=== PATIENT | male | born 1950 | race Caucasian/White ===

== ENCOUNTER 2017-04-15 04:48 | Outpatient (CLI) | payer BC | END 2017-04-15 04:49 | disposition home or self-care (01) | LOC: BICRAD 04:48 | PROVIDERS: ATTEND Internal Medicine Medical Oncology | DX: J18.9 Pneumonia, unspecified organism (principal); J98.6 Disorders of diaphragm; R91.8 Other nonspecific abnormal finding of lung field; I70.90 Unspecified atherosclerosis | CPT/HCPCS: 71020 ==

== ENCOUNTER 2017-09-06 11:19 | Outpatient (CLI) | payer BC | END 2017-09-06 11:20 | disposition home or self-care (01) | LOC: BICRAD 11:19 | PROVIDERS: ATTEND Internal Medicine Medical Oncology | DX: C90.00 Multiple myeloma not having achieved remission (principal); J98.11 Atelectasis | CPT/HCPCS: 71046 ==

== ENCOUNTER 2017-11-20 20:26 | Inpatient (IN) | payer BC ==
[~2017-11-20 20:26] MED LIST: ISOVUE-370 76%-LOCM 1 ML ONE
[2017-11-20] MEDS ORDERED: Acetaminophen 500 MG TAB ONE (21:06)
[2017-11-20 21:11] LABS: Bilirubin Negative (Negative); Blood, Urine Moderate (Negative); Clarity CLEAR (Clear); Glucose, Urine (Dipstick) 100 mg/dL (Negative); Leukocyte Negative (Negative); Nitrite Negative (Negative); Protein, Urine (Dipstick) 300 mg/dL (Neg-Trace); Specific Gravity, Urine 1.009 (1.002-1.036); pH, Urine 7.5 (5.0-9.0)
[2017-11-20 21:13] LABS: Bacteria/HPF None Seen HPF (None Seen); Hyaline Casts/LPF 0-3 HYALINE CAST LPF (0-3 Hyaline); Pathc Cast-AUWi Flag 0.29 (0-2.49); Squamous Epithelial 0-3 HPF (0-3); WBC/HPF None Seen HPF (0-3)
--- NOTE | 2017-11-20 21:24 | RAD ---
AP VIEW OF THE CHEST: 11/20/17 INDICATION: History of productive cough, pain in the right shoulder. FINDINGS: There is a left subclavian chest wall port in place. There is elevation of the left hemidiaphragm whi ch is stable. Gastric bubble versus interposed colon bowel gas underlying the left hemidiaphragm is s uspected. There is suspected mild left basilar atelectasis. Heart size is accentuated by the exam blair hnique. There are vascular calcifications involving the aortic arch. No definite consolidation or pne umothorax is evident. IMPRESSION: Mild left basilar atelectasis. POS: [facility]
[2017-11-20 21:29] LABS: ALT (SGPT) 29 U/L (8-55); AST (SGOT) 25 U/L (5-34); Albumin 3.7 g/dL (3.4-4.8); Alkaline Phosphatase 70 U/L (40-150); Anion Gap 12 mmol/L (10-20); BUN (Urea Nitrogen) 26 mg/dL (8.4-25.7); Bilirubin, Total 1.1 mg/dL (0.2-1.2); Calc. Creatinine Clearance 0 mL/min (70-130); Calcium 9.1 mg/dL (7.8-10.44); Carbon Dioxide 25 mmol/L (23-31); Chloride 102 mmol/L (98-107); Estimated GFR-MDRD 72; Globulin 2.5 g/dL (2.4-3.5); Glucose 136 mg/dL (80-115); Potassium 3.8 mmol/L (3.5-5.1); Protein, Total 6.2 g/dL (5.8-8.1); Sodium 135 mmol/L (136-145)
[2017-11-20] MEDS ORDERED: Meropenem 1 GM in Sodium Chloride 0.9% 100 ML IVPB SCH (21:30)
[2017-11-20] MEDS ORDERED: MEROPENEM 1 GM/50 ML 1 GM in Premix Bag 1 BAG IVPB SCH (21:30)
[2017-11-20 21:34] LABS: Actual Bicarbonate (HCO3a) 26.7 mEq/L (22-28); Base Excess (BEa) 3.3 mEq/L (-2.0 to +3.0); CO2 Tension 35.8 mmHg (35.0-45.0); O2 Tension (PaO2) 72.5 mmHg (> 80.0); pH, Arterial 7.49 (7.35-7.45)
[2017-11-20 21:35] LABS: Hematocrit-ABG 35.2 % (42.0-52.0)
[2017-11-20 21:36] LABS: Analyzer IN Cardio ER; Calcium, Ionized 1.2 mmol/L (1.12-1.30)
[2017-11-20 21:37] LABS: Puncture Site RRA
[2017-11-20 21:42] LABS: Band 6 % (5-11); Hemoglobin 12.2 g/dL (14.0-18.0); Lymphocytes 9 % (21-51); MDiff Complete? YES; Macrocytosis SLIGHT = 6-15 cells (100X) (0-5/hpf); Mean Corpuscular HGB CONC 34.2 g/dL (32.0-36.0); Mean Corpuscular Hemoglobin 37.7 pg (27.0-31.0); Mean Platelet Volume 10.1 fL (7.4-10.4); Monocytes 11 % (0-10); Neutrophil 74 % (42-75); PLT Morphology Comment Appears Decreased; Platelet Count 110 thou/uL (130-400); RBC Distribution Width 12.7 % (11.5-14.5); Red Blood Cell (RBC) Count 3.24 mill/uL (4.70-6.10); White Blood Cell (WBC) Count 14.5 thou/uL (4.8-10.8)
[2017-11-21] MEDS ORDERED: Carvedilol 6.25 MG TAB PO SCH (01:45)
[2017-11-21] MEDS ORDERED: hydrALAZINE 20 MG/ML VIAL ONE (02:59)
[2017-11-21] MEDS ORDERED: Ondansetron ODT 4 MG TAB SL PRN (03:22)
[2017-11-21] MEDS ORDERED: Acetaminophen 325 MG TAB PO PRN (03:22)
[2017-11-21] MEDS ORDERED: Ondansetron HCl/PF 4 MG/2 ML Vial IVP PRN (03:22)
[2017-11-21 03:36] VITALS: BMI 27.4
[2017-11-21] MEDS ORDERED: MEROPENEM 1 GM/50 ML 1 GM in Premix Bag 1 BAG IVPB SCH (06:30)
--- NOTE | 2017-11-21 07:08 | CT ---
CT PULMONARY ANGIO WITH CONTRAST: Multiple axial tomograms are obtained through the chest with IV enhancement following an angio protoc ol with multiplanar reconstruction. INDICATION: Dyspnea. The pulmonary arteries show adequate enhancement. There is no evidence of pulmonary embolus. There is patchy infiltrate in both lung bases, more extensive on the right. The findings suggest an inflammatory infiltrate. Mediastinum is unremarkable. Images through the upper abdomen are unremarka ble. IMPRESSION: 1. No evidence of pulmonary embolus. 2. Bibasilar infiltrates more prominent on the right. POS: [facility]
[2017-11-21] MEDS ORDERED: Amlodipine 5 MG TAB PO PRN ×2 (08:27→17:02)
[2017-11-21] MEDS ORDERED: Metoclopramide 10 MG/10 ML UDCUP PO PRN (08:40)
[2017-11-21] MEDS ORDERED: Vancomycin HCl 1.5 GM in Sodium Chloride 0.9% 250 ML 300 ML IVPB SCH (09:00)
--- NOTE | 2017-11-21 09:41 | HP ---
DATE OF SERVICE: 11/21/2017 PRIMARY CARE PROVIDER: Dr. Stephens CHIEF COMPLAINT: Cough. HISTORY OF PRESENT ILLNESS: This is a 67-year-old male with history of multiple myeloma, currently on chemotherapy every 3 weeks, hypertension, dyslipidemia, history of pulmonary embolus on anticoagulation, coronary artery disease with history of myocardial infarction and stent, who presents to the emergency room with the complaint of a cough and generally feeling bad. Patient reports that on his every 3-week cycle of chemotherapy which he completed 3 days ago, it is generally followed by 1 or 2 days of feeling short of breath that usually self resolves. He notes 2 weeks of a productive cough of light green and vickers sputum, in addition to the usual shortness of breath that was worse this time. He complains of coughing and inability to lay flat, sleeping in a chair for a few nights and noticing shortness of breath both at rest and with exertion. He tried some Tessalon Perles and there was no change, notes that may be some improvement with an [id number] cough medication. He denies any precipitating or relieving factors, and denies any history of breathing disorders. Denies any fevers at home/n/v/abd pain. In the emergency room, patient underwent CT angiogram which shows patchy infiltrates, bibasilar, he was treated with Tylenol 1 gram, vancomycin 15 mg/kg , meropenem 1 gram, carvedilol 6.25 mg, hydralazine, and Hospitalist called for admission for sepsis. ALLERGIES: No known allergies to medications. MEDICATIONS: Reviewed with the list brought in by the patient. 1. Carvedilol 6.25 mg b.i.d. 2. Amlodipine 5 mg daily if needed for elevated blood pressure. 3. Atorvastatin 40 mg daily. 4. Esomeprazole 40 mg daily. 5. Valacyclovir 500 mg daily. 6. Eliquis. There is no dosage on the list; however, patient notes that it was recently cut in half for a history of PE last year which I suspect is 2.5 mg b.i.d. 7. Aspirin 81 mg daily. 8. Zofran if needed for nausea. 9. Furosemide 20 mg daily if needed. PAST MEDICAL HISTORY: 1. Multiple myeloma, undergoing chemotherapy every [address] Trinidad. 2. Coronary artery disease with history of myocardial infarction and stent. 3. Hypertension. 4. Dyslipidemia. 5. History of PE in 2017 on anticoagulation. PAST SURGICAL HISTORY: 1. Appendectomy. 2. Splenectomy. 3. Hernia repair x4. 4. Cholecystectomy. 5. A part of his pancreas removed secondary to impacted gallstones. SOCIAL HISTORY: The patient is . His surrogate decision maker is his , Krista, remote history of tobacco use. No regular alcohol use. FAMILY HISTORY: Significant for hypertension and coronary artery disease. REVIEW OF SYSTEMS: Positive for neck pain. The patient states he is from sitting up sleeping, negative for fevers, chills, nausea, vomiting, abdominal pain, chest pain or body aches. All remaining review of systems is reviewed and negative. PHYSICAL EXAMINATION: VITAL SIGNS: Temperature 97.9, of note in the emergency room, it was 100.6, pulse 73, respirations 18, saturations 96% on 2 liters nasal cannula, blood pressure 174/97. GENERAL: Awake, alert and responsive. Appears uncomfortable, but not in acute distress. HEENT: Pupils equal, round and reactive to light. Oral mucosa is pink and moist. NECK: Supple. Tenderness to palpation along the right trapezius muscle. LYMPHATICS: No palpable supraclavicular or cervical lymphadenopathy. LUNGS: Decreased breath sounds at the bases bilateral. No audible wheezing or rhonchi. HEART: Normal S1, S2. Regular rate and rhythm, no audible murmurs. ABDOMEN: Soft with present bowel sounds. Nontender and nondistended. EXTREMITIES: He has trace pitting edema bilateral in the distal lower extremities. SKIN: No visible rashes. NEUROLOGIC: No focal deficits. PSYCHIATRIC: Euthymic, linear, logical, goal directed thought process. LABORATORY DATA: 1. Reviewed. CBC; 14.5, 12.2, 35.8, 110. 2. Chemistry; 135, 3.8, 102, 25, 26, 1.03, 136. 3. LFTs are normal. 4. Urinalysis; present protein, glucose and moderate blood with 4-6 red blood cells. 5. CT angiogram shows patchy infiltrates, right greater than left at the bases. Negative for PE. 6. Chest x-ray mild basilar atelectasis. Elevated left hemidiaphragm. 7. EKG shows sinus rhythm, right axis deviation, rate of 110, prolonged QT interval with a QT corrected of 519, bifascicular block with a right bundle branch block and a left anterior fascicular block. No ST elevation, but some ST depression in V3 through V6. 8. Blood cultures and urine culture obtained. IMPRESSION: 1. Sepsis attributed to pneumonia in a patient at higher risk secondary to chemotherapy. 2. Hypertension, uncontrolled. 3. History of coronary artery disease, currently asymptomatic. 4. Dyslipidemia. 5. History of pulmonary embolus on anticoagulation. 6. Prolonged QT interval. 7. Neck pain -c/w musculoskeletal etiology. PLAN: 1. Admission to the hospital. Continuing the meropenem and vancomycin that was initiated in the emergency room, following blood and urine cultures, with a request to pharmacy to dose the vancomycin. 2. We will order scheduled nebulizer therapy, some Mucinex for cough and monitor the symptoms, wean oxygen as tolerated. 3. Continuing his home medications of carvedilol and amlodipine. We will also continue the furosemide due to the swelling that he has noted. Monitoring his renal function. Use prn hydralazine for significantly elevated blood pressures. 4. Continuing his other home medications of low dose aspirin, valacyclovir, Eliquis and Nexium. 5. Hold on Zofran due to the prolonged QT interval, if needed we will use some Reglan. 6. Anticipated length of stay is at least 2 midnights as patient is at high risk due to the chemotherapy. 7. Deep venous thrombosis prophylaxis, on Eliquis. 8. Gastrointestinal prophylaxis not indicated. 9. Code status is FULL and surrogate decision maker is his , Krista. 10. The patient is at high risk given age, comorbidities, and current presentation. I reviewed the plan of care with the patient who demonstrates understanding and agrees. No questions or further needs at end of evaluation. MTDD
[2017-11-21] MEDS: valACYclovir 500 MG TAB PO SCH (09:43)
[2017-11-21] MEDS: guaiFENesin/DM ER PO SCH ×2 (09:43→20:29)
[2017-11-21] MEDS: Apixaban 2.5 MG TAB PO SCH ×2 (09:43→20:29)
[2017-11-21] MEDS: Furosemide 20 MG TAB PO SCH (09:44)
[2017-11-21] MEDS: Vancomycin HCl 1.5 GM in Sodium Chloride 0.9% 250 ML 300 ML IVPB SCH ×2 (09:45→22:02)
[2017-11-21] MEDS: MEROPENEM 1 GM/50 ML 1 GM in Premix Bag 1 BAG IVPB SCH ×2 (14:22→21:55)
[2017-11-21] MEDS: Carvedilol 6.25 MG TAB PO SCH (16:11)
[2017-11-21] MEDS: hydrALAZINE 20 MG/ML VIAL SLOW IVP PRN ×2 (16:14→20:29)
--- NOTE | 2017-11-21 17:04 | PDOC.EVN ---
Event Note - Event Note Event Note: called by RN for bp 190's/110's, pt has received hydralazine. He also received his evening dose of carvedilol. Earlier c/o neck pain - tylenol added for prn use. Plan - increase amlodipine to bid prn hypertension (pt takes once daily as needed at home) and add lidoderm patch for neck pain to manage this. RN to call back at any time with any concerns. 18:32/blood pressure improved, now in the 150's. Stopped in to see patient and discussed persistent pain along the trapezius, not responding to heat/ice/ tylenol or laying back. Will try the lidoderm patch and if no improvement a lower dose muscle relaxant - pt advised that this can cause him to be drowsy or feel loopy as it relaxes all muscles. Elevated bp's may be due to pain. Will also schedule the amlodipine with hold parameters for blood pressure less than 140/80. Reviewed the plan of care wiht patient//RN, no questions or further needs at end of eval.
[2017-11-21] MEDS: Lidocaine 5% Patch TD SCH (18:19)
[2017-11-21] MEDS: Amlodipine 5 MG TAB PO SCH (20:29)
[2017-11-21] MEDS: Atorvastatin Calcium 40 MG TAB PO SCH (20:29)
[2017-11-21] MEDS: Cyclobenzaprine 10 MG TAB PO PRN (20:30)
[2017-11-21] MEDS: Acetaminophen 500 MG TAB PO PRN (22:39)
[2017-11-22 05:59] LABS: ALT (SGPT) 20 U/L (8-55); AST (SGOT) 18 U/L (5-34); Albumin 3.1 g/dL (3.4-4.8); Alkaline Phosphatase 62 U/L (40-150); Anion Gap 9 mmol/L (10-20); BUN (Urea Nitrogen) 17 mg/dL (8.4-25.7); Bilirubin, Total 1.4 mg/dL (0.2-1.2); Calc. Creatinine Clearance 126 mL/min (70-130); Calcium 8.5 mg/dL (7.8-10.44); Carbon Dioxide 29 mmol/L (23-31); Chloride 100 mmol/L (98-107); Estimated GFR-MDRD Greater than 90; Globulin 2.2 g/dL (2.4-3.5); Glucose 97 mg/dL (80-115); Potassium 3.5 mmol/L (3.5-5.1); Protein, Total 5.3 g/dL (5.8-8.1); Sodium 134 mmol/L (136-145)
[2017-11-22] MEDS: MEROPENEM 1 GM/50 ML 1 GM in Premix Bag 1 BAG IVPB SCH ×2 (06:12→14:14)
[2017-11-22 06:17] LABS: Acanthocytes SLIGHT = 1-5 cells (100X) (None Seen); Band 6 % (5-11); Eosinophils 2 % (0-10); Hemoglobin 11.1 g/dL (14.0-18.0); Lymphocytes 7 % (21-51); MDiff Complete? YES; Mean Corpuscular HGB CONC 33.7 g/dL (32.0-36.0); Mean Corpuscular Hemoglobin 37.9 pg (27.0-31.0); Mean Platelet Volume 11.1 fL (7.4-10.4); Monocytes 11 % (0-10); Neutrophil 74 % (42-75); Nucleated RBC 2 % (0); Platelet Count 90 thou/uL (130-400); RBC Distribution Width 12.7 % (11.5-14.5); Red Blood Cell (RBC) Count 2.94 mill/uL (4.70-6.10)
[2017-11-22] MEDS: Lidocaine Patch Removal TOP SCH (06:25)
[2017-11-22] MEDS: Acetaminophen 500 MG TAB PO PRN ×2 (08:28→20:09)
[2017-11-22] MEDS: Apixaban 2.5 MG TAB PO SCH ×2 (08:29→20:07)
[2017-11-22] MEDS: guaiFENesin/DM ER PO SCH ×2 (08:29→20:07)
[2017-11-22] MEDS: Cyclobenzaprine 10 MG TAB PO PRN ×2 (08:29→20:09)
[2017-11-22] MEDS: Carvedilol 6.25 MG TAB PO SCH ×2 (08:30→17:26)
[2017-11-22] MEDS: Amlodipine 5 MG TAB PO SCH ×2 (08:30→20:07)
[2017-11-22] MEDS: Furosemide 20 MG TAB PO SCH (08:30)
[2017-11-22] MEDS: valACYclovir 500 MG TAB PO SCH (09:11)
[2017-11-22 09:12] LABS: Vancomycin, Trough 12.6 ug/mL
[2017-11-22] MEDS ORDERED: Vancomycin HCl 1.75 GM in Sodium Chloride 0.9% 500 ML IVPB SCH (10:00)
--- NOTE | 2017-11-22 15:43 | PDOC.PN ---
- Subjective Encounter Start Date: 11/22/17 Encounter Start Time: 15:20 -: old records requested/rev Pt seen and examined, chart reviewed in its entirety, this is my first visit with this patient Pt admitted for increased SOB, jia bibasilar infiltrates. started on Merrem Pt getting Cytoxan plus another agemt, history of splenectomy in 1998, myeloma under treatment No f/c, no n/V/D/c, some cough, small amount of sputum, greenish colored. No acute events only complaint is a warm room all systems reviewed and neg x as per HPI - Objective Resuscitation Status: Resuscitation Status FULL:Full Resuscitation MAR Reviewed: Yes Vital Signs & Weight: Vital Signs (12 hours) Temp Pulse Resp BP BP BP Pulse Ox 11/22/17 12:00 97.9 F 76 20 157/89 H 94 L 11/22/17 09:08 84 20 164/101 H 11/22/17 08:30 84 180/100 H 11/22/17 08:18 98.3 F 84 20 94 L 11/22/17 08:00 98.3 F 84 18 180/100 H 94 L 11/22/17 06:40 85 16 95 11/22/17 05:00 98.8 F 82 16 168/94 H 95 Weight Weight 207 lb 14.4 oz I&O: 11/21/17 11/22/17 11/23/17 06:59 06:59 06:59 Intake Total 270 810 Output Total 300 Balance 270 510 Result Diagrams: 11/22/17 04:41 11/22/17 04:41 Radiology Reviewed by me: Yes EKG Reviewed by me: Yes Phys Exam - Physical Examination Constitutional: NAD HEENT: PERRLA, moist MMs, sclera anicteric, oral pharynx no lesions Neck: no nodes, no JVD, supple, full ROM Respiratory: no wheezing, no rales, no rhonchi, clear to auscultation bilateral Cardiovascular: RRR, no significant murmur, no rub Gastrointestinal: soft, non-tender, no distention, positive bowel sounds Musculoskeletal: no edema, pulses present Neurological: non-focal, normal sensation, moves all 4 limbs Lymphatic: no nodes Psychiatric: normal affect, A&O x 3 Skin: no rash, normal turgor, cap refill <2 seconds Dx/Plan (1) CAP (community acquired pneumonia) Code(s): J18.9 - PNEUMONIA, UNSPECIFIED ORGANISM Status: Acute Qualifiers: Laterality: right Lung location: lower lobe of lung Qualified Code(s): J18.1 - Lobar pneumonia, unspecified organism Comment: bibasilar. patchy, likely atypical. Change to levoflox (2) Immunocompromised Code(s): D84.9 - IMMUNODEFICIENCY, UNSPECIFIED Status: Acute Comment: Myeloma, plus splenctomized plus Chemo. Humoral deficiency. (3) CAD (coronary artery disease) Code(s): I25.10 - ATHSCL HEART DISEASE OF [place] CORONARY ARTERY W/O ANG PCTRS Status: Chronic Qualifiers: Coronary Disease-Associated Artery/Lesion type: [place] artery [place] vs. transplanted heart: [place] heart Associated angina: without angina Qualified Code(s): I25.10 - Atherosclerotic heart disease of [place] coronary artery without angina pectoris (4) Hypertension Code(s): I10 - ESSENTIAL (PRIMARY) HYPERTENSION Status: Acute Qualifiers: Hypertension type: essential hypertension Qualified Code(s): I10 - Essential (primary) hypertension (5) Multiple myeloma Code(s): C90.00 - MULTIPLE MYELOMA NOT HAVING ACHIEVED REMISSION Status: Acute Qualifiers: Multiple myeloma remission status: not in remission Qualified Code(s): C90.00 - Multiple myeloma not having achieved remission - Plan cont current plan of care, plan discussed w/ family, continue antibiotics, respiratory therapy, out of bed/ambulate * .
[2017-11-22] MEDS: Lidocaine 5% Patch TD SCH (17:36)
[2017-11-22] MEDS: Atorvastatin Calcium 40 MG TAB PO SCH (20:07)
[2017-11-23] MEDS: hydrALAZINE 20 MG/ML VIAL SLOW IVP PRN (04:07)
[2017-11-23 05:07] LABS: Anion Gap 9 mmol/L (10-20); BUN (Urea Nitrogen) 15 mg/dL (8.4-25.7); Calc. Creatinine Clearance 116 mL/min (70-130); Calcium 8.8 mg/dL (7.8-10.44); Carbon Dioxide 31 mmol/L (23-31); Chloride 104 mmol/L (98-107); Estimated GFR-MDRD Greater than 90; Glucose 99 mg/dL (80-115); Potassium 3.9 mmol/L (3.5-5.1); Sodium 140 mmol/L (136-145)
[2017-11-23 06:35] LABS: Acanthocytes SLIGHT = 1-5 cells (100X) (None Seen); Band 5 % (5-11); Eosinophils 2 % (0-10); Hemoglobin 11.2 g/dL (14.0-18.0); Lymphocytes 7 % (21-51); MDiff Complete? YES; Macrocytosis SLIGHT = 6-15 cells (100X) (0-5/hpf); Mean Corpuscular HGB CONC 34.1 g/dL (32.0-36.0); Mean Corpuscular Hemoglobin 38.2 pg (27.0-31.0); Mean Platelet Volume 9.7 fL (7.4-10.4); Monocytes 18 % (0-10); Neutrophil 68 % (42-75); PLT Morphology Comment Appears Decreased; Platelet Count 128 thou/uL (130-400); RBC Distribution Width 12.7 % (11.5-14.5); Red Blood Cell (RBC) Count 2.94 mill/uL (4.70-6.10); White Blood Cell (WBC) Count 7.7 thou/uL (4.8-10.8)
[2017-11-23] MEDS: valACYclovir 500 MG TAB PO SCH (08:38)
[2017-11-23] MEDS: Apixaban 2.5 MG TAB PO SCH (08:38)
[2017-11-23] MEDS: Cyclobenzaprine 10 MG TAB PO PRN (08:38)
[2017-11-23] MEDS: Acetaminophen 500 MG TAB PO PRN (08:39)
[2017-11-23] MEDS: Carvedilol 6.25 MG TAB PO SCH (08:39)
[2017-11-23] MEDS: guaiFENesin/DM ER PO SCH (08:39)
[2017-11-23] MEDS: Lidocaine Patch Removal TOP SCH (08:40)
[2017-11-23] MEDS: Furosemide 20 MG TAB PO SCH (08:40)
[2017-11-23] MEDS: Amlodipine 5 MG TAB PO SCH (08:40)
[2017-11-23 15:21] VITALS: BP 151/92; TEMP 98.4
== END 2017-11-23 15:40 | disposition home or self-care (01) | DRG 871 ==
LOC: ERS 20:26 → T4-A 11-21 01:15
PROVIDERS: ADMIT Hospitalist; ATTEND Hospitalist
DX: A41.9 Sepsis, unspecified organism (principal); J18.1 Lobar pneumonia, unspecified organism; C90.00 Multiple myeloma not having achieved remission; I45.2 Bifascicular block; Y95 Nosocomial condition; I10 Essential (primary) hypertension; E78.5 Hyperlipidemia, unspecified; I25.10 Atherosclerotic heart disease of native coronary artery without angina pectoris; M54.2 Cervicalgia; I45.81 Long QT syndrome; Z95.5 Presence of coronary angioplasty implant and graft; Z87.891 Personal history of nicotine dependence; Z79.899 Other long term (current) drug therapy; Z79.01 Long term (current) use of anticoagulants; Z79.82 Long term (current) use of aspirin; Z82.49 Family history of ischemic heart disease and other diseases of the circulatory system; Z92.21 Personal history of antineoplastic chemotherapy; Z86.711 Personal history of pulmonary embolism; Z87.19 Personal history of other diseases of the digestive system; I25.2 Old myocardial infarction; Z90.49 Acquired absence of other specified parts of digestive tract; Z90.81 Acquired absence of spleen; Z90.411 Acquired partial absence of pancreas
CPT/HCPCS: 36415; 71045; 71275; 80048; 80053; 80202; 81003; 81015; 82805; 83605; 83735; 85025; 87040; 87086; 93005; 94640; 94760; 96365; 96367; 96375; J0360; J1956; J2185; J3370; J7050; J7620

== ENCOUNTER 2018-04-11 10:44 | Emergency (ER) | payer MEDICARE, BC ==
[2018-04-11] MEDS ORDERED: Acetaminophen 500 MG TAB ONE (11:29)
[2018-04-11] MEDS ORDERED: Morphine 4 MG/ML VIAL ONE (11:30)
--- NOTE | 2018-04-11 12:19 | RAD ---
CHEST 2 VIEWS: HISTORY: Chest pain. Fall. Right low back pain. COMPARISON: Chest radiograph 11/20/2017. FINDINGS: Port catheter tip sits at the superior SVC. Small right effusion. Interposition of bowel between the left hemidiaphragm and the spleen with what appears to be some air fluid levels. No pneumothorax. No displaced right-sided rib fracture. IMPRESSION: 1. Interposition of bowel between the right hemidiaphragm and the spleen with some air fluid levels. Differential includes ileus versus early small bowel obstruction. 2. Mild medial cortical deformity of the right lateral 8th rib may reflect a nondisplaced fracture. POS: [facility]
--- NOTE | 2018-04-11 12:22 | RAD ---
RIGHT RIBS 3 VIEWS: HISTORY: Fall. Injury. COMPARISON: None. FINDINGS: There is a subtle medial cortical deformity of the lateral right 8th rib as well as of the lateral ri ght 9th rib. No pneumothorax. Small right effusion. Port catheter tip is in similar position. Air fluid levels left upper quadrant of the abdomen, likely small bowel. IMPRESSION: 1. Likely nondisplaced right lateral 8th and 9th rib fractures. No underlying pneumothorax. 2. Possible early small bowel obstruction versus ileus. POS: [facility]
== END 2018-04-11 12:30 | disposition home or self-care (01) ==
LOC: ERS 10:44
DX: S22.41XA Multiple fractures of ribs, right side, initial encounter for closed fracture (principal); K56.7 Ileus, unspecified; Z79.899 Other long term (current) drug therapy; Z79.82 Long term (current) use of aspirin; Z79.891 Long term (current) use of opiate analgesic; W19.XXXA Unspecified fall, initial encounter
CPT/HCPCS: 71046; 96372; J2270

== ENCOUNTER 2018-05-14 13:36 | Emergency (ER) | payer MEDICARE, BC ==
[2018-05-14] MEDS ORDERED: Bacitracin Zinc 1 Packet ONE (14:43)
--- NOTE | 2018-05-14 15:35 | CT ---
CT HEAD WITHOUT CONTRAST: DATE: 05/14/2018. COMPARISON: 06/27/2002. HISTORY: Injury, trauma, pain. TECHNIQUE: Axial CT imaging at 5 mm intervals from the vertex through the skull base without contrast. FINDINGS: There is mild mucosal thickening involving the sphenoid sinus and ethmoid air cells on the left. The re is a focal area of scalp swelling in the anterior frontal region superior to the right orbit. No displaced calvarial fracture. No intracranial hemorrhage, midline shift, mass effect, or ventricu lar enlargement. IMPRESSION: Frontal scalp swelling with no displaced fracture or intracranial hemorrhage. POS: [facility]
--- NOTE | 2018-05-14 15:39 | CT ---
FACIAL BONE CT: DATE: 05/14/2018. COMPARISON: None. History Injury, trauma, pain. TECHNIQUE: Axial CT imaging at 2.5 mm intervals through the facial bones without contrast. Coronal and sagittal reformatted imaging obtained. FINDINGS: A small area of frontal scalp swelling in the right supraorbital region noted. Frontal sinuses unrem arkable. There is mucosal thickening involving the ethmoid air cells bilaterally, right greater than left, the left sphenoid sinus, and the left maxillary sinus. N displaced nasal bone fracture. Zygomatic arches and pterygoid plates intact. Bilateral temporoman dibular joints appear within normal limits. No mandibular fracture is seen. Coronal imaging demonstrates no evidence for a fracture of the orbital floor or medial orbital wall o n either side. IMPRESSION: No maxillofacial fracture identified. Paranasal sinus disease as detailed above. POS: [facility]
--- NOTE | 2018-05-14 15:40 | RAD ---
LEFT ELBOW 4 VIEWS: DATE: 05/14/2018. COMPARISON: None. HISTORY: Fall, trauma, pain. FINDINGS: No definite elbow joint effusion. Mild enthesophyte formation at insertion of triceps tendon. No di splaced fracture or dislocation. IMPRESSION: No displaced fracture or evidence of dislocation. POS: [facility]
--- NOTE | 2018-05-14 15:43 | CT ---
CERVICAL SPINE CT WITHOUT CONTRAST 05/14/18 HISTORY: Injury, trauma, pain. TECHNIQUE: Axial CT imaging at 2.5 mm intervals through the cervical spine with coronal and sagittal reformatte d imaging. FINDINGS: The occipital condyles, the dens, and the C1-2 articulation demonstrate no acute findings. There is moderate degenerative change at the atlantoaxial interspace. There is minimal anterolisthesis of C4 on C5 measuring 3 mm. Imaged lung apices grossly unremarkable. Benign hemangioma noted within the right aspect of the C4 vertebral body. No evidence for dens fracture. C1 ring intact. Prominent facet hypertrophy bilaterally at C3-4, right greater than left. Disc space narrowing and mi ld posterior osteophyte present. Prominent bilateral facet hypertrophy at C4-5. At C5-6. There is dis c space narrowing and posterior osteophyte formation as well as mild bilateral facet hypertrophy. At C6-7, there is disc space narrowing, degenerative end plate change, anterior osteophyte formation and posterior osteophyte causing probable significant central canal stenosis. There is no displaced frac ture or evidence of dislocation seen. IMPRESSION: Multilevel degenerative change within the cervical spine, including posterior osteophyte at C6-7 with associated significant central canal stenosis. No acute fracture or dislocation is evident. POS: [facility]
== END 2018-05-14 15:44 | disposition home or self-care (01) ==
LOC: ERS 13:36
DX: S00.33XA Contusion of nose, initial encounter (principal); S00.83XA Contusion of other part of head, initial encounter; S00.03XA Contusion of scalp, initial encounter; I10 Essential (primary) hypertension; Z79.899 Other long term (current) drug therapy; W19.XXXA Unspecified fall, initial encounter
CPT/HCPCS: 70450; 70486; 72125

== ENCOUNTER 2018-06-06 11:36 | Inpatient (IN) | payer MEDICARE, BC ==
--- NOTE | 2018-06-06 12:19 | RAD ---
CHEST 2 VIEWS: Date: 06/06/18 HISTORY: Cough with shortness of breath. COMPARISON: 04/11/18. FINDINGS: Left central line and injection port. Monitor leads overlie the chest. Minimal left hemidiaphragm ca vation with some parenchymal changes adjacent to the hemidiaphragm in the left lower lobe and some mi ld linear stranding in the right infrahilar region and blunting of the right costophrenic angle, all of which appear stable from prior study. No new confluent pneumonia or overt edema. IMPRESSION: Stable chronic bibasilar changes. No evidence for pneumonia. Atherosclerosis of aorta. No new process . POS: [facility]
[2018-06-06 13:24] LABS: Bilirubin Small (Negative); Blood, Urine Large (Negative); Clarity CLEAR (Clear); Glucose, Urine (Dipstick) Negative (Negative); Leukocyte Negative (Negative); Nitrite Negative (Negative); Protein, Urine (Dipstick) > or equal to 300 mg/dL (Neg-Trace); Specific Gravity, Urine 1.026 (1.002-1.036)
[2018-06-06 13:26] LABS: Hemoglobin 12.8 g/dL (14.0-18.0); Mean Corpuscular HGB CONC 32.9 g/dL (32.0-36.0); Mean Corpuscular Hemoglobin 36.7 pg (27.0-31.0); Red Blood Cell (RBC) Count 3.48 mill/uL (4.70-6.10); White Blood Cell (WBC) Count 10.4 thou/uL (4.8-10.8)
[2018-06-06 13:26] LABS: Bacteria/HPF None Seen HPF (None Seen); Hyaline Casts/LPF 7-10 HYALINE CAST LPF (0-3 Hyaline); Pathc Cast-AUWi Flag 1.88 (0-2.49)
[2018-06-06 13:40] LABS: Renal Epithelial None Seen HPF (0-3); Transitional Epithelial NONE SEEN HPF (0-3)
[2018-06-06 13:41] LABS: Acanthocytes SLIGHT = 1-5 cells (100X) (None Seen); Band 8 % (5-11); Lymphocytes 13 % (21-51); MDiff Complete? YES; Macrocytosis SLIGHT = 6-15 cells (100X) (0-5/hpf); Mean Platelet Volume 11.8 fL (7.4-10.4); Monocytes 9 % (0-10); Neutrophil 70 % (42-75); Nucleated RBC 1 % (0); Platelet Count 60 thou/uL (130-400); Platelet Morphology Comment Appears Decreased; Polychromasia SLIGHT = 2-3 cells (100X) (0-2/hpf); RBC Distribution Width 13.5 % (11.5-14.5); Schistocytes SLIGHT = 2-5 cells (100X) (0-1/hpf)
[2018-06-06 13:45] LABS: ALT (SGPT) 31 U/L (8-55); AST (SGOT) 37 U/L (5-34); Albumin 3.3 g/dL (3.4-4.8); Alkaline Phosphatase 60 U/L (40-150); Anion Gap 13 mmol/L (10-20); BUN (Urea Nitrogen) 27 mg/dL (8.4-25.7); Bilirubin, Total 1.6 mg/dL (0.2-1.2); Calc. Creatinine Clearance 0 mL/min (70-130); Calcium 8.5 mg/dL (7.8-10.44); Carbon Dioxide 28 mmol/L (23-31); Chloride 98 mmol/L (98-107); Estimated GFR-MDRD 69; Globulin 2.2 g/dL (2.4-3.5); Glucose 100 mg/dL (80-115); Potassium 3.5 mmol/L (3.5-5.1); Protein, Total 5.5 g/dL (5.8-8.1); Sodium 135 mmol/L (136-145)
[2018-06-06] MEDS ORDERED: Oseltamivir 75 MG CAP PO SCH (14:15)
[2018-06-06] MEDS ORDERED: Acetaminophen 325 MG TAB ONE (14:56)
[2018-06-06] MEDS ORDERED: Ondansetron PF 4 MG/2 ML Vial IVP PRN (15:58)
[2018-06-06] MEDS ORDERED: Calcium Carbonate 500 MG ChewTAB PO PRN (15:58)
[2018-06-06] MEDS ORDERED: Acetaminophen 325 MG TAB PO PRN (15:58)
[2018-06-06] MEDS ORDERED: Senokot S 8.6-50 MG TAB PO PRN (15:58)
[2018-06-06] MEDS ORDERED: Dextrose 5 %-0.45 % NaCl 1,000 ML IV SCH (16:00)
[2018-06-06] MEDS ORDERED: hydrALAZINE 20 MG/ML VIAL SLOW IVP PRN (16:01)
[2018-06-06] MEDS ORDERED: Amlodipine 5 MG TAB PO PRN (16:02)
--- NOTE | 2018-06-06 16:23 | HP ---
PRIMARY CARE PHYSICIAN: Richardson Stephens MD CHIEF COMPLAINT: Fever, chills with cough of one week duration. HISTORY OF PRESENT ILLNESS: The patient is a 67-year-old male with multiple myeloma with recent chemotherapy, presented to the emergency room with above symptoms. Over the last 1 week, the patient developed gradual worsening cough along with shortness of breath, wheezing, fever, and chills. The cough was productive of whitish to green sputum. He had several family members with similar symptoms; however, no one has been diagnosed with flu. He did not take his flu shot due to immunosuppression. He was unable to sleep last night due to persistent coughing and shortness of breath. No orthopnea, paroxysmal nocturnal dyspnea, or leg swelling reported. He denies any skin rash, dysuria, hematuria, urgency, nausea, vomiting, or diarrhea. No altered mentation was reported. In the emergency room, initial vital signs showed temperature 100.3, respirations 22, pulse rate of 73, blood pressure of 186/115 with O2 saturation 96% on room air. Influenza A was positive in the emergency room. Chest x-ray was negative for definite infiltrate. He received Tamiflu, Tylenol with breathing treatment in the emergency room with some improvement in his symptoms. PAST MEDICAL HISTORY: 1. Multiple myeloma. 2. Coronary artery disease with VT and stent placement. 3. History of pulmonary embolism in 2017, on anticoagulation. 4. Hypertension. 5. Dyslipidemia. 6. Paroxysmal atrial fibrillation. PAST SURGICAL HISTORY: 1. Appendectomy. 2. Venectomy. 3. Hernia repair. 4. Cholecystectomy. 5. Partial pancreatectomy due to impacted gallstone. 6. MediPort placement. ALLERGIES: NO KNOWN DRUG ALLERGIES. HOME MEDICATIONS: Verified; 1. Eliquis 2.5 b.i.d. 2. Amlodipine as needed. 3. Carvedilol 25 b.i.d. 4. Citalopram 10 mg daily. 5. Nexium 40 mg daily. 6. Zofran as needed. 7. Valtrex 500 mg daily. 8. Lipitor 40 mg daily. 9. Aspirin 81 mg daily. SOCIAL HISTORY: The patient is , lives at home with his . He denies current use of smoking. He is a former smoker. He makes his own decision with the help of his , Krista. FAMILY HISTORY: Positive for hypertension and coronary artery disease. REVIEW OF SYSTEMS: All other review of systems was reviewed and was negative. PHYSICAL EXAMINATION: VITAL SIGNS: As discussed above. GENERAL: A 67-year-old male with generalized weakness and fatigue. Ill appearing. HEENT: Head, atraumatic and normocephalic. Sclerae anicteric. Moist mucous membranes. Minimal erythema over the pharynx noted. No other oral lesions. NECK: Supple. No JVD. No neck stiffness. LUNGS: Showed rales at bilateral bases with scattered wheezing. No significant accessory muscle use. LUNGS: Symmetrical. Please note that the patient recently received breathing treatments. HEART: S1 and S2 present, regular. No heaves or pulsation. 2/6 systolic murmur over the mitral area. ABDOMEN: Soft and nontender. Bowel sounds present. EXTREMITIES: No edema or calf tenderness. NEUROLOGIC: Grossly nonfocal. Moves all 4 extremities. PSYCHIATRY: Alert, awake, and oriented x3. LYMPH NODE: No palpable lymph nodes in the neck. PERIPHERAL VASCULAR: Radial pulses palpable bilaterally. MUSCULOSKELETAL: No joint swelling tenderness. LABORATORY FINDINGS: Influenza testing as discussed above. WBC count was 10.4 with hemoglobin 12.8, hematocrit 38.8, and platelet of 60. He had 8% bandemia with 13% lymphocytes. Please note that the patient chronically has low WBCs. Last year, his WBC was 4.8. Procalcitonin level was 0.08. Sodium 135, potassium 3.5, chloride 98, bicarb 28, BUN 27, creatinine 1.06, total bilirubin 1.6. AST 37, ALT 31, alkaline phosphatase 60, albumin 3.3 with total protein 5.5. Total bilirubin last week was 0.6. Chest x-ray by my review showed increased bronchopulmonary markings at bases. No definite infiltrate was appreciated. IMPRESSION: 1. Systemic inflammatory response syndrome secondary to influenza A with suspected pneumonia. 2. Abnormal LFTs, probably secondary to #1. 3. Mild hyponatremia. 4. Dehydration. 5. Abnormal LFTs, probably secondary to #1. 6. Moderate protein-calorie malnutrition. 7. Macrocytic anemia. His vitamin B12 was in the low-normal range in 2017 at 300. 8. History of pulmonary embolism and paroxysmal atrial fibrillation, on anticoagulation. 9. Coronary artery disease, status post myocardial infarction and stent placement. 10. Hypertension, uncontrolled at this time. 11. Dyslipidemia. PLAN: The patient will be monitored on the medical floor. We will continue Tamiflu. We will also start empiric antibiotics for suspected pneumonia. Isolation. Gentle hydration. We will resume all of his home medication except for statins due to abnormal LFTs. We will add nebulizer treatment along with Mucinex. We will also start vitamin B12 and folic acid supplementation given his macrocytosis. Blood cultures have been sent. We will recheck labs in a.m. Plan of care was discussed with the patient and the family at the bedside. They stated understanding. Job ID: [id number]
[2018-06-06 17:13] VITALS: BMI 27.1
[2018-06-06] MEDS ORDERED: Prevnar 13-Val Conj/PF 0.5 ML SYRINGE IM ONE (17:15)
[2018-06-06] MEDS ORDERED: Lactated Ringer's 1,000 ML IV SCH (17:15)
[2018-06-06] MEDS: Carvedilol 25 MG TAB PO SCH (17:46)
[2018-06-06] MEDS: Budesonide 0.5 MG/2 ML NEB INH SCH (18:43)
[2018-06-06] MEDS: guaiFENesin ER 600 MG TAB PO SCH (21:50)
[2018-06-06] MEDS: Apixaban 5 MG TAB PO SCH (21:50)
[2018-06-06] MEDS: Oseltamivir 75 MG CAP PO SCH (21:55)
[2018-06-06] MEDS: Dextrose 5 %-0.45 % NaCl 1,000 ML IV SCH (22:32)
[2018-06-07] MEDS: cloNIDine 0.1 MG TAB PO PRN (01:17)
[2018-06-07 07:47] LABS: Hemoglobin 11.4 g/dL (14.0-18.0); Mean Corpuscular Hemoglobin 36.8 pg (27.0-31.0); Mean Platelet Volume 6.6 fL (7.4-10.4); Platelet Count 53 thou/uL (130-400); RBC Distribution Width 13.4 % (11.5-14.5)
[2018-06-07] MEDS: Budesonide 0.5 MG/2 ML NEB INH SCH ×2 (07:56→17:57)
[2018-06-07 08:01] LABS: ALT (SGPT) 23 U/L (8-55); AST (SGOT) 28 U/L (5-34); Albumin 2.8 g/dL (3.4-4.8); Alkaline Phosphatase 49 U/L (40-150); Anion Gap 13 mmol/L (10-20); BUN (Urea Nitrogen) 22 mg/dL (8.4-25.7); Bilirubin, Total 1.5 mg/dL (0.2-1.2); Calc. Creatinine Clearance 113 mL/min (70-130); Calcium 7.8 mg/dL (7.8-10.44); Carbon Dioxide 24 mmol/L (23-31); Chloride 101 mmol/L (98-107); Estimated GFR-MDRD Greater than 90; Globulin 1.8 g/dL (2.4-3.5); Glucose 93 mg/dL (80-115); Magnesium 1.5 mg/dL (1.6-2.6); Phosphorus 2.4 mg/dL (2.3-4.7); Protein, Total 4.6 g/dL (5.8-8.1); Sodium 135 mmol/L (136-145)
[2018-06-07] MEDS: Carvedilol 25 MG TAB PO SCH ×2 (08:28→16:17)
[2018-06-07] MEDS: Apixaban 5 MG TAB PO SCH ×2 (08:29→19:55)
[2018-06-07] MEDS: Cyanocobalamin (Vitamin B-12) 1,000 MCG TAB PO SCH (08:29)
[2018-06-07] MEDS: Folic Acid 1 MG TAB PO SCH (08:30)
[2018-06-07] MEDS: Multivit, Therapeutic 1 TAB PO SCH (08:30)
[2018-06-07] MEDS: Citalopram 10 MG TAB PO SCH (08:30)
[2018-06-07] MEDS: Aspirin 81 mg Enteric Coated Tablet PO SCH (08:30)
[2018-06-07] MEDS: guaiFENesin ER 600 MG TAB PO SCH ×2 (08:30→19:56)
[2018-06-07 08:33] LABS: Band 4 % (5-11); Lymphocytes 4 % (21-51); MDiff Complete? YES; Macrocytosis MODERATE=16-30 cells (100X) (0-5/hpf); Monocytes 7 % (0-10); Neutrophil 85 % (42-75); Nucleated RBC 2 % (0); Ovalocytes SLIGHT = 2-5 cells (100X) (0-1/hpf); Platelet Morphology Comment Appears Decreased
[2018-06-07] MEDS: Oseltamivir 75 MG CAP PO SCH ×2 (08:43→19:55)
[2018-06-07] MEDS: valACYclovir 500 MG TAB PO SCH (08:43)
[2018-06-07] MEDS ORDERED: Non-Formulary Item 1 EACH (Esomeprazole Magnesium [Nexium] 40 MG) PO SCH (09:00)
[2018-06-07] MEDS ORDERED: Aspirin Chewable 81 MG TAB PO SCH (09:00)
[2018-06-07] MEDS ORDERED: Potassium Chloride 20 MEQ TAB PO SCH (09:15)
[2018-06-07] MEDS ORDERED: Magnesium Sulfate 2 GM in Sodium Chloride 0.9% 100 ML IVPB SCH (09:15)
[2018-06-07] MEDS ORDERED: Magnesium 2 GM/50 ML 2 GM in Premix Bag 1 BAG IVPB SCH (10:00)
[2018-06-07] MEDS: Potassium Chloride 20 MEQ TAB PO SCH ×2 (13:47→16:17)
[2018-06-07] MEDS: Dextrose 5 %-0.45 % NaCl 1,000 ML IV SCH (13:49)
--- NOTE | 2018-06-07 17:21 | PDOC.PN ---
- Subjective Encounter Start Date: 06/07/18 Encounter Start Time: 10:30 Patient seen and examined for SIRS/Flu. Dry cough. Feels gen weak. No other complaints. No overnight events - Objective Resuscitation Status - Order Detail: 06/06/18 15:52 Resuscitation Status Routine Resuscitation Status: FULL: Full Resuscitation MAR Reviewed: Yes Vital Signs & Weight: Vital Signs (12 hours) Temp Pulse Resp BP Pulse Ox 06/07/18 16:15 98.6 F 62 20 155/91 H 96 06/07/18 14:18 65 16 06/07/18 12:00 98.1 F 62 20 130/77 97 06/07/18 10:23 60 16 06/07/18 07:57 96 06/07/18 07:56 75 16 96 06/07/18 07:21 99.0 F 65 18 179/100 H 96 Weight Weight 200 lb I&O: 06/06/18 06/07/18 06/08/18 06:59 06:59 06:59 Intake Total 929 100 Output Total 700 Balance 229 100 Result Diagrams: 06/07/18 06:55 06/07/18 06:55 Phys Exam - Physical Examination Constitutional: NAD Respiratory: no wheezing Rales at bases with scat rhonchi Cardiovascular: RRR, no rub Gastrointestinal: soft, non-tender, positive bowel sounds Musculoskeletal: no edema Neurological: moves all 4 limbs Dx/Plan - Plan IMPRESSION: 1. SIRS secondary to influenza A with suspected pneumonia. ?Strep 2. 1/2 Strep bacteremia 3. Abnormal LFTs, probably secondary to #1. 4. Hyponatremia/Hypokalemia/Hypomagnesemia 5. Dehydration. 6. Moderate protein-calorie malnutrition. 7. Macrocytic anemia - due to relative vitamin B12 deficiency 8. History of pulmonary embolism and paroxysmal atrial fibrillation, on anticoagulation. 9. Coronary artery disease, status post myocardial infarction and stent placement. 10. Hypertension, uncontrolled at this time. 11. Dyslipidemia. PLAN: Cont Levaquin Cont Tamiflu Consult ID due to Strep bacteremia 1/2 Cont IVF - reduce rate Replace electrolytes AM labs Cont other meds as below Ambulate Microbiology 06/06/18 Unknown Nasal swab Influenza Types A,B Direct EIA - Final 06/06/18 13:09 Venous blood - Left Arm Blood Culture - Preliminary Streptococcus species 06/06/18 13:04 Venous blood - Right Arm Blood Culture - Preliminary Specimen has been received and culture in progress. No Growth to date. 06/06/18 12:56 Urine voided Urine Culture - Preliminary NO GROWTH AT 12 HOURS Laboratory Tests 06/07/18 06:55 Magnesium 1.5 L Total Bilirubin 1.5 H Review of Systems - Review of Systems Constitutional: weakness (gen) Respiratory: Cough, Dry. negative: Shortness of Breath, Hemoptysis, SOB with Excertion, Pleuritic Pain, Sputum, Wheezing Cardiovascular: negative: chest pain, palpitations, orthopnea, paroxysmal nocturnal dyspnea, edema, light headedness, other Gastrointestinal: negative: Nausea, Vomiting, Abdominal Pain, Diarrhea, Constipation, Melena, Hematochezia, Other - Medications/Allergies Allergies/Adverse Reactions: Allergies Allergy/AdvReac Type Severity Reaction Status Date / Time No Known Allergies Allergy Verified 06/06/18 16:52 Medications: Current Medications Acetaminophen (Tylenol) 650 mg PO Q6H PRN PRN Reason: Headache/Fever/Mild Pain (1-3) Albuterol/Ipratropium (Duoneb) 3 ml NEB [id number] [facility] Last Admin: 06/07/18 14:18 Dose: 3 ml Albuterol/Ipratropium (Duoneb) 3 ml NEB Q2H PRN PRN Reason: SOB &/or Wheezing Amlodipine Besylate (Norvasc) 5 mg PO DAILY PRN PRN Reason: SBP >160 Apixaban (Eliquis) 2.5 mg PO BID [facility] Last Admin: 06/07/18 08:29 Dose: 2.5 mg Aspirin (Ecotrin) 81 mg PO DAILY [facility] Last Admin: 06/07/18 08:30 Dose: 81 mg Budesonide (Pulmicort Neb Solution) 0.5 mg INH BID-RT [facility] Last Admin: 06/07/18 07:56 Dose: 0.5 mg Calcium Carbonate (Tums) 1,000 mg PO Q4H PRN PRN Reason: Heartburn or Indigestion Carvedilol (Coreg) 25 mg PO BID-WM [facility] Last Admin: 06/07/18 16:17 Dose: 25 mg Citalopram Hydrobromide (Celexa) 10 mg PO DAILY [facility] Last Admin: 06/07/18 08:30 Dose: 10 mg Clonidine (Catapres) 0.1 mg PO Q4H PRN PRN Reason: Systolic BP > 180 Last Admin: 06/07/18 01:17 Dose: 0.1 mg Cyanocobalamin (Vitamin B-12) 1,000 mcg PO DAILY [facility] Last Admin: 06/07/18 08:29 Dose: 1,000 mcg Folic Acid (Folvite) 1 mg PO DAILY [facility] Last Admin: 06/07/18 08:30 Dose: 1 mg Guaifenesin (Mucinex) 600 mg PO Q12HR [facility] Last Admin: 06/07/18 08:30 Dose: 600 mg Hydralazine HCl (Apresoline) 10 mg SLOW IVP Q4H PRN PRN Reason: SBP Greater Than 180 Last Admin: 06/07/18 04:18 Dose: 10 mg Levofloxacin 750 mg/ Device 150 mls @ 100 mls/hr IVPB Q24HR [facility] Last Admin: 06/07/18 16:17 Dose: 150 mls Dextrose/Sodium Chloride (D5 1/2 Ns) 1,000 mls @ 50 mls/hr IV .Q20H [facility] Last Admin: 06/07/18 13:49 Dose: 1,000 mls Multivitamins (Theragran) 1 tab PO DAILY [facility] Last Admin: 06/07/18 08:30 Dose: 1 tab Ondansetron HCl (Zofran) 4 mg IVP Q6H PRN PRN Reason: Nausea/Vomiting Oseltamivir Phosphate (Tamiflu) 75 mg PO BID [facility] Stop: 06/10/18 21:01 Last Admin: 06/07/18 08:43 Dose: 75 mg Pantoprazole Sodium (Protonix) 40 mg PO DAILY [facility] Last Admin: 06/07/18 08:30 Dose: 40 mg Potassium Chloride (K-Dur) 20 meq PO TID-[facility] Stop: 06/07/18 23:59 Last Admin: 06/07/18 16:17 Dose: 20 meq Senna/Docusate Sodium (Senokot S) 2 tab PO BID PRN PRN Reason: Constipation Sodium Chloride (Flush - Normal Saline) 10 ml IVF PRN PRN PRN Reason: Saline Flush Last Admin: 06/07/18 08:31 Dose: 10 ml Valacyclovir HCl (Valtrex) 500 mg PO QAM [facility] Last Admin: 06/07/18 08:43 Dose: 500 mg
--- NOTE | 2018-06-07 23:16 | CON ---
DATE OF CONSULTATION: 06/07/2018 REASON FOR CONSULTATION: Influenza and bacteremia. HISTORY OF PRESENT ILLNESS: A 67-year-old, history of multiple myeloma, currently on Cytoxan and proteasome inhibitor, who developed cough, progressively worsening for the past week, fever and chills, some sputum production. Initial findings showed temperature 100.3, respiratory rate 22, pulse 73, BP 180/115. Chest x-ray did not show any infiltrates. He was given Tamiflu and admitted. White cell count 10.4, hemoglobin 12.8. Chemistry showed a creatinine of 1.06. Urinalysis with 7-10 wbc's and microbiology with Streptococcus species in one set of blood cultures out of two. Final ID of the organism is pending. The urine culture with no growth at 12 hours and influenza test was positive for influenza A antigen. He is currently receiving Eliquis, Norvasc, and levofloxacin as well as valacyclovir as well as Tamiflu. Feels a little better. No headaches, no visual symptoms. Little bit of cough, but no sputum production. No chest pain. No abdominal pain. No diarrhea. No genitourinary symptoms. No joint symptoms. MEDICAL HISTORY: Multiple myeloma, on Cytoxan and a proteasome inhibitor. Coronary artery disease, pulmonary embolism, hypertension, dyslipidemia, paroxysmal atrial fibrillation. PAST SURGICAL HISTORY: Appendectomy, venectomy, hernia repair, cholecystectomy, pancreatectomy for impacted gallstone, MediPort placement. ALLERGIES: NONE. SOCIAL HISTORY: . Lives in the area. Former smoker. FAMILY HISTORY: Hypertension, coronary artery disease. CURRENT MEDS: I have listed them above. PHYSICAL EXAMINATION: VITAL SIGNS: Temperature has been normal. T-max 99, blood pressure 150/90, pulse 62, respirations 20, O2 saturation 96%. GENERAL: Appears in no distress. Port access appears okay. HEENT: No lymphadenopathy. Ocular movements are conjugate. Mild conjunctival hyperemia. Nasal and ear exam normal. Oral cavity is normal. NECK: Supple. LUNGS: With scattered bilateral rhonchi and wheezing. A few crackles here and there. HEART: S1 and S2. Regular rate. No S3 or S4. ABDOMEN: Soft, not distended or tender. No ascites. No bladder distention. EXTREMITIES: No joint inflammatory activity. Moves extremities equally. NEUROLOGIC: Cognitive function appears to be intact. LABORATORY DATA: Followup labs; white cell count 9.0, hemoglobin 11.4, platelets 53,000, 85% neutrophils, 4% bands. Magnesium 1.5, bilirubin 1.5. Transaminases normal, alkaline phosphatase 49. ASSESSMENT: Influenza A in the setting of multiple myeloma, in absence of influenza vaccination. Multiple myeloma is not a contraindication for inactivated influenza vaccine. He needs to receive it before he gets discharged. The patient is with immunosuppression associated influenza, may have longer period of viral excretion. He may have to extend the Tamiflu treatment for a few more days beyond the usual five days' time course of treatment for immunocompetent patients. Streptococcus bacteremia might be significant and we will have to wait for the final identification of the organism, but most likely, he will be able to be converted to oral beta-lactam such as amoxicillin for discharge planning. The bacteremia is transient, I do not see any areas of deep-seated involvement at this point in time. Job ID: [id number]
[2018-06-08] MEDS: cloNIDine 0.1 MG TAB PO PRN (05:22)
[2018-06-08] MEDS: Budesonide 0.5 MG/2 ML NEB INH SCH (06:20)
[2018-06-08] MEDS: Carvedilol 25 MG TAB PO SCH (08:03)
[2018-06-08] MEDS: valACYclovir 500 MG TAB PO SCH (08:03)
[2018-06-08] MEDS: Aspirin 81 mg Enteric Coated Tablet PO SCH (08:03)
[2018-06-08] MEDS: Apixaban 5 MG TAB PO SCH (08:03)
[2018-06-08] MEDS: guaiFENesin ER 600 MG TAB PO SCH (08:04)
[2018-06-08] MEDS: Multivit, Therapeutic 1 TAB PO SCH (08:04)
[2018-06-08] MEDS: Cyanocobalamin (Vitamin B-12) 1,000 MCG TAB PO SCH (08:04)
[2018-06-08] MEDS: Citalopram 10 MG TAB PO SCH (08:04)
[2018-06-08] MEDS: Oseltamivir 75 MG CAP PO SCH (08:04)
[2018-06-08] MEDS: Folic Acid 1 MG TAB PO SCH (08:04)
[2018-06-08 09:33] LABS: Hemoglobin 11.1 g/dL (14.0-18.0); Mean Corpuscular HGB CONC 32.8 g/dL (32.0-36.0); Mean Corpuscular Hemoglobin 37.3 pg (27.0-31.0); Mean Platelet Volume 11.8 fL (7.4-10.4); Platelet Count 62 thou/uL (130-400); RBC Distribution Width 13.5 % (11.5-14.5); Red Blood Cell (RBC) Count 2.98 mill/uL (4.70-6.10); White Blood Cell (WBC) Count 6.8 thou/uL (4.8-10.8)
[2018-06-08 09:58] LABS: Band 2 % (5-11); Burr Cells SLIGHT = 2-5 cells (100X) (0-1/hpf); Lymphocytes 24 % (21-51); MDiff Complete? YES; Macrocytosis MODERATE=16-30 cells (100X) (0-5/hpf); Monocytes 15 % (0-10); Neutrophil 58 % (42-75); Platelet Morphology Comment Appears Decreased; Polychromasia SLIGHT = 2-3 cells (100X) (0-2/hpf); Reactive Lymphocytes 1 % (0-10); Schistocytes SLIGHT = 2-5 cells (100X) (0-1/hpf)
[2018-06-08 12:34] LABS: Magnesium 1.9 mg/dL (1.6-2.6); Potassium 3.5 mmol/L (3.5-5.1)
[2018-06-08 14:42] VITALS: BP 145/88; TEMP 98.2
[2018-06-08] MEDS ORDERED: Potassium Chloride 20 MEQ TAB PO SCH (17:00)
--- NOTE | 2018-06-08 17:55 | DIS ---
DATE OF ADMISSION: 06/08/2018 DATE OF DISCHARGE: 06/08/2018 DISCHARGE DISPOSITION: Home. FOLLOWUP: Follow up with primary care physician, Dr. Stephens in 1 week. ALLERGIES: NO KNOWN DRUG ALLERGIES. DISCHARGE MEDICATIONS: 1. Tamiflu 75 mg b.i.d. for 5 more doses. 2. Levaquin 500 mg daily, #7. 3. Multivitamin, folic acid, and vitamin B12 daily. All other home medications were left unchanged. The patient was advised to hold Lipitor until 1 week. He would benefit from repeat LFTs after 1 week. BRIEF HOSPITAL COURSE: The patient is a 67-year-old male with multiple myeloma, presented to the emergency room with fever, and cough of 1 week duration. Please refer to the history and physical for further details. The patient was admitted to the hospital with a diagnosis of influenza A positive along with suspected pneumonia. He was started on broad-spectrum antibiotics that has been changed to oral. One of two blood cultures were positive for alpha strep. Dr. Downey recommended continuing Levaquin. He was started on Tamiflu on admission. Symptomatically, the patient feels much better and appears stable for discharge. He also had electrolyte abnormalities, which were replaced. Bilirubin on the day of discharge 1.5. Magnesium 1.5, this morning was 1.9. Potassium 3.0, this morning was 3.5. FINAL DIAGNOSES: 1. Systemic inflammatory response syndrome secondary to influenza A with suspected pneumonia, suspected streptococcal. 2. Streptococcal bacteremia, one of two. 3. Abnormal LFTs, probably secondary to influenza. The patient was advised to hold statins for 1 week. Repeat LFTs after 1 week is recommended. 4. Hyponatremia. 5. Hypokalemia. 6. Hypomagnesemia. 7. Dehydration. 8. Moderate protein-calorie malnutrition. 9. Macrocytic anemia secondary to relative vitamin B12 deficiency. His vitamin B12 last year was 300. 10. History of pulmonary embolism and paroxysmal atrial fibrillation, on anticoagulation. 11. Coronary artery disease, status post myocardial infarction with stent placement. 12. Hypertension. 13. Dyslipidemia. Plan of care was discussed with the patient. He stated understanding. Job ID: [id number]
== END 2018-06-08 15:02 | disposition home or self-care (01) | DRG 194 ==
LOC: ERS 11:36 → T4-B 14:57 → OBSVTOIN 06-08 07:26
PROVIDERS: ADMIT Internal Medicine; ATTEND Internal Medicine
DX: J10.08 Influenza due to other identified influenza virus with other specified pneumonia (principal); E87.1 Hypo-osmolality and hyponatremia; E44.0 Moderate protein-calorie malnutrition; C90.00 Multiple myeloma not having achieved remission; J15.4 Pneumonia due to other streptococci; E86.0 Dehydration; Z68.27 Body mass index [BMI] 27.0-27.9, adult; D53.9 Nutritional anemia, unspecified; I48.0 Paroxysmal atrial fibrillation; E78.5 Hyperlipidemia, unspecified; E87.6 Hypokalemia; E83.42 Hypomagnesemia; I10 Essential (primary) hypertension; I25.10 Atherosclerotic heart disease of native coronary artery without angina pectoris; E53.8 Deficiency of other specified B group vitamins; Z86.711 Personal history of pulmonary embolism; Z79.01 Long term (current) use of anticoagulants; Z95.5 Presence of coronary angioplasty implant and graft; I25.2 Old myocardial infarction; Z92.21 Personal history of antineoplastic chemotherapy; Z87.891 Personal history of nicotine dependence; Z79.82 Long term (current) use of aspirin; Z79.899 Other long term (current) drug therapy; Z82.49 Family history of ischemic heart disease and other diseases of the circulatory system
CPT/HCPCS: 36415; 71046; 80053; 81003; 81015; 83605; 83735; 84100; 84132; 84145; 85007; 85025; 85027; 87040; 87086; 87149; 87804; 90471; 90670; 94640; 96360; G0009; J0360; J1956; J3475; J7620; J7626

== ENCOUNTER 2018-07-24 08:49 | Emergency (ER) | payer MEDICARE, BC ==
[2018-07-24 09:56] LABS: ALT (SGPT) 38 U/L (8-55); AST (SGOT) 31 U/L (5-34); Albumin 3.6 g/dL (3.4-4.8); Alkaline Phosphatase 47 U/L (40-150); Anion Gap 17 mmol/L (10-20); BUN (Urea Nitrogen) 39 mg/dL (8.4-25.7); Bilirubin, Total 0.6 mg/dL (0.2-1.2); Calc. Creatinine Clearance 0 mL/min (70-130); Calcium 8.8 mg/dL (7.8-10.44); Carbon Dioxide 19 mmol/L (23-31); Chloride 102 mmol/L (98-107); Estimated GFR-MDRD 41; Globulin 2.3 g/dL (2.4-3.5); Glucose 84 mg/dL (80-115); Lipase 30 U/L (8-78); Potassium 3.2 mmol/L (3.5-5.1); Protein, Total 5.9 g/dL (5.8-8.1); Sodium 135 mmol/L (136-145)
[2018-07-24 10:00] LABS: Band 1 % (5-11); Burr Cells SLIGHT = 2-5 cells (100X) (0-1/hpf); Eosinophils 1 % (0-10); Lymphocytes 28 % (21-51); MDiff Complete? YES; Macrocytosis SLIGHT = 6-15 cells (100X) (0-5/hpf); Monocytes 15 % (0-10); Neutrophil 52 % (42-75); Platelet Morphology Comment Appears Decreased; Polychromasia SLIGHT = 2-3 cells (100X) (0-2/hpf); Reactive Lymphocytes 2 % (0-10)
[2018-07-24 10:03] LABS: Hemoglobin 13.5 g/dL (14.0-18.0); Mean Corpuscular Hemoglobin 36.6 pg (27.0-31.0); Ovalocytes SLIGHT = 2-5 cells (100X) (0-1/hpf); Platelet Count 113 thou/uL (130-400); RBC Distribution Width 12.9 % (11.5-14.5); Red Blood Cell (RBC) Count 3.68 mill/uL (4.70-6.10)
== END 2018-07-24 11:22 | disposition home or self-care (01) ==
LOC: SCSER 08:49
DX: E86.0 Dehydration (principal); R19.7 Diarrhea, unspecified; I10 Essential (primary) hypertension
CPT/HCPCS: 80053; 83690; 85025; 96360; 96372; J0500

== ENCOUNTER 2019-06-07 18:02 | Inpatient (IN) | payer MEDICARE, BC ==
[~2019-06-07 18:02] MED LIST changes: -ISOVUE-370 76%-LOCM 1 ML ONE; +Iopamidol-370 76% 500 ML 1 ML ONE
[2019-06-07 18:29] LABS: #Eosinphils 0.7 thou/uL (0.0-0.7); #Monocytes 0.7 thou/uL (0.11-0.59); #Neutrophils 3.1 thou/uL (1.40-6.50); %Basophils 0.2 % (0.0-1.0); %Eosinophils 9.7 % (0.0-10.0); %Lymphocytes 39.7 % (21.0-51.0); %Monocytes 9.4 % (0.0-10.0); %Neutrophils 41.1 % (42.0-75.0); Hemoglobin 11.8 g/dL (14.0-18.0); Mean Corpuscular HGB CONC 33.2 g/dL (32.0-36.0); Mean Platelet Volume 9.6 fL (7.4-10.4); Platelet Count 182 thou/uL (130-400); RBC Distribution Width 14.8 % (11.5-14.5); Red Blood Cell (RBC) Count 3.37 mill/uL (4.70-6.10); White Blood Cell (WBC) Count 7.6 thou/uL (4.8-10.8)
[2019-06-07] MEDS ORDERED: Acetaminophen 500 MG TAB ONE (18:29)
--- NOTE | 2019-06-07 18:46 | RAD ---
XR Chest 1 View Portable History: Chest pain Comparison: Radiograph December 24, 2018 Findings: Port catheter tip projects over the inferior SVC. Lungs are hypoinflated. Elevation left he midiaphragm. Mild blunting right lateral costophrenic sulcus. Pulmonary arteries are dilated. No pneumothorax. No acute osseous abnormality. Impression: 1. Mild blunting right lateral costophrenic sulcus felt to be due to leftward patient rotation less l ikely a small effusion. 2. Lung hypoinflation with bibasilar atelectatic changes. 3. Dilated pulmonary arteries suggesting pulmonary hypertension.
[2019-06-07] MEDS ORDERED: Cefepime 2 GM VIAL ONE (18:47)
[2019-06-07] MEDS ORDERED: Sodium Chloride 0.9% 100 ML ONE (18:47)
[2019-06-07 18:54] LABS: ALT (SGPT) 25 U/L (8-55); AST (SGOT) 16 U/L (5-34); Albumin 3.3 g/dL (3.4-4.8); Alkaline Phosphatase 77 U/L (40-110); Anion Gap 9 mmol/L (10-20); BUN (Urea Nitrogen) 16 mg/dL (8.4-25.7); Bilirubin, Total 1.1 mg/dL (0.2-1.2); Calc. Creatinine Clearance 0 mL/min (70-130); Calcium 8.2 mg/dL (7.8-10.44); Carbon Dioxide 29 mmol/L (23-31); Chloride 100 mmol/L (98-107); Estimated GFR-MDRD 57; Glucose 92 mg/dL (80-115); Potassium 3.3 mmol/L (3.5-5.1); Protein, Total 5.3 g/dL (5.8-8.1); Sodium 135 mmol/L (136-145)
[2019-06-07 18:57] LABS: Helmet Cells SLIGHT = 2-5 cells (100X) (0-1/hpf); MDiff Complete? YES; Macrocytosis SLIGHT = 6-15 cells (100X) (0-5/hpf); Platelet Morphology Comment Appears Adequate; Polychromasia SLIGHT = 2-3 cells (100X) (0-2/hpf); Schistocytes SLIGHT = 2-5 cells (100X) (0-1/hpf); Target Cells SLIGHT = 2-5 cells (100X) (0-1/hpf)
[2019-06-07 19:13] LABS: Magnesium 1.5 mg/dL (1.6-2.6)
[2019-06-07 19:13] LABS: CKMB 1.3 ng/mL (0-6.6)
[2019-06-07] MEDS ORDERED: Potassium Chloride 40 MEQ in Sodium Chloride 0.9% 250 ML 250 ML IVPB SCH (20:45)
--- NOTE | 2019-06-07 20:54 | CT ---
CTA Angio Chest W WO Con History: Chest pain Comparison: Radiograph same day Findings: CT angiogram chest performed after the intravenous ministration of contrast. 3-D rendering was provided. Mild dilatation of the pulmonary arteries. No proximal segmental pulmonary arterial filling defect. No specific pericardial effusion. Incidental note is made of thickening and stranding along the splen ic flexure of the colon suggesting colitis, incompletely evaluated. There is also edema and thickening of the gastric folds. No normal spleen is appreciated. Numerous hypodensities of the liver are incompletely evaluated. Mild atelectatic changes lung bases. Possible faint consolidation medial basal left lower lobe with b ronchial wall thickening. Multiple lytic foci within the axial skeleton. No thoracic spine compression fracture. No acute displ aced rib fracture. Healing right anterior third, fourth, fifth rib fractures as well as lateral right sixth and seventh rib fractures as well as eighth and ninth and 10th rib fractures. Impression: 1. No pulmonary embolism. 2. Incompletely evaluated high-grade thickening and edema along the splenic flexure of the colon coul d be infectious or inflammatory and even posttreatment change given the patient is currently on chemotherapy. 3. Mild right lower lobe bronchitis and faint bronchopneumonia. 4. Healing right-sided rib fractures. 5. Findings of multiple myeloma.
[2019-06-07] MEDS ORDERED: Oseltamivir 75 MG CAP PO SCH (22:15)
[2019-06-07] MEDS ORDERED: Magnesium 2 GM/50 ML BAG (IN WATER) ONE (22:42)
--- NOTE | 2019-06-07 23:29 | PDOC.EVN ---
Event Note - Event Note Event Note: [id number] HP
[2019-06-07 23:45] LABS: Bacteria/HPF None Seen HPF (None Seen); Bilirubin Negative (Negative); Blood, Urine Negative (Negative); Clarity Clear (Clear); Glucose, Urine (Dipstick) Normal (Negative); Leukocyte Negative Leu/uL (Negative); Nitrite Negative (Negative); Protein, Urine (Dipstick) 50 mg/dL (Neg-Trace); RBC/HPF 0-3 HPF (0-3); Squamous Epithelial None Seen HPF (0-3); WBC/HPF 0-3 HPF (0-3)
[2019-06-08] MEDS: Sodium Chloride 0.9% 1,000 ML IV SCH ×3 (00:50→12:13)
[2019-06-08] MEDS: Acetaminophen 325 MG TAB PO PRN ×3 (00:52→19:52)
[2019-06-08 01:08] VITALS: BMI 25.0
--- NOTE | 2019-06-08 02:15 | HP ---
CHIEF COMPLAINT: Weakness. HISTORY OF PRESENT ILLNESS: Mr. Vora is a 68-year-old male with past medical history of multiple myeloma, on chemotherapy, congestive heart failure, coronary artery disease, cardiac stents, hypertension, among others, presented to the emergency room with weakness, lightheadedness and dizziness. The symptoms got worse this morning. No aggravating or relieving factors. Denies chest pain, dysuria, or shortness of breath. Workup in the emergency room, the patient appears dehydrated. Magnesium is 1.5, potassium is 3.3, WBC count is 7.6, hemoglobin 11.8, platelets 182. CTA of the chest was negative for pulmonary embolism. It did show right lower lobe bronchitis and faint bronchopneumonia. Septic workup done in the ED. The patient was started on IV antibiotics. The patient also had a slight increase in his troponin of 0.05. The patient is denying chest pain. Also, the patient was tested positive for influenza A. The patient is being admitted to the hospital for further management. PAST MEDICAL HISTORY: 1. Multiple myeloma. 2. Hypertension. 3. Coronary artery disease. 4. Congestive heart failure. 5. Pancreatitis. PAST SURGICAL HISTORY: 1. Appendectomy. 2. Cholecystectomy. 3. Splenectomy. 4. Part of the pancreas removed. 5. Hernia repair. SOCIAL HISTORY: Denies alcohol use. Former smoker. FAMILY HISTORY: Reviewed and noncontributory. HOME MEDICATIONS: Please see home medication reconciliation form for updated medications. ALLERGIES: NO KNOWN ALLERGIES. REVIEW OF SYSTEMS: Review of 14 systems negative except what is mentioned in the history of present illness. PHYSICAL EXAMINATION: GENERAL: The patient is lethargic, but able to answer questions. VITAL SIGNS: Blood pressure 104/66, pulse is 63, respiratory rate is 18, temperature 98.6, pulse oximetry 99% on room air. HEAD: Normocephalic, atraumatic. NECK: Supple. CHEST: Fair bilateral air entry. HEART: S1, S2, regular. ABDOMEN: Soft, nontender. Bowel sounds present. NEUROLOGIC: Awake, alert, moves extremities. PSYCHIATRIC: Unable to assess. EXTREMITIES: No clubbing or cyanosis. LABORATORY DATA: Labs as mentioned above in the history of present illness. CTA of the chest as mentioned above in the history of present illness. ASSESSMENT: 1. Pneumonia in an immunocompromised patient. 2. Influenza A. 3. Hypokalemia. 4. Hypomagnesemia. 5. Dehydration. 6. Multiple myeloma, on chemotherapy, immunocompromised. 7. Congestive heart failure. 8. Coronary artery disease. PLAN: 1. Admit. 2. Septic workup including blood cultures. 3. IV antibiotics. Continue with IV vancomycin and cefepime. 4. The patient was given Tamiflu in the ED. 5. IV fluid hydration, reassess in a.m. 6. Reconcile home medications. 7. DVT prophylaxis as appropriate. 8. Droplet isolation. 9. Expected length of stay 2 midnights or more. Job ID: [id number]
[2019-06-08 04:43] LABS: Hemoglobin 10.2 g/dL (14.0-18.0); Mean Corpuscular HGB CONC 32.9 g/dL (32.0-36.0); Mean Corpuscular Hemoglobin 34.8 pg (27.0-31.0); Mean Platelet Volume 9.7 fL (7.4-10.4); Platelet Count 171 thou/uL (130-400); RBC Distribution Width 14.9 % (11.5-14.5); Red Blood Cell (RBC) Count 2.93 mill/uL (4.70-6.10); White Blood Cell (WBC) Count 6.9 thou/uL (4.8-10.8)
[2019-06-08 05:12] LABS: ALT (SGPT) 20 U/L (8-55); AST (SGOT) 13 U/L (5-34); Albumin 2.8 g/dL (3.4-4.8); Alkaline Phosphatase 63 U/L (40-110); Anion Gap 9 mmol/L (10-20); BUN (Urea Nitrogen) 16 mg/dL (8.4-25.7); Bilirubin, Total 1.2 mg/dL (0.2-1.2); Calc. Creatinine Clearance 71 mL/min (70-130); Calcium 7.8 mg/dL (7.8-10.44); Carbon Dioxide 27 mmol/L (23-31); Chloride 103 mmol/L (98-107); Estimated GFR-MDRD 62; Globulin 2.3 g/dL (2.4-3.5); Glucose 96 mg/dL (80-115); Potassium 3.5 mmol/L (3.5-5.1); Protein, Total 5.1 g/dL (5.8-8.1); Sodium 135 mmol/L (136-145)
[2019-06-08 05:14] LABS: Band 9 % (5-11); Eosinophils 10 % (0-10); Lymphocytes 27 % (21-51); MDiff Complete? YES; Monocytes 5 % (0-10); Neutrophil 48 % (42-75); Reactive Lymphocytes 1 % (0-10)
[2019-06-08] MEDS: Saccharomyces boulardii 250 MG CAP PO SCH (08:56)
[2019-06-08] MEDS: Oseltamivir 75 MG CAP PO SCH ×2 (08:56→19:52)
[2019-06-08] MEDS: Enoxaparin Sodium 40 MG/0.4 ML SYRINGE SC SCH (08:56)
[2019-06-08] MEDS: hydrALAZINE 20 MG/ML VIAL SLOW IVP PRN ×2 (09:00→19:54)
[2019-06-08] MEDS: Vancomycin HCl 1 GM in Premix Bag 1 BAG IVPB SCH ×2 (09:10→19:52)
[2019-06-08] MEDS: Cefepime 2 GM in Sodium Chloride 0.9% 100 ML IVPB SCH ×2 (09:11→19:51)
--- NOTE | 2019-06-08 17:06 | PDOC.HOSPP ---
- Subjective Encounter Date: 06/08/19 Encounter Time: 09:00 Subjective: pt up in bed still feels weak all over. - Objective Vital Signs & Weight: Vital Signs (12 hours) Temp Pulse Resp BP BP Pulse Ox 06/08/19 16:20 98.3 F 72 20 168/79 H 95 06/08/19 12:14 100 F H 79 20 138/86 95 06/08/19 09:00 65 187/60 H 06/08/19 08:30 100.1 F H 65 20 192/90 H 95 Weight Weight 189 lb 6.4 oz Result Diagrams: 06/08/19 04:27 06/08/19 04:27 Hospitalist ROS - Review of Systems Respiratory: denies: cough, dry, shortness of breath, hemoptysis, SOB with excertion, pleuritic pain, sputum, wheezing, other Cardiovascular: denies: chest pain, palpitations, orthopnea, paroxysmal noc. dyspnea, edema, light headedness, other Gastrointestinal: denies: nausea, vomiting, abdominal pain, diarrhea, constipation, melena, hematochezia, other Genitourinary: denies: dysuria, frequency, incontinence, hematuria, retention, other - Medication Medications: Active Medications Generic Name Dose Route Start Last Admin Trade Name Freq PRN Reason Stop Dose Admin Acetaminophen 650 mg 06/07/19 22:38 06/08/19 08:56 Tylenol PO 650 mg Q4H PRN Administration Headache/Fever/Mild Pain (1-3) Enoxaparin Sodium 40 mg 06/08/19 09:00 06/08/19 08:56 Lovenox SC 40 mg 0900 VIJAY Administration Hydralazine HCl 5 mg 06/08/19 08:24 06/08/19 09:00 Apresoline SLOW IVP 5 mg Q4H PRN Administration Hypertension Cefepime HCl 2 gm/ Sodium 100 mls @ 200 mls/hr 06/08/19 08:00 06/08/19 09:11 Chloride IVPB 100 mls 0800,2000 VIJAY Administration Vancomycin HCl 1 gm/ Device 200 mls @ 200 mls/hr 06/08/19 09:00 06/08/19 09: 10 IVPB 200 mls Q12HR VIJAY Administration Sodium Chloride 1,000 mls @ 75 mls/hr 06/07/19 22:45 06/08/19 12:13 Normal Saline 0.9% IV Not Given .[id number] VIJAY Oseltamivir Phosphate 75 mg 06/08/19 09:00 06/08/19 08:56 Tamiflu PO 06/12/19 21:01 75 mg BID VIJAY Administration Saccharomyces Boulardii 250 mg 06/08/19 09:00 06/08/19 08:56 Florastor PO 250 mg DAILY VIJAY Administration Sodium Chloride 10 ml 06/08/19 09:00 06/08/19 09:00 Flush - Normal Saline IVF 10 ml Q12HR VIJAY Administration - Exam Neck: negative: supple, symmetric, no JVD, no thyromegaly, no lymphadenopathy, no carotid bruit, JVD Heart: negative: RRR, no murmur, no gallops, no rubs, normal peripheral pulses, irregular, diminshed peripheral pulses, murmur present, II/IV, III/IV Respiratory: negative: CTAB, no wheezes, no rales, no ronchi, normal chest expansion, no tachypnea, normal percussion, rales, rhonchi, tachypneic, wheezes Gastrointestinal: negative: soft, non-tender, non-distended, normal bowel sounds , no palpable masses, no hepatomegaly, no splenomegaly, no bruit, no guarding, no rigidity, tender to palpation, distended, diminished bowl sounds, voluntary guarding Hosp A/P (1) Influenza A Code(s): J10.1 - FLU DUE TO OTH IDENT INFLUENZA VIRUS W OTH RESP MANIFEST Status: Acute (2) Hypertension Code(s): I10 - ESSENTIAL (PRIMARY) HYPERTENSION Status: Acute Qualifiers: (3) Multiple myeloma Code(s): C90.00 - MULTIPLE MYELOMA NOT HAVING ACHIEVED REMISSION Status: Acute Qualifiers: (4) CAD (coronary artery disease) Code(s): I25.10 - ATHSCL HEART DISEASE OF [place] CORONARY ARTERY W/O ANG PCTRS Status: Chronic Qualifiers: - Plan will continue iv abx for now. pt is on revlimid but he is off this med for now. He is on tamiflu. will get PT to see pt since states that he has been unsteady.
[2019-06-08] MEDS ORDERED: Non-Formulary Item 1 EACH (Esomeprazole Magnesium [Nexium] 40 MG) PO PRN (17:11)
[2019-06-08] MEDS: Carvedilol 25 MG TAB PO SCH (19:52)
[2019-06-08] MEDS: Atorvastatin Calcium 20 MG TAB PO SCH (19:52)
[2019-06-09] MEDS: Sodium Chloride 0.9% 1,000 ML IV SCH ×2 (05:33→15:51)
[2019-06-09] MEDS: Cefepime 2 GM in Sodium Chloride 0.9% 100 ML IVPB SCH ×2 (08:51→20:06)
[2019-06-09] MEDS: Citalopram 10 MG TAB PO SCH (08:52)
[2019-06-09] MEDS: Oseltamivir 75 MG CAP PO SCH ×2 (08:52→20:06)
[2019-06-09] MEDS: Enoxaparin Sodium 40 MG/0.4 ML SYRINGE SC SCH (08:52)
[2019-06-09] MEDS: Carvedilol 25 MG TAB PO SCH ×2 (08:52→20:06)
[2019-06-09] MEDS: Aspirin Chewable 81 MG TAB PO SCH (08:52)
[2019-06-09] MEDS: Saccharomyces boulardii 250 MG CAP PO SCH (08:52)
[2019-06-09 08:54] LABS: Vancomycin, Trough 13.3 ug/mL
[2019-06-09] MEDS: Vancomycin HCl 1 GM in Premix Bag 1 BAG IVPB SCH (09:49)
--- NOTE | 2019-06-09 13:46 | PDOC.HOSPP ---
- Subjective Encounter Date: 06/09/19 Encounter Time: 10:15 Subjective: pt up in bed feels well. - Objective Vital Signs & Weight: Vital Signs (12 hours) Temp Pulse Resp BP Pulse Ox 06/09/19 11:30 98.5 F 57 L 18 135/79 98 06/09/19 09:55 100/64 06/09/19 08:12 98.4 F 60 18 184/89 H 100 06/09/19 03:50 98.4 F 71 18 178/89 H 95 Weight Weight 189 lb 6.4 oz I&O: 06/08/19 06/09/19 06/10/19 06:59 06:59 06:59 Intake Total 2100 Output Total 1850 Balance 250 Result Diagrams: 06/08/19 04:27 06/08/19 04:27 Hospitalist ROS - Review of Systems Cardiovascular: denies: chest pain, palpitations, orthopnea, paroxysmal noc. dyspnea, edema, light headedness, other Gastrointestinal: denies: nausea, vomiting, abdominal pain, diarrhea, constipation, melena, hematochezia, other Genitourinary: denies: dysuria, frequency, incontinence, hematuria, retention, other Musculoskeletal: denies: neck pain, shoulder pain, arm pain, back pain, hand pain, leg pain, foot pain, other - Medication Medications: Active Medications Generic Name Dose Route Start Last Admin Trade Name Freq PRN Reason Stop Dose Admin Acetaminophen 650 mg 06/07/19 22:38 06/08/19 19:52 Tylenol PO 650 mg Q4H PRN Administration Headache/Fever/Mild Pain (1-3) Aspirin 81 mg 06/09/19 09:00 06/09/19 08:52 Aspirin Chewable PO 81 mg DAILY VIJAY Administration Atorvastatin Calcium 40 mg 06/08/19 21:00 06/08/19 19:52 Lipitor PO 40 mg QPM VIJAY Administration Carvedilol 25 mg 06/08/19 21:00 06/09/19 08:52 Coreg PO 25 mg BID VIJAY Administration Citalopram Hydrobromide 10 mg 06/09/19 09:00 06/09/19 08:52 Celexa PO 10 mg DAILY VIJAY Administration Enoxaparin Sodium 40 mg 06/08/19 09:00 06/09/19 08:52 Lovenox SC 40 mg 0900 VIJAY Administration Hydralazine HCl 5 mg 06/08/19 08:24 06/08/19 19:54 Apresoline SLOW IVP 5 mg Q4H PRN Administration Hypertension Cefepime HCl 2 gm/ Sodium 100 mls @ 200 mls/hr 06/08/19 08:00 06/09/19 08:51 Chloride IVPB 100 mls 0800,2000 VIJAY Administration Sodium Chloride 1,000 mls @ 75 mls/hr 06/07/19 22:45 06/09/19 05:33 Normal Saline 0.9% IV 1,000 mls .[id number] VIJAY Administration Oseltamivir Phosphate 75 mg 06/08/19 09:00 06/09/19 08:52 Tamiflu PO 06/12/19 21:01 75 mg BID VIJAY Administration Saccharomyces Boulardii 250 mg 06/08/19 09:00 06/09/19 08:52 Florastor PO 250 mg DAILY VIJAY Administration Sodium Chloride 10 ml 06/08/19 09:00 06/09/19 08:52 Flush - Normal Saline IVF 10 ml Q12HR VIJAY Administration - Exam Neck: negative: supple, symmetric, no JVD, no thyromegaly, no lymphadenopathy, no carotid bruit, JVD Heart: negative: RRR, no murmur, no gallops, no rubs, normal peripheral pulses, irregular, diminshed peripheral pulses, murmur present, II/IV, III/IV Respiratory: negative: CTAB, no wheezes, no rales, no ronchi, normal chest expansion, no tachypnea, normal percussion, rales, rhonchi, tachypneic, wheezes Gastrointestinal: negative: soft, non-tender, non-distended, normal bowel sounds , no palpable masses, no hepatomegaly, no splenomegaly, no bruit, no guarding, no rigidity, tender to palpation, distended, diminished bowl sounds, voluntary guarding Hosp A/P (1) Influenza A Code(s): J10.1 - FLU DUE TO OTH IDENT INFLUENZA VIRUS W OTH RESP MANIFEST Status: Acute (2) Hypertension Code(s): I10 - ESSENTIAL (PRIMARY) HYPERTENSION Status: Acute Qualifiers: (3) Multiple myeloma Code(s): C90.00 - MULTIPLE MYELOMA NOT HAVING ACHIEVED REMISSION Status: Acute Qualifiers: (4) CAD (coronary artery disease) Code(s): I25.10 - ATHSCL HEART DISEASE OF [place] CORONARY ARTERY W/O ANG PCTRS Status: Chronic Qualifiers: (5) Pneumonia Code(s): J18.9 - PNEUMONIA, UNSPECIFIED ORGANISM Status: Acute - Plan will continue iv abx for now. pt is on revlimid but he is off this med for now. He is on tamiflu. will get PT to see pt since states that he has been unsteady. / pt appear well, will stop vanco and continue cefepime. if he continues to improve in am will discharge him home.
[2019-06-09] MEDS: Acetaminophen 325 MG TAB PO PRN (15:54)
[2019-06-09] MEDS: Atorvastatin Calcium 20 MG TAB PO SCH (20:06)
[2019-06-10 08:08] VITALS: TEMP 98.4
[2019-06-10] MEDS: Cefepime 2 GM in Sodium Chloride 0.9% 100 ML IVPB SCH (08:30)
[2019-06-10] MEDS: Citalopram 10 MG TAB PO SCH (08:31)
[2019-06-10] MEDS: Saccharomyces boulardii 250 MG CAP PO SCH (08:31)
[2019-06-10] MEDS: Oseltamivir 75 MG CAP PO SCH (08:31)
[2019-06-10] MEDS: Aspirin Chewable 81 MG TAB PO SCH (08:31)
[2019-06-10] MEDS: Carvedilol 25 MG TAB PO SCH (08:31)
[2019-06-10] MEDS: Enoxaparin Sodium 40 MG/0.4 ML SYRINGE SC SCH (08:31)
[2019-06-10] MEDS ORDERED: Potassium Chloride 20 MEQ TAB PO SCH (09:00)
--- NOTE | 2019-06-10 09:46 | DIS ---
DATE OF ADMISSION: 06/07/2019 DATE OF DISCHARGE: 06/10/2019 PRIMARY CARE PROVIDER: Richardson Stephens MD DISCHARGE DIAGNOSES: 1. Influenza A infection. 2. Right lower lobe pneumonia, suspected to be secondary to gram-negative organisms. 3. Hypokalemia. 4. Hyponatremia. 5. Hypomagnesemia. 6. Hypertensive urgency. CONDITION OF PATIENT ON THE DAY OF DISCHARGE: Stable. I assessed Mr. Vora on the day of discharge. He denies any chest pain or shortness of breath. Vital signs are stable. S1 and S2 are heard, regular. Lungs are clear to auscultation bilaterally. POST ACUTE CARE FOLLOWUP: Primary care provider in 3 days. DISCHARGE MEDICATIONS: New medications: 1. Omnicef 300 mg 2 times a day for 1 week. 2. Tamiflu 75 mg 2 times a day for 5 more doses. Otherwise, the rest of his home medications were continued and include 1. Vitamin D3 50,000 units every week. 2. Aspirin 81 mg daily. 3. Lipitor 40 mg in the evening. 4. Coreg 25 mg 2 times a day. 5. Celexa 10 mg daily. 6. Dexamethasone as directed. 7. Valacyclovir 500 mg daily. 8. Esomeprazole 40 mg daily. 9. Zofran 8 mg 3 times a day as needed. HOSPITAL COURSE: Mr. Vora is a pleasant 68-year-old gentleman with a history of immunocompromised secondary to chemotherapy, who was admitted to the hospital on June 07, 2019, for influenza A infection and right lower lobe bronchopneumonia. He improved with Tamiflu and intravenous antibiotics. He is being stepped down to oral antibiotics prior to discharge home. He was evaluated by Physical Therapy Service and has been advised a rolling walker. Many thanks for allowing me to participate in your patient's care. Please feel free to contact me with any questions or concerns. ACTIVITY: As tolerated. DIET: Heart-healthy diet. DISCHARGE DESTINATION: Home. TIME SPENT: Total amount of time spent coordinating this discharge: 32 minutes. Job ID: [id number] MTDD
[2019-06-10 11:34] VITALS: BP 160/83
[2019-06-10] MEDS ORDERED: Cefdinir 300 MG CAP PO SCH (21:00)
--- NOTE | 2019-06-11 12:01 | PDOC.EVN ---
Event Note - Event Note Event Note: Late entry note: Pt seen by PT, pt has unsteady gait and needs needs rolling walker for use at home. Prescription fiven to the patient for rolling walker.
--- NOTE | 2019-06-12 22:00 | PQF ---
SAP Tester Wafer Substrate Crystal Reports Winform Viewer MARGA TEJADA FABIANA GUIDRY [id number] [id number] CLINICAL DOCUMENTATION CLARIFICATION FORM: POST DISCHARGE Addendum to original discharge summary date: ____ Late entry note date: __ DATE: 06/12/19 ATTN: Fabiana Rios Please exercise your independent, professional judgment in responding to the clarification form. Clinical indicators are provided on the bottom of this form for your review Can you please further clarify the diagnosis of the patient based on the clinical indicators below? Please check appropriate box(es): [ ] Sepsis due to: (Pna, UTI, gangrenous gall bladder, etc.) [ X ] Localized infection without sepsis [ ] Other diagnosis [ ] Unable to determine In addition, please specify: Present on Admission (POA): [ X ] Yes [ ] No [ ] Unable to determine For continuity of documentation, please document condition throughout progress notes and discharge summary. Thank You. CLINICAL INDICATORS - SIGNS / SYMPTOMS / LABS H and P pg.1- weakness H and P pg.1- right lower lobe bronchitis and faint bronchopneumonia H and P pg.1- Septic work up done in ED H and P pg.2- VS BP 104/66, pulse is 63, RR is 18, temp 98.6 Ds pg.1- right lower lobe pneumonia suspected to be secondary to gram negative organism RISK FACTORS 68 years old- H and P pg.1 Multiple myeloma- H and P pg.1 Hypertension- H and P pg.1 CAD_ H and P pg.1 CHF- H and P pg.1 Pneumonia- H and P pg.2 Influenza A- H and P pg.2 TREATMENTS: Septic work up- H and P pg.2 IV antibiotics- MAR Chest X ray 06/07 Chest/thorax CTA- 06/07 IV fluids- MAR Tamiflu- MAR (This form is maintained as a part of the permanent medical record) 2014 [employer] All Rights Reserved Nathanael [email or web address]
== END 2019-06-10 11:38 | disposition home or self-care (01) | DRG 178 ==
LOC: ERS 18:02 → 2NO 23:28
PROVIDERS: ADMIT Internal Medicine; ATTEND Internal Medicine
DX: J10.08 Influenza due to other identified influenza virus with other specified pneumonia (principal); C90.00 Multiple myeloma not having achieved remission; J15.6 Pneumonia due to other Gram-negative bacteria; E87.1 Hypo-osmolality and hyponatremia; I11.0 Hypertensive heart disease with heart failure; I16.0 Hypertensive urgency; I50.9 Heart failure, unspecified; I25.10 Atherosclerotic heart disease of native coronary artery without angina pectoris; E87.6 Hypokalemia; E83.42 Hypomagnesemia; E86.0 Dehydration; Z90.49 Acquired absence of other specified parts of digestive tract; Z87.891 Personal history of nicotine dependence; I25.2 Old myocardial infarction; Z79.01 Long term (current) use of anticoagulants; Z79.82 Long term (current) use of aspirin; Z79.899 Other long term (current) drug therapy; Z95.5 Presence of coronary angioplasty implant and graft; R26.81 Unsteadiness on feet
CPT/HCPCS: 36415; 71045; 71275; 80053; 80202; 81003; 81015; 82550; 82553; 83605; 83735; 84484; 85007; 85025; 85027; 87040; 87804; 93005; 96365; 96366; 96367; 96368; J0360; J0692; J1650; J3370; J3475; J3480; J3490; J7050; Q9967

== ENCOUNTER 2019-12-22 08:32 | Emergency (ER) | payer MEDICARE, BC ==
[2019-12-22] MEDS ORDERED: Adacel (T-DAP) 0.5 ML SYRINGE ONE (08:56)
--- NOTE | 2019-12-22 09:25 | CT ---
CT BRAIN NONCONTRAST: DATE: 12/22/2019 HISTORY: 69-year-old male status post acute head trauma from fall FINDINGS: There is no evidence of acute intra-axial or extra-axial hemorrhage. There is no midline shift or any other mass effect. There is no extra-axial fluid collection. There is no evidence of obstructive hydrocephalus. Calvarium is intact. IMPRESSION: 1. No acute intracranial findings. 2. Right supraorbital and periorbital acute, traumatic superficial soft tissue hematoma.
--- NOTE | 2019-12-22 09:27 | CT ---
CT CERVICAL SPINE NONCONTRAST: DATE: 12/22/2019 HISTORY: cervical trauma FINDINGS: There are no jumped or perched facets. There is no evidence of acute fracture. The vertebral body hei ghts are maintained. There is no prevertebral soft tissue swelling. There are degenerative disc changes and facet osteoarthrosis. IMPRESSION: 1) Cervical spondylosis. 2) no evidence of acute fracture or acute traumatic subluxation.
== END 2019-12-22 09:45 | disposition home or self-care (01) ==
LOC: ERS 08:32
DX: S40.011A Contusion of right shoulder, initial encounter (principal); S00.31XA Abrasion of nose, initial encounter; S00.211A Abrasion of right eyelid and periocular area, initial encounter; S60.512A Abrasion of left hand, initial encounter; S60.511A Abrasion of right hand, initial encounter; I11.0 Hypertensive heart disease with heart failure; I50.9 Heart failure, unspecified; I25.2 Old myocardial infarction; Z87.891 Personal history of nicotine dependence; Z79.01 Long term (current) use of anticoagulants; Z79.82 Long term (current) use of aspirin; Z79.899 Other long term (current) drug therapy; W18.09XA Striking against other object with subsequent fall, initial encounter
CPT/HCPCS: 70450; 72125; 90471; 90715

== ENCOUNTER 2020-01-02 18:52 | Inpatient (IN) | payer MEDICARE, BC ==
--- NOTE | 2020-01-02 19:34 | RAD ---
Exam: Chest one view HISTORY:Fall. Pain. Injury. Comparison: 06/07/2019 FINDINGS: Cardiac silhouette:Stable cardiac silhouette Lines and tubes: Stable left-sided Mediport. Aorta: Atherosclerosis Pulmonary vessels: Normal Costophrenic angles: Clear LUNGS: Chronic lung parenchymal changes. Possible left lower lobe infiltrate. Pneumothorax: None Osseous abnormalities: Old right rib fractures. IMPRESSION: 1. Atherosclerosis 2. Possible left lower lobe infiltrate.
[2020-01-02 19:43] LABS: #Eosinphils 0.4 thou/uL (0.0-0.7); #Lymphocytes 3.4 thou/uL (1.20-3.40); #Monocytes 1.9 thou/uL (0.11-0.59); #Neutrophils 7.8 thou/uL (1.40-6.50); %Basophils 0.2 % (0.0-1.0); %Eosinophils 3.3 % (0.0-10.0); %Lymphocytes 24.9 % (21.0-51.0); %Monocytes 13.9 % (0.0-10.0); %Neutrophils 57.7 % (42.0-75.0); Hemoglobin 11.3 g/dL (14.0-18.0); Mean Corpuscular HGB CONC 33.8 g/dL (32.0-36.0); Mean Corpuscular Hemoglobin 36.5 pg (27.0-31.0); Mean Platelet Volume 10.5 fL (7.4-10.4); Platelet Count 199 thou/uL (130-400); RBC Distribution Width 16.4 % (11.5-14.5); Red Blood Cell (RBC) Count 3.09 mill/uL (4.70-6.10); White Blood Cell (WBC) Count 13.6 thou/uL (4.8-10.8)
--- NOTE | 2020-01-02 19:57 | CT ---
Exam: Head CT without contrast HISTORY: Fall. Pain. Injury. COMPARISON: 12/22/2019 FINDINGS: Hemorrhage: No intraparenchymal hemorrhage or extra-axial hematoma. Brain parenchyma: Cortical vickers-white matter differentiation is preserved. No mass effect or midline shift. Basilar cisterns are patent. Ventricular system: Ventricles and sulci are patent and symmetric. Calvarium: Intact. Scalp: Redemonstration of a right frontal scalp hematoma. Sinuses and mastoid air cells: Adequate aeration. IMPRESSION: 1. No intracranial posttraumatic sequelae 2. No significant interval change.
[2020-01-02 20:00] LABS: ALT (SGPT) 52 U/L (8-55); AST (SGOT) 26 U/L (5-34); Albumin 3.6 g/dL (3.4-4.8); Alkaline Phosphatase 87 U/L (40-110); Anion Gap 16 mmol/L (10-20); BUN (Urea Nitrogen) 25 mg/dL (8.4-25.7); Bilirubin, Total 1.1 mg/dL (0.2-1.2); Calc. Creatinine Clearance 0 mL/min (70-130); Calcium 8.6 mg/dL (7.8-10.44); Carbon Dioxide 22 mmol/L (23-31); Chloride 100 mmol/L (98-107); Estimated GFR-MDRD 57; Globulin 2.5 g/dL (2.4-3.5); Glucose 143 mg/dL (83-110); Protein, Total 6.1 g/dL (5.8-8.1); Sodium 135 mmol/L (136-145)
--- NOTE | 2020-01-02 20:00 | CT ---
Exam: CT cervical spine without contrast HISTORY: Trauma. Pain. COMPARISON: 12/22/2019 FINDINGS: No craniocervical dissociation. Appropriate alignment of the lateral masses of C1 and C2. Intact odon toid process Appropriate alignment of the facets. Stable anterolisthesis of C4 upon C5. Soft tissue neck structures: No mass, lymphadenopathy or hematoma. No prevertebral soft tissue swelli ng. Upper mediastinum and lung apices: Unremarkable Central spinal canal: There are varying degrees of central canal stenosis and neural foraminal narrow ing on the basis of degenerative change. Redemonstration of moderate central canal stenosis at C6-C7 due to a discussed by complex with central herniation. Vertebral bodies: Cervical spine vertebral body height is maintained. No fracture. Multiple lytic les ions are noted in the mid to lower cervical spine and upper thoracic spine. IMPRESSION: 1. No fracture 2. Stable degenerative changes of the cervical spine. 3. Stable lytic lesions in the visualized mid to lower cervical spine and upper thoracic spine.
[2020-01-02 20:01] LABS: Bite Cells SLIGHT = 2-5 cells (100X) (0-1/hpf); MDiff Complete? YES; Macrocytosis SLIGHT = 6-15 cells (100X) (0-5/hpf); Platelet Morphology Comment Appears Adequate; Polychromasia MODERATE = 3-4 cells (100X) (0-2/hpf); Schistocytes SLIGHT = 2-5 cells (100X) (0-1/hpf); Target Cells SLIGHT = 2-5 cells (100X) (0-1/hpf); Tear Drops SLIGHT = 2-5 cells (100X) (0-1/hpf)
[2020-01-02] MEDS ORDERED: Potassium Chloride 20 MEQ TAB ONE (20:22)
[2020-01-02] MEDS ORDERED: Diltiazem 125 MG/25 ML ONE (20:43)
[2020-01-02 21:12] LABS: INR-International Normal Ratio 1.1; PTT 27.4 sec (22.9-36.1); Prothrombin Time 14.1 sec (12.0-14.7)
[2020-01-02] MEDS ORDERED: Acetaminophen 500 MG TAB ONE (21:24)
[2020-01-02] MEDS ORDERED: Cefepime 2 GM VIAL ONE (21:24)
[2020-01-02 21:45] LABS: Bacteria/HPF None Seen HPF (None Seen); Bilirubin Negative (Negative); Blood, Urine Trace (Negative); Clarity Clear (Clear); Glucose, Urine (Dipstick) 200 mg/dL (Negative); Ketone, Urine Negative (Negative); Leukocyte Negative Leu/uL (Negative); Nitrite Negative (Negative); Protein, Urine (Dipstick) 20 mg/dL (Neg-Trace); RBC/HPF 0-3 HPF (0-3); Specific Gravity, Urine 1.009 (1.002-1.036); Squamous Epithelial None Seen HPF (0-3); Urobilinogen Normal mg/dL (Less than 2); WBC/HPF 0-3 HPF (0-3)
[2020-01-02 21:46] LABS: CKMB 1.5 ng/mL (0-6.6)
[2020-01-02] MEDS ORDERED: Digoxin 0.5 MG/2 ML AMP ONE (21:48)
[2020-01-02] MEDS ORDERED: Magnesium 2 GM/50 ML BAG (IN WATER) ONE (21:48)
--- NOTE | 2020-01-02 21:58 | CT ---
Exam: CT angiogram of the chest HISTORY: Trauma. Chest pain. COMPARISON: 06/07/2019 TECHNIQUE: CT angiogram of the chest is performed in the axial plane. Three-dimensional reformatted i mages are submitted for interpretation FINDINGS: Mediastinum: No mass, lymphadenopathy or hematoma. HEART: Normal size. No significant pericardial fluid. Aorta: Atherosclerosis. No aneurysm or dissection Upper solid abdominal viscera: Redemonstration of a well-circumscribed hypodensity involving the junc tion of the head and body the pancreas measuring 1.8 x 1.9 cm. Mild dilatation of the pancreatic duct distal to this lesion is noted. There is a hyperdensity along Heard's pouch which is incomplet yary evaluated. Dedicated abdomen and pelvis CT are recommended. Stable hypodensities in the hepatic parenchyma. Trachea and central bronchi: Patent Pleural spaces: No effusion Lung parenchyma: Dependent atelectatic changes. Chronic changes of the left and right lower lobe. Pneumothorax: None Osseous structures: Old right rib fractures. Multilevel degenerative changes of the thoracic line. St able lytic lesions in the visualized thoracic vertebra. Pulmonary arteries: Adequate contrast opacification pulmonary arterial system to the level of segment al arteries. No filling defect to suggest pulmonary embolism IMPRESSION: 1. No evidence of pulmonary artery embolism to the level of segmental arteries 2. Stable lytic lesions in the osseous structures. 3. Indeterminate hyperdensity adjacent to Heard's pouch. Possibility of a perihepatic hematoma walt ot be excluded. Abdomen and pelvic CT are recommended.
--- NOTE | 2020-01-02 23:20 | CT ---
Exam: Abdomen CT without contrast Pelvic CT without contrast HISTORY: Trauma. Abnormal finding on CT angiogram of the chest. COMPARISON: 07/02/2016. FINDINGS: Abdomen CT: Chronic changes in the lung bases. Normal heart size. No gastrohepatic, retrocrural or periportal lymphadenopathy. Gallbladder: Surgically absent. Limited evaluation of the alimentary canal by the lack of oral contrast. No evidence of a bowel obstr uction. Normal ileocecal junction. Appendix is not appreciated. No secondary signs of appendicitis. There is anastomosis of small bowel in the left upper quadrant. Scattered fecal material in a nondist ended, nondilated colon. Atherosclerosis of a nonaneurysmal aorta. Limited evaluation of the solid organs by the lack of IV contrast. Multiple hypodensities in the live r are redemonstrated. There is a hypodensity in the junction of the head and body of the pancreas. Spleen is not appreciated and is presumed to be surgically absent. Bilaterally no evidence of obstructive uropathy. Hyperdensity in the intrarenal collecting system and ureters due to recent administration of contrast. There is a mixed attenuation focus in Morison's pouch, adjacent to the right hepatic lobe. A perihepa tic hematoma, measuring 6.3 x 3.6 cm is favored. No mesenteric mass, lymphadenopathy, free air or significant free fluid. Pelvis CT: Contrast is in the urinary bladder. No pelvic mass, lymphadenopathy, free air or free fluid. Osseous structures: Old right rib fractures. No acute fractures of the visualized ribs or bony pelvis . Visualized vertebral bodies and sacrum are intact. There are scattered lytic foci which may represent a malignancy. Past CT reports comment upon the possibility of multiple myeloma. IMPRESSION: Perihepatic hypodensity at the level of the Morison pouch, worrisome for a perihepatic hematoma. No e vidence of hepatic parenchymal injury. Results study discussed with Dr. Lopez 01/02/2020 at 11:19 PM Code CR Transcribed Date/Time: 01/03/2020 7:26 AM
[2020-01-02 23:53] LABS: SARS-CoV-2 NAA Rapid Test Not Detected (NotDetected)
--- NOTE | 2020-01-03 00:04 | PDOC.EVN ---
Event Note - Event Note Event Note: [id number] HP
[2020-01-03 00:20] LABS: Hemoglobin 11.3 g/dL (14.0-18.0); Mean Corpuscular HGB CONC 32.5 g/dL (32.0-36.0); Mean Corpuscular Hemoglobin 35.6 pg (27.0-31.0); Platelet Count 193 thou/uL (130-400); RBC Distribution Width 16.3 % (11.5-14.5); Red Blood Cell (RBC) Count 3.17 mill/uL (4.70-6.10); White Blood Cell (WBC) Count 13.2 thou/uL (4.8-10.8)
[2020-01-03 00:35] LABS: #Eosinphils 0.2 thou/uL (0.0-0.7); #Lymphocytes 2.4 thou/uL (1.20-3.40); #Monocytes 1.9 thou/uL (0.11-0.59); #Neutrophils 8.7 thou/uL (1.40-6.50); %Basophils 0.3 % (0.0-1.0); %Eosinophils 1.2 % (0.0-10.0); %Lymphocytes 18.1 % (21.0-51.0); %Monocytes 14.5 % (0.0-10.0); %Neutrophils 65.9 % (42.0-75.0); MDiff Complete? YES; Macrocytosis SLIGHT = 6-15 cells (100X) (0-5/hpf)
[2020-01-03 00:43] LABS: ALT (SGPT) 49 U/L (8-55); AST (SGOT) 23 U/L (5-34); Albumin 3.5 g/dL (3.4-4.8); Alkaline Phosphatase 85 U/L (40-110); Anion Gap 17 mmol/L (10-20); BUN (Urea Nitrogen) 20 mg/dL (8.4-25.7); Bilirubin, Total 1.2 mg/dL (0.2-1.2); Calc. Creatinine Clearance 0 mL/min (70-130); Calcium 8.1 mg/dL (7.8-10.44); Carbon Dioxide 19 mmol/L (23-31); Chloride 103 mmol/L (98-107); Estimated GFR-MDRD 62; Globulin 2.5 g/dL (2.4-3.5); Glucose 185 mg/dL (83-110); Potassium 3.1 mmol/L (3.5-5.1); Sodium 136 mmol/L (136-145)
[2020-01-03 00:47] LABS: Troponin I 0.135 ng/mL (< 0.028)
--- NOTE | 2020-01-03 02:38 | HP ---
CHIEF COMPLAINT: Right neck and right chest pain. HISTORY OF PRESENT ILLNESS: Mr. Vora is a 69-year-old male with past medical history of multiple myeloma, myocardial infarction, pulmonary embolism on Eliquis, cardiac stents, pancreatitis, hypertension, among others, presented to the emergency room with right neck pain and right chest pain. The patient was here in the emergency room on December 22, 2019, for injuries secondary to mechanical fall. At that time, head and C-spine were performed and were negative. The patient reports gradually worsening right chest wall and right neck pain since the injury. The patient denies any subsequent fall or injury. Initial workup in the emergency room including imaging studies. CTA of the chest, no evidence of pulmonary embolism. There was an indeterminate hyperdensity adjacent to the Layla's pouch, possibility of perihepatic hematoma cannot be excluded. When the patient stood up in the emergency room, the patient went into atrial fibrillation with RVR and felt lightheaded. Also, the patient developed temperature of 101.5. Septic workup done in the ED. The patient was given IV antibiotics. The patient also was given IV diltiazem. It remained elevated. The patient was started on IV diltiazem drip, also was given one dose of IV digoxin. The patient is being admitted to hospital for further management. PAST MEDICAL HISTORY: 1. Multiple myeloma. 2. Myocardial infarction. 3. Congestive heart failure. 4. Pancreatitis. 5. Hypertension. PAST SURGICAL HISTORY: 1. Cholecystectomy. 2. Appendectomy. 3. Splenectomy. 4. Part of the pancreas removed. 5. Hernia repair. 6. MediPort placement. SOCIAL HISTORY: Denies drug use. Lives with the family at home. Denies alcohol use. Former tobacco smoker. REVIEW OF SYSTEMS: Review of 14 systems negative except for what is mentioned in the history of present illness. FAMILY HISTORY: Reviewed and noncontributory. HOME MEDICATIONS: Please see home medication reconciliation form for updated medications. ALLERGIES: NO KNOWN ALLERGIES. PHYSICAL EXAMINATION: GENERAL: The patient is awake, alert, in moderate distress. VITAL SIGNS: Blood pressure is 154/96, pulse is 105, respiratory rate is 22, oxygen saturations is 100% on room air, temperature 101.5. HEAD AND NECK: Normocephalic. Right side of the neck is tender. CHEST: Bilateral air entry. There is bruising and ecchymosis on the right side of the chest. HEART: Irregularly irregular, tachycardic. ABDOMEN: Soft, nontender. Bowel sounds present. NEUROLOGIC: Awake, alert, oriented x3. No focal deficits. PSYCH: Unable to assess. EXTREMITIES: No clubbing or cyanosis. LABORATORY DATA: Troponin 0.08. Urinalysis unremarkable. WBC count 13.6, hemoglobin 11.3, platelets 199. Sodium 135, potassium 3.0, glucose 143. CT of the cervical spine, no acute finding. CT of the brain, no acute findings. CTA of the chest as mentioned above in the history of present illness. ASSESSMENT: 1. Atrial fibrillation with RVR, new onset. 2. Sepsis, source unclear. 3. ?lois-hepatic hematoma. The patient has recent fall. The patient is anticoagulated on Eliquis. 4. Anticoagulated on Eliquis. 5. History of pulmonary embolism. 6. History of myocardial infarction. 7. Hypertension. 8. Multiple myeloma. PLAN: 1. Admit. 2. Septic workup including blood cultures. 3. IV antibiotics. 4. Continue with IV Cardizem drip. 5. 2D echo. 6. Serial troponins. 7. Surgery to be consulted for evaluation and further recommendations regarding ?lois-hepatic hematoma. The patient is on Eliquis, case discussed with the Emergency Room. 8. Hold anticoagulation. 9. Reconcile home medications. 10. DVT prophylaxis as appropriate. 11. Expected length of stay, 2 midnights or more. Job ID: [id number]
[2020-01-03 03:23] LABS: Lactic Acid 1.3 mmol/L (0.5-2.2)
[2020-01-03] MEDS ORDERED: Ondansetron ODT 4 MG TAB SL PRN (03:29)
[2020-01-03] MEDS ORDERED: Sodium Chloride 0.9% 1,000 ML IV SCH (03:29)
[2020-01-03] MEDS ORDERED: Ondansetron PF 4 MG/2 ML Vial IVP PRN (03:29)
[2020-01-03 03:30] LABS: Troponin I 0.149 ng/mL (< 0.028)
[2020-01-03] MEDS ORDERED: Diltiazem HCl 125 MG, Admixture Fee 1 EACH in Sodium Chloride 0.9% 100 ML IVPB SCH (03:45)
[2020-01-03 03:59] VITALS: BMI 25.5
[2020-01-03] MEDS: Sodium Chloride 0.9% 1,000 ML IV SCH ×2 (04:17→13:21)
[2020-01-03] MEDS ORDERED: traMADol HCl 50 MG TAB PO PRN (04:28)
[2020-01-03] MEDS: Cefepime 1 GM in Sodium Chloride 0.9% 100 ML IVPB SCH ×3 (05:17→21:22)
[2020-01-03] MEDS ORDERED: Ondansetron ODT 8 MG TAB PO PRN (08:21)
[2020-01-03] MEDS ORDERED: Potassium Chloride 20 MEQ TAB PO SCH (08:30)
[2020-01-03] MEDS ORDERED: Electrolyte Replacement Protoc 1 EACH EACH FS SCH (08:30)
[2020-01-03] MEDS ORDERED: Lenalidomide [Revlimid] 10 MG PO SCH (09:00)
[2020-01-03] MEDS ORDERED: Apixaban 5 MG TAB PO SCH (09:00)
[2020-01-03] MEDS ORDERED: Ergocalciferol 1.25 MG(50,000 UNITS) CAP PO SCH (09:00)
[2020-01-03] MEDS ORDERED: Vancomycin HCl 1 GM in Sodium Chloride 0.9% 250 ML 300 ML IVPB SCH (09:00)
[2020-01-03] MEDS: Aspirin Chewable 81 MG TAB PO SCH (09:30)
[2020-01-03] MEDS: Carvedilol 25 MG TAB PO SCH ×2 (09:31→21:22)
[2020-01-03] MEDS: Morphine 4 MG/ML VIAL SLOW IVP PRN ×2 (11:04→18:02)
--- NOTE | 2020-01-03 11:14 | CON ---
DATE OF CONSULTATION: 01/03/2020 INDICATION FOR CONSULTATION: A 69-year-old gentleman with atrial fibrillation with rapid ventricular response. HISTORY OF PRESENT ILLNESS: This is a very unfortunate 69-year-old gentleman, who was seen by me back in 2017, at which time he was diagnosed with multiple myeloma. At that time, he already had a history of coronary artery disease. He has undergone, I believe angioplasty and stent placement in the past by Dr. Cardenas over in [place]. He has history of pulmonary emboli as well as he has history of hypertension. He presented to the emergency room earlier this week after he had a fall, was complaining of some discomfort. He underwent, I believe evaluation at that time, was discharged home. He presented again yesterday to the emergency room complaining of right-sided pain in his neck and his head and face and when he stood up, apparently he went into atrial fibrillation with rapid ventricular response, heart rate was in the 150s. He was started on medications in the form of IV diltiazem and has since converted back to sinus rhythm. He does have a history in the past of intermittent atrial fibrillation also, I believe, but has been doing quite well. He is followed normally by Dr. Cardenas. He saw him a few weeks ago and said that he had an echocardiogram which was according to the patient within normal limits. He has not had a stress test recently that I am aware of at least not in this hospital, but will need to determine whether or not Dr. Cardenas has performed a stress test recently as far as his neck is as he continues to have some neck pain on the right side, but apparently the CT scan of the spine was unremarkable and he says that he has been relatively stable with his multiple myeloma. He has been placed on IV diltiazem and now the heart rate is in the 70s to 80s and shows a sinus rhythm. His blood pressure, however, is elevated in the 180s to 190 systolically with diastolics over 100, otherwise he seems to be comfortable. He was unaware that he had any atrial fibrillation. He denied any chest pain. His cardiac enzymes are slightly elevated, but most likely this is due to the demand ischemia associated with the tachycardia due to the atrial fibrillation. PAST MEDICAL HISTORY: Significant for the multiple myeloma, coronary artery disease, myocardial infarction, angioplasty with stent placement. He has a history in the past of some diastolic failure with congestive heart failure, pancreatitis, hypertension. He has had an appendectomy, cholecystectomy, splenectomy, partial pancreas removal, hernia repair. He has had a MediPort placed which is in the left upper chest area as well as his multiple myeloma and he has had a history of some atrial fibrillation in the past. He has actually been on Eliquis and remains so. SOCIAL HISTORY: He has no history of alcohol or tobacco abuse. He stays at home with his family. He smoked in the past, but stopped many years ago. REVIEW OF SYSTEMS: A 12-point review of systems; he mainly complained of the right neck pain and facial pain due to the previous fall. He has had no GI complaints , no complaints, no musculoskeletal complaints. Otherwise, no pulmonary complaints and no neurological complaints. He mainly said that when he fell before he had stumped his toe on a short rise in the concrete and fell. Otherwise, 12-point review of systems is unremarkable. MEDICATIONS: Prior to admission included; 1. Zofran. 2. Nexium. 3. Coreg 25 mg b.i.d., which he was taking only on a p.r.n. basis with his blood pressure was not very elevated. He would not take this medicine because he said it would significantly lower the blood pressure. He also was taking; 1. Lipitor 40 mg a day. 2. 81 mg of aspirin. 3. Celexa 10 mg a day. 4. Dexamethasone 2 mg p.o. as directed. He was taking; 1. Lasix 40 mg twice a day. 2. Vitamin D3. 3. Eliquis 5 mg b.i.d. He was also taking Revlimid for his multiple myeloma and he also was taking Flexeril as needed. ALLERGIES: THERE ARE NO KNOWN DRUG ALLERGIES. FAMILY HISTORY: Noncontributory. PHYSICAL EXAMINATION: GENERAL: Reveals an elderly gentleman, who is in no acute distress at this time. He is alert. He is oriented. He is comfortable. VITAL SIGNS: His vital signs does show a blood pressure now which is 181 to 190 systolic with diastolics of 106 to 111. He is afebrile. Respiratory rate is 18. His heart rate is in the 70s at this time that shows a sinus rhythm with occasional PVCs. HEENT: Shows the trauma with a hematoma and contusion to the right facial area and radiating down to the right neck. Carotid pulses are present without bruits. CHEST: Clear to auscultation. There were no rales, rhonchi, or wheezing. He has a Port-A-Cath in the left infraclavicular area. CARDIOVASCULAR: Reveals a regular rate and rhythm with occasional ectopy. He had a very soft systolic murmur over the aortic area, but otherwise no significant murmurs, heaves, thrills, bruits, or rubs are noted. ABDOMEN: Soft and nontender. Positive bowel sounds are present. He has had some well-healed surgical incisions. EXTREMITIES: Showed no clubbing, cyanosis, or edema. Pedal pulses are present. NEUROLOGIC: He appears to be intact. LABORATORY DATA: Shows a hemoglobin of 11.3, hematocrit 34.6, WBC of 13.2, platelet count was 193,000. Sodium was 136, potassium 3.1, BUN was 20, creatinine was 1.16, and blood sugar was 185. Cardiac enzymes were 0.084, increased up to 0.135 and now the last one is 0.149. INR is 1.0. IMPRESSION: 1. Elderly gentleman with atrial fibrillation with rapid ventricular response, which is converted back to sinus rhythm. I can certainly consider starting Multaq on this gentleman for his atrial fibrillation. Hopefully, this will not recur. We will await the results of the echocardiogram. I will try to get results also from [facility] as to his most recent stress test as well as most recent echocardiogram. 2. History of hypertension. This will need to be dealt with today since the blood pressure is significantly elevated. We will give him his Coreg this morning and see whether or not the blood pressure improves. Otherwise, he may need to be started on isosorbide or some type of nitrate in order to lower the blood pressure. 3. History of multiple myeloma. This will be dealt with by the Hematology/ Oncology service or by the primary care service if he remains stable. We will be more than happy to continue to follow the patient with you. The most important thing at this time is to lower his blood pressure and continue his other medications. Hopefully, we will start p.o. diltiazem, this may be adequate to control the blood pressure as well as also maintain sinus rhythm. Job ID: [id number] [facility]
[2020-01-03] MEDS ORDERED: Labetalol HCl 100 MG/20 ML VIAL SLOW IVP PRN (12:07)
[2020-01-03] MEDS ORDERED: Lisinopril 20 MG TAB PO SCH (12:15)
[2020-01-03] MEDS: hydrALAZINE 20 MG/ML VIAL SLOW IVP PRN (13:07)
[2020-01-03] MEDS ORDERED: cloNIDine 0.1 MG TAB PO PRN (13:44)
[2020-01-03] MEDS ORDERED: Amlodipine 5 MG TAB PO SCH (14:00)
[2020-01-03] MEDS: Atorvastatin Calcium 40 MG TAB PO SCH (21:21)
[2020-01-04] MEDS: Morphine 4 MG/ML VIAL SLOW IVP PRN ×2 (00:01→09:26)
[2020-01-04] MEDS: Vancomycin HCl 1.75 GM in Sodium Chloride 0.9% 500 ML IVPB SCH (01:26)
[2020-01-04 04:04] LABS: Anion Gap 12 mmol/L (10-20); BUN (Urea Nitrogen) 20 mg/dL (8.4-25.7); Calc. Creatinine Clearance 85 mL/min (70-130); Calcium 7.9 mg/dL (7.8-10.44); Carbon Dioxide 19 mmol/L (23-31); Chloride 106 mmol/L (98-107); Estimated GFR-MDRD 75; Glucose 127 mg/dL (83-110); Magnesium 1.8 mg/dL (1.6-2.6); Potassium 3.6 mmol/L (3.5-5.1); Sodium 133 mmol/L (136-145)
[2020-01-04] MEDS: Cefepime 1 GM in Sodium Chloride 0.9% 100 ML IVPB SCH ×3 (06:02→21:39)
[2020-01-04] MEDS: Sodium Chloride 0.9% 1,000 ML IV SCH (07:02)
[2020-01-04] MEDS ORDERED: Magnesium 2 GM/50 ML 2 GM in Premix Bag 1 BAG IVPB SCH (07:45)
--- NOTE | 2020-01-04 08:18 | PDOC.CPN ---
- Subjective Date: 01/04/20 Time: 08:28 Interval history: The pt seen and examined. No overnight events. No cardiac complaints - Objective Allergies/Adverse Reactions: Allergies Allergy/AdvReac Type Severity Reaction Status Date / Time No Known Allergies Allergy Verified 01/03/20 04:12 Visit Medications: Current Medications Amlodipine Besylate (Norvasc) 5 mg PO DAILY [facility] Aspirin (Aspirin Chewable) 81 mg PO DAILY [facility] Last Admin: 01/03/20 09:30 Dose: 81 mg Atorvastatin Calcium (Lipitor) 40 mg PO QPM [facility] Last Admin: 01/03/20 21:21 Dose: 40 mg Carvedilol (Coreg) 25 mg PO BID [facility] Last Admin: 01/03/20 21:22 Dose: 25 mg Clonidine (Catapres) 0.1 mg PO Q4H PRN PRN Reason: Hypertension Last Admin: 01/03/20 16:41 Dose: 0.1 mg Ergocalciferol (Drisdol) 1.25 mg PO Q7DAYS [facility] Last Admin: 01/03/20 09:31 Dose: Not Given Hydralazine HCl (Apresoline) 10 mg SLOW IVP Q4H PRN PRN Reason: BP > 180/110 Last Admin: 01/03/20 13:07 Dose: 10 mg Sodium Chloride (Normal Saline 0.9%) 1,000 mls @ 75 mls/hr IV .[id number] [facility] Last Admin: 01/04/20 07:02 Dose: Not Given Cefepime HCl 1 gm/ Sodium (Chloride) 100 mls @ 200 mls/hr IVPB Q8HR [facility] Last Admin: 01/04/20 06:02 Dose: 100 mls Vancomycin HCl 1.75 gm/ Sodium (Chloride) 500 mls @ 250 mls/hr IVPB 0100 [facility] Last Admin: 01/04/20 01:26 Dose: 500 mls Magnesium Sulfate 2 gm/ Device 50 mls @ 50 mls/hr IVPB NOW [facility] Stop: 01/04/20 09:45 Labetalol HCl (Normodyne) 10 mg SLOW IVP Q4H PRN PRN Reason: SBP Greater Than 180 Lisinopril (Zestril) 20 mg PO DAILY [facility] Miscellaneous Medication (Pharmacy To Dose) 1 each IVPB PRN PRN PRN Reason: Pharmacy to dose Miscellaneous Medication (Electrolyte Replacement Protocol) 1 each FS ASDIR VIJAY Morphine Sulfate (Morphine) 4 mg SLOW IVP Q4H PRN PRN Reason: Pain Last Admin: 01/04/20 00:01 Dose: 4 mg Ondansetron HCl (Zofran Odt) 8 mg PO TID PRN PRN Reason: Nausea/Vomiting Pantoprazole Sodium (Protonix) 40 mg PO QAM PRN PRN Reason: acid reflux Last Admin: 01/03/20 09:31 Dose: 40 mg Vital Signs & Weight: Vital Signs Temp 01/04/20 07:45 101.8 F H 01/04/20 03:56 97.7 F 01/03/20 23:56 98.4 F Weight 193 lb 9 oz - Physical Exam General: alert & oriented x3 HEENT: mucus membranes moist Neck: supple neck Cardiac: regular rate and rhythm, S1/S2 Lungs: clear to auscultation, decreased breath sounds Neuro: cranial nerve 2-12 intact Skin: other (bruises to Rt face;) - Labs Result Diagrams: 01/03/20 00:05 01/04/20 03:00 Troponin/CKMB CK-MB (CK-2) 1.5 ng/mL (0-6.6) 01/02/20 20:56 Troponin I 0.149 ng/mL (< 0.028) H 01/03/20 02:45 - Telemetry Sinus rhythms and dysrhythmias: sinus rhythm - Assessment/Plan Assessment/Plan: 1. Parox Afib with RVR - remains in SR; On Coreg 25mg BID and Eliquis 5mg BID; may start Diltiazem PO if his VS is more stable 2. CAD with hx of stent in 2012 - 3. HTN - stable with current med 4. HLD - on Statin 5. Anemia - stable 6. Multiple myeloma - MAR reviewed Pt. seen and eval. by me this AM. He denies cardiac c/o's. He has an elevated temp and H/A today. Chest clear. RRR. No edema. Bp is much better. Resume Eliquis. May need to d/c amlodipine and start po diltiazem. FIDELIA
--- NOTE | 2020-01-04 08:40 | PDOC.HOSPP ---
- Subjective Encounter Date: 01/04/20 Encounter Time: 08:35 Subjective: overnight, febrile 101.8. On encounter, lying comfortably in bed, complains of severe left shoulder pain and inability to move that deveopled overnight. No other complaints. - Objective Vital Signs & Weight: Vital Signs (12 hours) Temp 01/04/20 07:45 101.8 F H 01/04/20 03:56 97.7 F 01/03/20 23:56 98.4 F Weight Weight 193 lb 9 oz Most Recent Monitor Data Heart Rate from ECG 70 NIBP 117/73 NIBP BP-Mean 87 Respiration from ECG 14 SpO2 98 I&O: 01/03/20 01/04/20 01/05/20 06:59 06:59 06:59 Intake Total 471 3220 Output Total 200 1775 Balance 271 1445 Result Diagrams: 01/03/20 00:05 01/04/20 03:00 Hospitalist ROS - Review of Systems Constitutional: reports: fever. denies: chills, sweats ENT: denies: throat pain, throat swelling Respiratory: denies: cough, shortness of breath, pleuritic pain Cardiovascular: denies: chest pain, palpitations, orthopnea, paroxysmal noc. dyspnea, edema Gastrointestinal: denies: nausea, vomiting, abdominal pain, diarrhea Genitourinary: reports: frequency. denies: dysuria, hematuria - Medication Medications: Active Medications Generic Name Dose Route Start Last Admin Trade Name Freq PRN Reason Stop Dose Admin Aspirin 81 mg 01/03/20 09:00 01/03/20 09:30 Aspirin Chewable PO 81 mg DAILY VIJAY Administration Atorvastatin Calcium 40 mg 01/03/20 21:00 01/03/20 21:21 Lipitor PO 40 mg QPM VIJAY Administration Carvedilol 25 mg 01/03/20 09:00 01/03/20 21:22 Coreg PO 25 mg BID VIJAY Administration Clonidine 0.1 mg 01/03/20 13:44 01/03/20 16:41 Catapres PO 0.1 mg Q4H PRN Administration Hypertension Ergocalciferol 1.25 mg 01/03/20 09:00 01/03/20 09:31 Drisdol PO Not Given Q7DAYS VIJAY Hydralazine HCl 10 mg 01/03/20 12:09 01/03/20 13:07 Apresoline SLOW IVP 10 mg Q4H PRN Administration BP > 180/110 Sodium Chloride 1,000 mls @ 75 mls/hr 01/02/20 23:59 01/04/20 07:02 Normal Saline 0.9% IV Not Given .[id number] VIJAY Cefepime HCl 1 gm/ Sodium 100 mls @ 200 mls/hr 01/03/20 06:00 01/04/20 06:02 Chloride IVPB 100 mls Q8HR VIJAY Administration Vancomycin HCl 1.75 gm/ Sodium 500 mls @ 250 mls/hr 01/04/20 01:00 01/04/20 01:26 Chloride IVPB 500 mls 0100 VIJAY Administration Morphine Sulfate 4 mg 01/03/20 09:57 01/04/20 00:01 Morphine SLOW IVP 4 mg Q4H PRN Administration Pain Pantoprazole Sodium 40 mg 01/03/20 08:21 01/03/20 09:31 Protonix PO 40 mg QAM PRN Administration acid reflux - Exam General Appearance: NAD, awake alert ENT: moist mucosa Heart: RRR, no murmur, no gallops, no rubs Heart - other findings: sinus on tele Respiratory: CTAB, no wheezes, no rales, no ronchi Gastrointestinal: soft, non-tender, non-distended, normal bowel sounds Extremities: no edema Extremities - other findings: R arm - shoulder passive motion limited by pain; severe tenderness on super Psychiatric: normal affect, normal behavior, A&O x 3 Hosp A/P - Plan #p. afib currently sinus continue coreg; cardizem drip stopped per cardiology; started lovenox low dose for now considering possible hepatic hematoma and pending hepatic U/S; will restart apixaban depending on study results #fever -febrile 101.8 despite vanc cefepime -may be drug-induced, cancer induced. -repeat UA -immobile for about a week so getting doppler; new onset afib w/ RVR + fever may have been a result of PE but echo inconsistent #HTN well controlled; continue current regimen #L shoulder pain shoulder x-ray; may be rotator cuff pathology/tear based on symptoms location so may need MRI Tylenol PRN pain Full code pending discussion w ELOS 2-3 nights
[2020-01-04] MEDS ORDERED: Amlodipine 5 MG TAB PO SCH (09:00)
[2020-01-04] MEDS ORDERED: Enoxaparin Sodium 60 MG/0.6 ML SYRINGE SC SCH (09:00)
[2020-01-04] MEDS: Lisinopril 20 MG TAB PO SCH (09:29)
[2020-01-04] MEDS: Aspirin Chewable 81 MG TAB PO SCH (09:29)
[2020-01-04] MEDS: Acetaminophen 325 MG TAB PO PRN (09:29)
[2020-01-04] MEDS: Carvedilol 25 MG TAB PO SCH ×2 (09:31→21:36)
[2020-01-04] MEDS: Apixaban 5 MG TAB PO SCH ×2 (09:49→21:36)
[2020-01-04] MEDS: Cyanocobalamin (Vitamin B-12) 1,000 MCG TAB PO SCH (09:49)
[2020-01-04] MEDS: Diltiazem HCl SR 60 mg Capsule PO SCH ×2 (09:49→21:36)
--- NOTE | 2020-01-04 10:12 | ULT ---
EXAM: Bilateral lower extremity venous Doppler US HISTORY: bilateral lower extremity edema, immobility and pain FINDINGS: Grayscale, color-flow, Doppler evaluation, spectral analysis of the bilateral lower extremities venou s structures is performed with 2-D imaging. The bilateral common femoral, superficial femoral, popliteal, posterior tibial, proximal greater saphenous and profunda femoral veins are imaged. There is normal luminal compressibility, flow, and augmentation in the visualized deep venous structu res of the bilateral lower extremities. IMPRESSION: No evidence of a deep vein thrombosis in either lower extremity.
--- NOTE | 2020-01-04 11:37 | RAD ---
XR Shoulder Lt 3 View STANDARD HISTORY: Fall, left shoulder pain FINDINGS: No fracture or dislocation is identified. There are degenerative changes in the acromioclavicular and glenohumeral joints.
--- NOTE | 2020-01-04 15:19 | ULT ---
US Hepatic Doppler: 01/04/2020 8:55 AM CLINICAL HISTORY: Chronic hepatitis. STUDY: Right upper quadrant ultrasound of liver. TECHNIQUE: Multiplanar grayscale and color Doppler images were obtained in a ultrasound of the right upper quadrant of the abdomen. Spectral analysis of the Doppler waveforms of the hepatic and splenic vessels were performed. COMPARISON: CT abdomen/pelvis 01/02/2020 FINDINGS: Liver: Size: Normal. Echogenicity: Normal. Contour: Smooth. Mass: None. There is a complex fluid collection in Morison's pouch measuring 6 x 8 x 2 cm in size. This correspon ds to the CT abnormality. Bile ducts: No intrahepatic or extrahepatic biliary dilatation. Common bile duct is not visualized. Gallbladder: Removed Pancreas: There is a 2 cm cyst in the pancreas. Hepatic veins: Normal waveforms. Normal directional flow. Portable veins: Normal waveforms. Normal directional flow. Hepatic arteries: Normal waveforms. Normal directional flow. The spleen has been removed. IMPRESSION: 1. Complex fluid collection in Morison's pouch corresponds to the CT abnormality. 2. Pancreatic cyst
[2020-01-04 17:38] LABS: Bacteria/HPF None Seen HPF (None Seen); Bilirubin Negative (Negative); Blood, Urine 2+ (Negative); Clarity Turbid (Clear); Glucose, Urine (Dipstick) 70 mg/dL (Negative); Ketone, Urine Trace mg/dL (Negative); Leukocyte Negative Leu/uL (Negative); Mucous/LPF 1+ LPF (<2+); Nitrite Negative (Negative); Protein, Urine (Dipstick) 100 mg/dL (Neg-Trace); RBC/HPF 0-3 HPF (0-3); Specific Gravity, Urine 1.027 (1.002-1.036); Squamous Epithelial None Seen HPF (0-3); Urobilinogen Normal mg/dL (Less than 2); pH, Urine 5.5 (5.0-9.0)
[2020-01-04] MEDS ORDERED: cloNIDine 0.1 MG TAB PO PRN (21:33)
[2020-01-04] MEDS: Atorvastatin Calcium 40 MG TAB PO SCH (21:36)
[2020-01-05 00:54] LABS: Vancomycin, Trough 11.7 ug/mL
[2020-01-05] MEDS: hydrALAZINE 20 MG/ML VIAL SLOW IVP PRN (01:14)
[2020-01-05] MEDS: Vancomycin HCl 1.75 GM in Sodium Chloride 0.9% 500 ML IVPB SCH (01:21)
[2020-01-05] MEDS: Acetaminophen 325 MG TAB PO PRN ×2 (05:11→13:01)
[2020-01-05] MEDS: Cefepime 1 GM in Sodium Chloride 0.9% 100 ML IVPB SCH ×3 (05:12→21:02)
[2020-01-05 05:22] LABS: Anion Gap 12 mmol/L (10-20); BUN (Urea Nitrogen) 31 mg/dL (8.4-25.7); Calc. Creatinine Clearance 72 mL/min (70-130); Calcium 8.5 mg/dL (7.8-10.44); Carbon Dioxide 19 mmol/L (23-31); Chloride 105 mmol/L (98-107); Estimated GFR-MDRD 61; Glucose 100 mg/dL (83-110); Potassium 3.4 mmol/L (3.5-5.1); Sodium 133 mmol/L (136-145)
[2020-01-05 05:27] LABS: Band 2 % (5-11); Eosinophils 2 % (0-10); Hemoglobin 10.4 g/dL (14.0-18.0); Hypochromia SLIGHT = 6-15 cells (100X) (0-5/hpf); Lymphocytes 22 % (21-51); MDiff Complete? YES; Macrocytosis SLIGHT = 6-15 cells (100X) (0-5/hpf); Mean Corpuscular HGB CONC 34.6 g/dL (32.0-36.0); Mean Corpuscular Hemoglobin 38.7 pg (27.0-31.0); Mean Platelet Volume 10.5 fL (7.4-10.4); Metamyelocyte 1 % (0-0); Monocytes 2 % (0-10); Neutrophil 71 % (42-75); Platelet Count 138 thou/uL (130-400); Platelet Morphology Comment Appears Adequate; RBC Distribution Width 16.1 % (11.5-14.5); Red Blood Cell (RBC) Count 2.67 mill/uL (4.70-6.10); White Blood Cell (WBC) Count 9.6 thou/uL (4.8-10.8)
[2020-01-05] MEDS ORDERED: Potassium Chloride 20 MEQ TAB PO SCH (06:45)
[2020-01-05] MEDS: Carvedilol 25 MG TAB PO SCH ×2 (09:29→20:12)
[2020-01-05] MEDS: Aspirin Chewable 81 MG TAB PO SCH (09:29)
[2020-01-05] MEDS: Diltiazem HCl SR 60 mg Capsule PO SCH (09:31)
[2020-01-05] MEDS: Lisinopril 20 MG TAB PO SCH (09:31)
[2020-01-05] MEDS: Cyanocobalamin (Vitamin B-12) 1,000 MCG TAB PO SCH (09:31)
[2020-01-05] MEDS: Vancomycin 1 GM in Premix Bag 1 BAG IVPB SCH (12:57)
--- NOTE | 2020-01-05 14:25 | PDOC.CPN ---
- Subjective Date: 01/05/20 Time: 14:32 Interval history: The pt seen and examined. No overnight events. No cardiac complaints. - Objective Allergies/Adverse Reactions: Allergies Allergy/AdvReac Type Severity Reaction Status Date / Time No Known Allergies Allergy Verified 01/03/20 04:12 Visit Medications: Current Medications Acetaminophen (Tylenol) 650 mg PO Q6H PRN PRN Reason: Headache/Fever or Mild Pain Last Admin: 01/05/20 13:01 Dose: 650 mg Apixaban (Eliquis) 5 mg PO BID [facility] Last Admin: 01/04/20 21:36 Dose: 5 mg Aspirin (Aspirin Chewable) 81 mg PO DAILY [facility] Last Admin: 01/05/20 09:29 Dose: 81 mg Atorvastatin Calcium (Lipitor) 40 mg PO QPM [facility] Last Admin: 01/04/20 21:36 Dose: 40 mg Carvedilol (Coreg) 12.5 mg PO BID [facility] Last Admin: 01/05/20 09:29 Dose: 12.5 mg Clonidine (Catapres) 0.1 mg PO Q4H PRN PRN Reason: BP > 180/110 Cyanocobalamin (Vitamin B-12) 1,000 mcg PO DAILY [facility] Last Admin: 01/05/20 09:31 Dose: 1,000 mcg Diltiazem HCl (Cardizem Sr) 60 mg PO BID [facility] Last Admin: 01/05/20 09:31 Dose: 60 mg Ergocalciferol (Drisdol) 1.25 mg PO Q7DAYS [facility] Last Admin: 01/03/20 09:31 Dose: Not Given Hydralazine HCl (Apresoline) 10 mg SLOW IVP Q4H PRN PRN Reason: BP > 180/110 Last Admin: 01/05/20 01:14 Dose: 10 mg Cefepime HCl 1 gm/ Sodium (Chloride) 100 mls @ 200 mls/hr IVPB Q8HR [facility] Last Admin: 01/05/20 14:16 Dose: 100 mls Vancomycin HCl 1 gm/ Device 200 mls @ 200 mls/hr IVPB 0100,1300 [facility] Last Admin: 01/05/20 12:57 Dose: 200 mls Lisinopril (Zestril) 20 mg PO DAILY [facility] Last Admin: 01/05/20 09:31 Dose: 20 mg Miscellaneous Medication (Pharmacy To Dose) 1 each IVPB PRN PRN PRN Reason: Pharmacy to dose Miscellaneous Medication (Electrolyte Replacement Protocol) 1 each FS ASDIR VIJAY Ondansetron HCl (Zofran Odt) 8 mg PO TID PRN PRN Reason: Nausea/Vomiting Pantoprazole Sodium (Protonix) 40 mg PO QAM PRN PRN Reason: acid reflux Last Admin: 01/04/20 09:31 Dose: 40 mg Sodium Chloride (Flush - Normal Saline) 10 ml IVF Q12HR [facility]JAY Last Admin: 01/05/20 09:32 Dose: 10 ml Sodium Chloride (Flush - Normal Saline) 10 ml IVF PRN PRN PRN Reason: Saline Flush Vital Signs & Weight: Vital Signs Temp Pulse Pulse Pulse Resp BP BP 01/05/20 11:44 97.6 F 65 18 01/05/20 09:31 160/77 H 01/05/20 08:34 67 66 169/92 H 01/05/20 08:00 01/05/20 07:35 98.2 F 72 18 01/05/20 05:02 99 F 72 20 BP BP BP Pulse Ox 01/05/20 11:44 146/81 H 98 01/05/20 09:31 01/05/20 08:34 155/84 H 01/05/20 08:00 97 01/05/20 07:35 160/77 H 97 01/05/20 05:02 153/94 H 96 Weight 193 lb 9 oz - Physical Exam General: alert & oriented x3 HEENT: mucus membranes moist Neck: supple neck Cardiac: regular rate and rhythm, S1/S2 Lungs: clear to auscultation Neuro: cranial nerve 2-12 intact Extremities: no edema Skin: other (bruses in his Rt face) - Labs Result Diagrams: 01/05/20 04:40 01/05/20 04:40 Troponin/CKMB CK-MB (CK-2) 1.5 ng/mL (0-6.6) 01/02/20 20:56 Troponin I 0.149 ng/mL (< 0.028) H 01/03/20 02:45 - Telemetry Sinus rhythms and dysrhythmias: sinus rhythm - Assessment/Plan Assessment/Plan: 1. Parox Afib with RVR - remains in SR; On Coreg 25mg BID, ASA 81mg qd, and Diltiazem which will be increased from 60mg to 90mg BID from [facility]; Eliquis 5mg BID is on hold due to Sx consult for Roman's pouch and hx of multiple falls (at least 4 times in last 2 wks per family); 2. CAD with hx of stent in 2012 - 3. HTN - stable with current med 4. HLD - on Statin 5. Anemia - stable 6. Multiple myeloma - 7. Roman's pouch - Surgery consult 8. S/p multiple falls due to abnormal balance - per family, the pt has falls more than 4 times in last 2wks. MAR reviewed Pt. seen and eval. by me. I agree with the /P by the DRAMATIC TEACHER. chest clear. RRR.gjm
[2020-01-05] MEDS ORDERED: Bisacodyl 10 MG SUPP PR PRN (14:55)
--- NOTE | 2020-01-05 15:56 | PDOC.CONS ---
- Consultation Encounter Date: 01/05/20 Encounter Time: 15:47 CHIEF COMPLAINT: Neck pain HISTORY OF PRESENT ILLNESS: 69-year-old male with significant past medical history for multiple myeloma, cardiac disease, pulmonary embolism, anticoagulation, and pancreatitis presented to the emergency room with right-sided neck pain and chest pain. He had a recent admission for a fall from standing. Imaging at that time was negative. He presents now with progressively worsening neck and right-sided chest pain. CTA was performed which was negative; however, it did note a 6 x 4 heterogeneous collection in Morison's pouch consistent with a hematoma. The patient denies any abdominal pain, but does endorse right-sided flank pain. He tolerating a regular diet with no nausea or vomiting. Prior to his admission, he had normal bowel function, although he now complains of constipation. He has new onset atrial fibrillation with rapid ventricular response that began during his emergency room visit. REVIEW OF SYSTEMS: General: Endorses fevers during this admission. Eyes: Denies visual changes, pain, or irritation ENT: Denies changes in hearing, nasal discharge, or sore throat Cardiovascular: Denies chest pain, palpitations, shortness of breath, or edema. Respiratory: Denies cough, shortness of breath, or wheezing Gastrointestinal: Denies abdominal pain, nausea, or vomiting. Genitourinary: Denies frequent urination or dysuria Musculoskeletal: Endorses right neck and thoracic pain. Integumentary: Multiple ecchymosis of the trunk and face from his previous fall. Neurological: Denies numbness, tingling, or weakness. Psychiatric: Caregiver describes altered mental status during this admission with confusion. 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 There is also evidence of a small bowel anastomosis PAST SURGICAL HISTORY: Small bowel resection? Distal pancreatectomy with splenectomy? Laparoscopic cholecystectomy Laparoscopic appendectomy Mediport placement Hernia repair FAMILY HISTORY: Viewed and noncontributory SOCIAL HISTORY Former smoker, denies illicit drug use, endorses occasional alcohol consumption. ALLERGIES: No known drug allergies PHYSICAL EXAM: Vital Signs: HR 72 BP 153/94 T one 1.8 RR 20 SpO2 [ ] General: Alert and oriented, no acute distress. Appears in generally poor health ENT: Sclera anicteric, pupils equal and reactive, mucous membranes moist. Significant hematomas of the right side of the face Neck: No jugular venous distention, trachea midline Cardiovascular: Irregular rhythm; rate controlled Pulmonary: Clear to auscultation; poor tidal volumes Abdominal: Soft, nondistended, nontender Genitourinary: Normal anatomy Rectal: Deferred Integument: No abnormal rashes or lesions. Scattered ecchymosis and scattered actinic keratosis Musculoskeletal: No gross deformities or edema, normal range of motion LABORATORY: Laboratory analysis reviewed and demonstrates a white blood cell count of 9.6 ( improved from 13.6) hemoglobin 10.4; mildly elevated creatinine of 1.2 IMAGING: CT of the abdomen and pelvis reviewed as well as radiology interpretation. Demonstrates a heterogeneous fluid collection in Morison's pouch consistent with hematoma ASSESSMENT: 69-year-old comorbid male status post fall with musculoskeletal pain, atrial fibrillation with rapid ventricular response, and complex fluid collection of uncertain etiology. Given the patient's recent fall history on the right side, it is reasonable to assume that this is a hematoma. PLAN: Expectant management for now. No surgical intervention. If there is concern about the fluid collection being a source of an infectious etiology, may consider biopsy/aspiration. Please consider that if it is a hematoma, it is almost assuredly sterile and that biopsy and/or aspiration may provide for bacterial inoculation and further complications. We will follow peripherally. Please call for any further questions. Atrial fibrillation: Per hospitalist team and cardiology Constipation: Recommend daily bowel regimen
--- NOTE | 2020-01-05 17:30 | PDOC.HOSPP ---
- Subjective Encounter Date: 01/05/20 Encounter Time: 09:00 Subjective: Overnight, patient confused. This morning, mildly confused, shoulder pain much improved (baseline), and requesting to leave. Had multiple conversations with regarding confusion causes, diagnoses and treatments. This morning, less confused but still says that we have him in shackles and requests to leave. Explained to that at this point has no decisional capacity but that may change and then, have no ability to keep as inpatient against will. Patient received extensive education for over an hour overall including and agreed to stay. - Objective Vital Signs & Weight: Vital Signs (12 hours) Temp Pulse Pulse Pulse Resp BP BP 01/05/20 16:00 98.1 F 58 L 22 H 01/05/20 11:44 97.6 F 65 18 01/05/20 09:31 160/77 H 01/05/20 08:34 67 66 169/92 H 01/05/20 08:00 01/05/20 07:35 98.2 F 72 18 BP BP BP Pulse Ox 01/05/20 16:00 118/68 97 01/05/20 11:44 146/81 H 98 01/05/20 09:31 01/05/20 08:34 155/84 H 01/05/20 08:00 97 01/05/20 07:35 160/77 H 97 Weight Weight 193 lb 9 oz Most Recent Monitor Data Heart Rate from ECG 65 NIBP 108/64 NIBP BP-Mean 78 Respiration from ECG 14 SpO2 99 I&O: 01/04/20 01/05/20 01/06/20 06:59 06:59 06:59 Intake Total 3220 1090 120 Output Total 1775 625 Balance 1445 465 120 Result Diagrams: 01/05/20 04:40 01/05/20 04:40 Hospitalist ROS - Review of Systems Constitutional: denies: chills, sweats Respiratory: denies: cough, dry, shortness of breath, pleuritic pain, sputum Cardiovascular: reports: edema. denies: chest pain, palpitations, orthopnea Genitourinary: denies: dysuria, frequency, hematuria Musculoskeletal: reports: neck pain, shoulder pain, back pain - Medication Medications: Active Medications Generic Name Dose Route Start Last Admin Trade Name Freq PRN Reason Stop Dose Admin Apixaban 5 mg 01/04/20 09:00 01/04/20 21:36 Eliquis PO 5 mg BID VIJAY Administration Aspirin 81 mg 01/03/20 09:00 01/05/20 09:29 Aspirin Chewable PO 81 mg DAILY VIJAY Administration Atorvastatin Calcium 40 mg 01/03/20 21:00 01/04/20 21:36 Lipitor PO 40 mg QPM VIJAY Administration Carvedilol 12.5 mg 01/04/20 21:00 01/05/20 09:29 Coreg PO 12.5 mg BID VIJAY Administration Cyanocobalamin 1,000 mcg 01/04/20 09:00 01/05/20 09:31 Vitamin B-12 PO 1,000 mcg DAILY VIJAY Administration Ergocalciferol 1.25 mg 01/03/20 09:00 01/03/20 09:31 Drisdol PO Not Given Q7DAYS VIJAY Hydralazine HCl 10 mg 01/03/20 12:09 01/05/20 01:14 Apresoline SLOW IVP 10 mg Q4H PRN Administration BP > 180/110 Cefepime HCl 1 gm/ Sodium 100 mls @ 200 mls/hr 01/03/20 06:00 01/05/20 14:16 Chloride IVPB 100 mls Q8HR VIJAY Administration Vancomycin HCl 1 gm/ Device 200 mls @ 200 mls/hr 01/05/20 13:00 01/05/20 12: 57 IVPB 200 mls 0100,1300 VIJAY Administration Lisinopril 20 mg 01/04/20 09:00 01/05/20 09:31 Zestril PO 20 mg DAILY VIJAY Administration Pantoprazole Sodium 40 mg 01/03/20 08:21 01/04/20 09:31 Protonix PO 40 mg QAM PRN Administration acid reflux Sodium Chloride 10 ml 01/05/20 09:00 01/05/20 09:32 Flush - Normal Saline IVF 10 ml Q12HR VIJAY Administration - Exam General Appearance: NAD, awake alert Eye: PERRL, anicteric sclera Neck: no JVD Heart: RRR, no murmur, no gallops, no rubs Respiratory: CTAB, no wheezes, no rales, no ronchi Gastrointestinal: soft, non-tender, non-distended, normal bowel sounds Psychiatric: normal affect, normal behavior, A&O x 3 Psychiatric - other findings: auditory hallucinations (can hear our shackles) and mild agitation; improve Hosp A/P - Plan #p. afib sinus shortly after admission continue coreg, cardizem holding apixaban due to hematoma; will start lovenox PPx for now #fever -febrile 101.8 despite vanc cefepime (01/04); afebrile since -repeat UA negative; infectious workup negative final; LE doppler negative for DVT -may be fluid accumulation; per surgery, if hematoma likely sterile and aspiration may risk inoculation; drug-induced fever, cancer, pneumonitis -consider ID if spikes another fever -continue vanc/cef -procalcitonin #confusion resolved during day may be ABx, delirium, infectious, medication induced stopped morphine and pepcid #Roman pouch -per surgery, likely hematoma considering recent fall -no intervention at this point; surgery will follow peripherally #HTN well controlled; continue current regimen #L shoulder pain shoulder x-ray showing chronic degenerative changes; likely acute on chronic due to fall Tylenol PRN pain Full code ELOS 2-3 nights
[2020-01-05] MEDS: Sodium Chloride 0.9% 1,000 ML IV SCH (18:25)
[2020-01-05] MEDS: Atorvastatin Calcium 40 MG TAB PO SCH (20:12)
[2020-01-05] MEDS: Diltiazem HCl SR 90 mg Capsule PO SCH (20:12)
[2020-01-05] MEDS: Senokot S 8.6-50 MG TAB PO SCH (20:13)
[2020-01-05] MEDS: Enoxaparin Sodium 40 MG/0.4 ML SYRINGE SC SCH (20:13)
[2020-01-06] MEDS: Vancomycin 1 GM in Premix Bag 1 BAG IVPB SCH ×2 (01:08→12:42)
[2020-01-06] MEDS: Acetaminophen 500 MG TAB PO PRN ×2 (01:23→08:42)
[2020-01-06] MEDS: Cefepime 1 GM in Sodium Chloride 0.9% 100 ML IVPB SCH ×3 (05:10→22:19)
[2020-01-06 05:33] LABS: Anion Gap 11 mmol/L (10-20); BUN (Urea Nitrogen) 31 mg/dL (8.4-25.7); Calc. Creatinine Clearance 70 mL/min (70-130); Carbon Dioxide 18 mmol/L (23-31); Chloride 106 mmol/L (98-107); Estimated GFR-MDRD 60; Glucose 146 mg/dL (83-110); Potassium 3.3 mmol/L (3.5-5.1); Sodium 132 mmol/L (136-145)
[2020-01-06] MEDS ORDERED: Potassium Chloride 20 MEQ TAB PO SCH (05:45)
[2020-01-06 05:51] LABS: Band 4 % (5-11); Hemoglobin 8.7 g/dL (14.0-18.0); Lymphocytes 3 % (21-51); MDiff Complete? YES; Macrocytosis SLIGHT = 6-15 cells (100X) (0-5/hpf); Mean Corpuscular HGB CONC 32.4 g/dL (32.0-36.0); Mean Corpuscular Hemoglobin 35.1 pg (27.0-31.0); Mean Platelet Volume 10.8 fL (7.4-10.4); Monocytes 10 % (0-10); Neutrophil 83 % (42-75); Platelet Count 123 thou/uL (130-400); Platelet Morphology Comment Appears Decreased; RBC Distribution Width 16.1 % (11.5-14.5); Red Blood Cell (RBC) Count 2.49 mill/uL (4.70-6.10); White Blood Cell (WBC) Count 6.9 thou/uL (4.8-10.8)
[2020-01-06] MEDS ORDERED: Magnesium 2 GM/50 ML 2 GM in Premix Bag 1 BAG IVPB SCH (06:30)
[2020-01-06] MEDS: Enoxaparin Sodium 40 MG/0.4 ML SYRINGE SC SCH ×2 (08:42→20:52)
[2020-01-06] MEDS: Senokot S 8.6-50 MG TAB PO SCH ×2 (08:42→21:00)
[2020-01-06] MEDS: Cyanocobalamin (Vitamin B-12) 1,000 MCG TAB PO SCH (08:42)
[2020-01-06] MEDS: Aspirin Chewable 81 MG TAB PO SCH (08:43)
[2020-01-06] MEDS: Lisinopril 20 MG TAB PO SCH (08:43)
[2020-01-06] MEDS: Diltiazem HCl SR 90 mg Capsule PO SCH ×2 (08:44→20:52)
[2020-01-06 10:12] LABS: Potassium 3.6 mmol/L (3.5-5.1)
[2020-01-06] MEDS ORDERED: Furosemide 20 MG/2 ML VIAL SLOW IVP SCH ×2 (10:15→16:45)
--- NOTE | 2020-01-06 10:28 | PDOC.CPN ---
- Subjective Date: 01/06/20 Time: 10:31 Interval history: The pt seen and examined. No overnight events. No cardiac complaints, except wheezing after walking exercise with PT. 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 - Objective Allergies/Adverse Reactions: Allergies Allergy/AdvReac Type Severity Reaction Status Date / Time No Known Allergies Allergy Verified 01/03/20 04:12 Visit Medications: Current Medications Acetaminophen (Tylenol) 1,000 mg PO Q6H PRN PRN Reason: Moderate to Severe Pain (6-10) Last Admin: 01/06/20 08:42 Dose: 1,000 mg Aspirin (Aspirin Chewable) 81 mg PO DAILY [facility] Last Admin: 01/06/20 08:43 Dose: 81 mg Atorvastatin Calcium (Lipitor) 40 mg PO QPM [facility] Last Admin: 01/05/20 20:12 Dose: 40 mg Bisacodyl (Dulcolax) 10 mg MA Q8H PRN PRN Reason: Constipation Carvedilol (Coreg) 12.5 mg PO BID [facility] Last Admin: 01/05/20 20:12 Dose: 12.5 mg Clonidine (Catapres) 0.1 mg PO Q4H PRN PRN Reason: BP > 180/110 Cyanocobalamin (Vitamin B-12) 1,000 mcg PO DAILY [facility] Last Admin: 01/06/20 08:42 Dose: 1,000 mcg Diltiazem HCl (Cardizem Sr) 90 mg PO BID [facility] Last Admin: 01/06/20 08:44 Dose: 90 mg Enoxaparin Sodium (Lovenox) 40 mg SC 0900,2100 [facility] Last Admin: 01/06/20 08:42 Dose: 40 mg Ergocalciferol (Drisdol) 1.25 mg PO Q7DAYS [facility] Last Admin: 01/03/20 09:31 Dose: Not Given Furosemide (Lasix) 20 mg SLOW IVP NOW [facility] Stop: 01/06/20 13:00 Hydralazine HCl (Apresoline) 10 mg SLOW IVP Q4H PRN PRN Reason: BP > 180/110 Last Admin: 01/05/20 01:14 Dose: 10 mg Cefepime HCl 1 gm/ Sodium (Chloride) 100 mls @ 200 mls/hr IVPB Q8HR [facility] Last Admin: 01/06/20 05:10 Dose: 100 mls Vancomycin HCl 1 gm/ Device 200 mls @ 200 mls/hr IVPB 0100,1300 [facility] Last Admin: 01/06/20 01:08 Dose: 200 mls Sodium Chloride (Normal Saline 0.9%) 1,000 mls @ 70 mls/hr IV .[id number] [facility] Last Admin: 01/05/20 18:25 Dose: 1,000 mls Lisinopril (Zestril) 20 mg PO DAILY [facility] Last Admin: 01/06/20 08:43 Dose: 20 mg Miscellaneous Medication (Pharmacy To Dose) 1 each IVPB PRN PRN PRN Reason: Pharmacy to dose Miscellaneous Medication (Electrolyte Replacement Protocol) 1 each FS ASDIR [facility] Ondansetron HCl (Zofran Odt) 8 mg PO TID PRN PRN Reason: Nausea/Vomiting Pantoprazole Sodium (Protonix) 40 mg PO QAM PRN PRN Reason: acid reflux Last Admin: 01/04/20 09:31 Dose: 40 mg Senna/Docusate Sodium (Senokot S) 1 tab PO BID [facility] Last Admin: 01/06/20 08:42 Dose: 1 tab Sodium Chloride (Flush - Normal Saline) 10 ml IVF Q12HR [facility] Last Admin: 01/06/20 08:45 Dose: Not Given Sodium Chloride (Flush - Normal Saline) 10 ml IVF PRN PRN PRN Reason: Saline Flush Vital Signs & Weight: Vital Signs Temp Pulse Resp BP BP BP Pulse Ox 01/06/20 08:43 160/77 H 01/06/20 07:50 97.9 F 56 L 16 152/87 H 97 01/06/20 03:08 97.4 F L 60 20 123/76 95 01/05/20 23:05 98.1 F 74 20 148/83 H 97 Weight 193 lb 9 oz - Physical Exam General: alert & oriented x3 HEENT: mucus membranes moist Neck: supple neck Cardiac: regular rate and rhythm, S1/S2 Lungs: decreased breath sounds, wheezes Neuro: cranial nerve 2-12 intact Extremities: no edema - Labs Result Diagrams: 01/06/20 04:56 01/06/20 09:48 Troponin/CKMB CK-MB (CK-2) 1.5 ng/mL (0-6.6) 01/02/20 20:56 Troponin I 0.149 ng/mL (< 0.028) H 01/03/20 02:45 - Telemetry Sinus rhythms and dysrhythmias: sinus rhythm - Assessment/Plan Assessment/Plan: 1. Acute on Chronic diastolic HF - will give Lasix 20mg IV x1 now (Na 132 today ) for wheezing with walking; on Coreg, lisinopril; will start fluid restriction 1500ml/day Parox Afib with RVR - remains in SR; On Coreg 25mg BID, ASA 81mg qd, and Diltiazem which will be increased from 60mg to 90mg BID from [facility]; Eliquis 5mg BID is on hold due to Sx consult for Roman's pouch and hx of multiple falls (at least 4 times in last 2 wks per family); 2. CAD with hx of stent in 2012 - on ASA, Coreg, Lisinopril, and Statin 3. HTN - stable with current med 4. HLD - on Statin 5. Anemia - stable 6. Multiple myeloma - 7. Roman's pouch - Surgery consult; no surgical intervention 8. S/p multiple falls due to abnormal balance - per family, the pt has falls more than 4 times in last 2wks. MAR reviewed Pt. seen and eval. by me. 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 This improved after an albuterol treatment and lasix. On my second eval. an hour later he was comfortable and not wheezing.he still remains in NSR.
[2020-01-06] MEDS: Carvedilol 25 MG TAB PO SCH ×2 (12:14→20:52)
[2020-01-06 12:22] LABS: Vancomycin, Trough 18.5 ug/mL
[2020-01-06] MEDS: Sodium Chloride 0.9% 1,000 ML IV SCH (12:43)
--- NOTE | 2020-01-06 16:17 | PDOC.HOSPP ---
- Subjective Encounter Date: 01/06/20 Encounter Time: 09:20 Subjective: Pt seen for followup re: PAF. States he feels well. - Objective Vital Signs & Weight: Vital Signs (12 hours) Temp Pulse Pulse Pulse Resp BP BP 01/06/20 15:31 98.3 F 65 14 01/06/20 11:09 97.3 F L 60 19 01/06/20 09:45 66 64 176/87 H 01/06/20 08:43 160/77 H 01/06/20 07:50 97.9 F 56 L 16 BP BP Pulse Ox Pulse Ox 01/06/20 15:31 151/74 H 98 01/06/20 11:09 111/72 97 01/06/20 09:45 155/86 H 95 01/06/20 08:43 01/06/20 07:50 152/87 H 97 Weight Weight 193 lb 9 oz Most Recent Monitor Data Heart Rate from ECG 65 NIBP 108/64 NIBP BP-Mean 78 Respiration from ECG 14 SpO2 99 I&O: 01/05/20 01/06/20 01/07/20 06:59 06:59 06:59 Intake Total 1090 1260 Output Total 625 600 Balance 465 660 Result Diagrams: 01/06/20 04:56 01/06/20 09:48 Additional Labs: Labs and MARs reviewed by me EKG Reviewed by me: Yes (Tele: NSR) Hospitalist ROS - Review of Systems Cardiovascular: denies: chest pain, palpitations, orthopnea, paroxysmal noc. dyspnea, edema, light headedness Gastrointestinal: denies: nausea, vomiting, abdominal pain, diarrhea, constipation, melena, hematochezia - Medication Medications: Active Medications Generic Name Dose Route Start Last Admin Trade Name Freq PRN Reason Stop Dose Admin Acetaminophen 1,000 mg 01/05/20 17:10 01/06/20 08:42 Tylenol PO 1,000 mg Q6H PRN Administration Moderate to Severe Pain (6-10) Aspirin 81 mg 01/03/20 09:00 01/06/20 08:43 Aspirin Chewable PO 81 mg DAILY [facility] Administration Atorvastatin Calcium 40 mg 01/03/20 21:00 01/05/20 20:12 Lipitor PO 40 mg QPM [facility] Administration Carvedilol 12.5 mg 01/04/20 21:00 01/06/20 12:14 Coreg PO Not Given BID [facility] Cyanocobalamin 1,000 mcg 01/04/20 09:00 01/06/20 08:42 Vitamin B-12 PO 1,000 mcg DAILY [facility] Administration Diltiazem HCl 90 mg 01/05/20 21:00 01/06/20 08:44 Cardizem Sr PO 90 mg BID [facility] Administration Enoxaparin Sodium 40 mg 01/05/20 21:00 01/06/20 08:42 Lovenox SC 40 mg 0900,2100 [facility] Administration Ergocalciferol 1.25 mg 01/03/20 09:00 01/03/20 09:31 Drisdol PO Not Given Q7DAYS [facility] Hydralazine HCl 10 mg 01/03/20 12:09 01/05/20 01:14 Apresoline SLOW IVP 10 mg Q4H PRN Administration BP > 180/110 Cefepime HCl 1 gm/ Sodium 100 mls @ 200 mls/hr 01/03/20 06:00 01/06/20 14:15 Chloride IVPB 100 mls Q8HR [facility] Administration Vancomycin HCl 1 gm/ Device 200 mls @ 200 mls/hr 01/05/20 13:00 01/06/20 12: 42 IVPB 200 mls 0100,1300 [facility] Administration Sodium Chloride 1,000 mls @ 70 mls/hr 01/05/20 17:15 01/06/20 12:43 Normal Saline 0.9% IV 1,000 mls .[id number] [facility] Administration Lisinopril 20 mg 01/04/20 09:00 01/06/20 08:43 Zestril PO 20 mg DAILY [facility] Administration Pantoprazole Sodium 40 mg 01/03/20 08:21 01/04/20 09:31 Protonix PO 40 mg QAM PRN Administration acid reflux Senna/Docusate Sodium 1 tab 01/05/20 21:00 01/06/20 08:42 Senokot S PO 1 tab BID [facility] Administration Sodium Chloride 10 ml 01/05/20 09:00 01/06/20 08:45 Flush - Normal Saline IVF Not Given Q12HR [facility] - Exam General Appearance: awake alert Eye: anicteric sclera ENT: moist mucosa Neck: supple Heart: RRR Respiratory: CTAB Gastrointestinal: soft, non-tender Extremities: no edema Musculoskeletal: no muscle wasting Psychiatric: normal affect, normal behavior Hosp A/P - Plan #CHF exacerbation Pt to receive IV Lasix, starting fluid restriction 1500 ml/h #p. afib now in sinus rhythm continue coreg, cardizem holding apixaban due to hematoma; will start lovenox PPx for now #acute metabolic encephalopathy Improved #Roman pouch -per surgery, likely hematoma considering recent fall -no intervention at this point; surgery will follow peripherally #HTN well controlled; continue current regimen #L shoulder pain shoulder x-ray showing chronic degenerative changes
--- NOTE | 2020-01-06 17:15 | RAD ---
PORTABLE CHEST: 01/06/20 HISTORY: Shortness of breath. COMPARISON: 01/02/20 study. Heart size appears slightly enlarged with atherosclerotic changes of the aorta. Left sided Mediport c atheter is present. Atelectatic changes are seen in the left lung base slightly more prominent than o n the prior exam. IMPRESSION: Left lower lobe atelectasis, slightly increased as compared to the prior study. POS: OFF
[2020-01-06] MEDS: Atorvastatin Calcium 40 MG TAB PO SCH (20:52)
[2020-01-07] MEDS: Acetaminophen 500 MG TAB PO PRN ×2 (00:23→12:59)
[2020-01-07] MEDS: Vancomycin 1 GM in Premix Bag 1 BAG IVPB SCH ×2 (01:42→12:49)
[2020-01-07 05:10] LABS: Anion Gap 13 mmol/L (10-20); BUN (Urea Nitrogen) 28 mg/dL (8.4-25.7); Calc. Creatinine Clearance 69 mL/min (70-130); Calcium 8.1 mg/dL (7.8-10.44); Carbon Dioxide 18 mmol/L (23-31); Chloride 105 mmol/L (98-107); Estimated GFR-MDRD 59; Glucose 126 mg/dL (83-110); Sodium 133 mmol/L (136-145)
[2020-01-07 05:34] LABS: Band 1 % (5-11); Eosinophils 1 % (0-10); Hemoglobin 9.1 g/dL (14.0-18.0); Lymphocytes 7 % (21-51); MDiff Complete? YES; Macrocytosis SLIGHT = 6-15 cells (100X) (0-5/hpf); Mean Corpuscular HGB CONC 32.3 g/dL (32.0-36.0); Mean Corpuscular Hemoglobin 35.3 pg (27.0-31.0); Mean Platelet Volume 10.3 fL (7.4-10.4); Monocytes 6 % (0-10); Neutrophil 85 % (42-75); Platelet Count 132 thou/uL (130-400); Platelet Morphology Comment Appears Adequate; RBC Distribution Width 16.1 % (11.5-14.5); Red Blood Cell (RBC) Count 2.58 mill/uL (4.70-6.10); White Blood Cell (WBC) Count 6.6 thou/uL (4.8-10.8)
[2020-01-07] MEDS: Cefepime 1 GM in Sodium Chloride 0.9% 100 ML IVPB SCH ×2 (06:14→13:55)
[2020-01-07] MEDS ORDERED: Potassium Chloride 20 MEQ TAB PO SCH ×2 (07:30→17:15)
[2020-01-07] MEDS: Enoxaparin Sodium 40 MG/0.4 ML SYRINGE SC SCH (08:38)
[2020-01-07] MEDS: Aspirin Chewable 81 MG TAB PO SCH (08:39)
[2020-01-07] MEDS: Diltiazem HCl SR 90 mg Capsule PO SCH (08:39)
[2020-01-07] MEDS: Carvedilol 25 MG TAB PO SCH (08:39)
[2020-01-07] MEDS: Cyanocobalamin (Vitamin B-12) 1,000 MCG TAB PO SCH (08:39)
[2020-01-07] MEDS: Lisinopril 20 MG TAB PO SCH (08:39)
[2020-01-07] MEDS: Senokot S 8.6-50 MG TAB PO SCH (09:37)
--- NOTE | 2020-01-07 14:13 | PDOC.CPN ---
- Subjective Date: 01/07/20 Time: 14:18 Interval history: The pt seen and examined. No overnight events. No cardiac complaints. Had long conversation about CHF management, especially fluid and salt intakes - Objective Allergies/Adverse Reactions: Allergies Allergy/AdvReac Type Severity Reaction Status Date / Time No Known Allergies Allergy Verified 01/03/20 04:12 Visit Medications: Current Medications Acetaminophen (Tylenol) 1,000 mg PO Q6H PRN PRN Reason: Moderate to Severe Pain (6-10) Last Admin: 01/07/20 12:59 Dose: 1,000 mg Albuterol/Ipratropium (Duoneb) 3 ml NEB [id number] [facility] Last Admin: 01/07/20 13:34 Dose: 3 ml Aspirin (Aspirin Chewable) 81 mg PO DAILY [facility] Last Admin: 01/07/20 08:39 Dose: 81 mg Atorvastatin Calcium (Lipitor) 40 mg PO QPM [facility] Last Admin: 01/06/20 20:52 Dose: 40 mg Bisacodyl (Dulcolax) 10 mg PA Q8H PRN PRN Reason: Constipation Carvedilol (Coreg) 12.5 mg PO BID [facility] Last Admin: 01/07/20 08:39 Dose: 12.5 mg Clonidine (Catapres) 0.1 mg PO Q4H PRN PRN Reason: BP > 180/110 Cyanocobalamin (Vitamin B-12) 1,000 mcg PO DAILY [facility] Last Admin: 01/07/20 08:39 Dose: 1,000 mcg Diltiazem HCl (Cardizem Sr) 90 mg PO BID [facility] Last Admin: 01/07/20 08:39 Dose: 90 mg Enoxaparin Sodium (Lovenox) 40 mg SC 0900,2099 [facility] Last Admin: 01/07/20 08:38 Dose: 40 mg Ergocalciferol (Drisdol) 1.25 mg PO Q7DAYS [facility] Last Admin: 01/03/20 09:31 Dose: Not Given Furosemide (Lasix) 20 mg PO DAILY [facility] Furosemide (Lasix) 20 mg PO NOW [facility] Stop: 01/07/20 16:15 Hydralazine HCl (Apresoline) 10 mg SLOW IVP Q4H PRN PRN Reason: BP > 180/110 Last Admin: 01/05/20 01:14 Dose: 10 mg Cefepime HCl 1 gm/ Sodium (Chloride) 100 mls @ 200 mls/hr IVPB Q8HR [facility] Last Admin: 01/07/20 13:55 Dose: 100 mls Vancomycin HCl 1 gm/ Device 200 mls @ 200 mls/hr IVPB 0100,1300 [facility] Last Admin: 01/07/20 12:49 Dose: 200 mls Lisinopril (Zestril) 20 mg PO DAILY [facility] Last Admin: 01/07/20 08:39 Dose: 20 mg Miscellaneous Medication (Pharmacy To Dose) 1 each IVPB PRN PRN PRN Reason: Pharmacy to dose Miscellaneous Medication (Electrolyte Replacement Protocol) 1 each FS [facility] Ondansetron HCl (Zofran Odt) 8 mg PO TID PRN PRN Reason: Nausea/Vomiting Pantoprazole Sodium (Protonix) 40 mg PO QAM PRN PRN Reason: acid reflux Last Admin: 01/04/20 09:31 Dose: 40 mg Potassium Chloride (Klor-Con 10) 10 meq PO QAM-WM [facility] Senna/Docusate Sodium (Senokot S) 1 tab PO BID [facility] Last Admin: 01/07/20 09:37 Dose: Not Given Sodium Chloride (Flush - Normal Saline) 10 ml IVF Q12HR [facility] Last Admin: 01/07/20 09:37 Dose: Not Given Sodium Chloride (Flush - Normal Saline) 10 ml IVF PRN PRN PRN Reason: Saline Flush Vital Signs & Weight: Vital Signs Temp Pulse Resp BP BP Pulse Ox 01/07/20 13:34 69 16 01/07/20 11:59 98.1 F 69 14 155/101 H 94 L 01/07/20 08:32 94 L 01/07/20 08:00 98.3 F 62 14 184/103 H 94 L 01/07/20 06:45 68 16 01/07/20 04:00 98.1 F 55 L 16 159/85 H 97 Weight 193 lb 9 oz - Physical Exam General: alert & oriented x3 HEENT: mucus membranes moist Neck: supple neck Cardiac: regular rate and rhythm, S1/S2 Lungs: decreased breath sounds - Labs Result Diagrams: 01/07/20 04:30 01/07/20 04:30 Troponin/CKMB CK-MB (CK-2) 1.5 ng/mL (0-6.6) 01/02/20 20:56 Troponin I 0.149 ng/mL (< 0.028) H 01/03/20 02:45 - Telemetry Sinus rhythms and dysrhythmias: sinus rhythm - Assessment/Plan Assessment/Plan: 1. Acute on Chronic diastolic HF - no wheezing with walking today; will start Lasix 20mg qd and Kcl 10 mEq qd from today; on Coreg, lisinopril; on fluid restriction 1200ml/day 2. Parox Afib with RVR - remains in SR; On Coreg 25mg BID, ASA 81mg qd, and Diltiazem 90mg BID; Eliquis 5mg BID is on hold due to Sx consult for Roman's pouch and hx of multiple falls (at least 4 times in last 2 wks per family); 3. CAD with hx of stent in 2012 - on ASA, Coreg, Lisinopril, and Statin 4. HTN - may adjust BP med if no improvement with Lasix 5. HLD - on Statin 6. Anemia - stable 7. Multiple myeloma - 8. Roman's pouch - Surgery consult; no surgical intervention 9. S/p multiple falls due to abnormal balance per family, the pt has falls more than 4 times in last 2wks.- * Dr Jimenez'z pt (Dr Rodriguez at [facility])
[2020-01-07] MEDS ORDERED: Furosemide 20 MG TAB PO SCH (14:15)
[2020-01-07 15:34] VITALS: BP 120/77; TEMP 98.2
--- NOTE | 2020-01-07 16:44 | CON ---
DATE OF CONSULTATION: 01/07/2020 REASON FOR CONSULTATION: Concern regarding possible infection at the raymond hepatis versus hematoma, as well as other associated symptoms. HISTORY OF PRESENT ILLNESS: A 69-year-old whom I had seen in 06/2018 when he presented with a history of multiple myeloma, previously treated with Cytoxan and proteasome inhibitor. At that time, he developed influenza A. he improved and was discharged. He was continued on treatment with Revlimid and now with Decadron. He takes about 3 weeks out of the month. On 12/21 this year, he fell down after tripping in front of his house and hit the side of his face. He came to the emergency room. He was released after symptomatic treatment. Subsequently on 01/01, he developed what he describes as pain in the posterior neck area, right shoulder, which was quite severe. It was so intense that the family members decided to call EMS and bring him to the hospital. On arrival, the ER physician note states that he was having right chest wall pain, but also right neck pain since the injury. The initial pulse was 72, respiratory rate 24, O2 saturations were 99, BP was 234/133, and temperature 101.5. The exam shows the bruising in the right side of his face, which had been seen before. There was tenderness in the midline lateral right side of his neck. There is tenderness in the anterior chest into the lateral side with some bruising there as well. The heart exam and abdominal examination described as within normal limits. Initial findings also included sodium 135, creatinine 1.25. Liver profile normal. Albumin 3.6 and globulin 2.5. White cell count 13.6, hemoglobin 11, and platelets 199 with 57% neutrophils. Urinalysis was essentially normal. COVID was not detected. The patient had extensive imaging studies performed. Initially, a chest CT with angiogram was done, which showed no evidence of pulmonary embolism. There was a hyperdensity adjacent to Layla's pouch with the possibility of perihepatic hematoma. A dedicated abdomen and pelvis CT showed mixed attenuation focus in Morison's pouch adjacent to the right hepatic lobe, measuring 6.3 x 3.6, perihepatic hematoma was favored. Scattered lytic foci from his multiple myeloma were seen. Currently, Mr. Vora is ready to go home. He is all dressed up. He apparently had some issues with his breathing status related to volume overload and had to be treated with diuretics with a quite prompt improvement. Still having some pain in the neck area, but not nearly as much as before. Bearing in mind that he is on analgesia as needed. Denies any headaches. No visual symptoms, sore throat, odynophagia, or dysphagia. Still with neck pain when I turned his neck to the right and particularly to the left. He is not coughing. No dyspnea any longer. The right lateral chest pain has improved. He has no abdominal pain and never actually had abdominal pain. No genitourinary symptoms. He is not having any constipation or diarrhea. No joint symptoms. No neurological symptoms. MEDICAL HISTORY: Includes: 1. Multiple myeloma, not in remission, on Revlimid and Decadron. 2. Influenza. 3. Hypertension. 4. Cardiomyopathy with stents. 5. Sick sinus syndrome. 6. Pancreatitis. 7. Coronary artery disease. 8. Port placement for chemotherapy. SURGICAL HISTORY: 1. Appendectomy. 2. Cholecystectomy. 3. Splenectomy. 4. Removal of part of the pancreas. 5. Hernia repair. SOCIAL HISTORY: Lives in the area. Former smoker. . No alcoholic beverage use. ALLERGIES: NONE. CURRENT MEDICATIONS: 1. DuoNeb. 2. Aspirin. 3. Lipitor. 4. Dulcolax. 5. Coreg. 6. Catapres. 7. Cardizem. 8. Lovenox. 9. Drisdol. 10. Lasix. 11. Vancomycin. PHYSICAL EXAMINATION: VITAL SIGNS: He had a temperature of 101.8 one day after admission and he had 101 on arrival and he has been afebrile since, BP 150/101, respirations 14, heart rate 69, and saturating 94 on room air. SKIN: Bruising in the right side of the face, which is improved compared with previous. There is a little bit of bruising right side of the chest, which is improving as well. No lymphadenopathy. HEENT: Ocular movements conjugate. Oral cavity with numerous missing teeth, remainder ones with quite a bit of decay and gum disease. NECK: Supple. No jugular vein distention. There is some tenderness on range of motion. LUNGS: Symmetric, clear breath sounds. HEART: S1 and S2. Regular rate without murmurs. No S3 or S4. ABDOMEN: Soft, not distended or tender. No ascites. No bladder distention. No genital abnormalities. EXTREMITIES: No joint inflammatory activity outside the involved area. No edema any longer. Pulses 1+ in dorsalis pedis. Plantar responses are flexor. Moves extremities equally. NEUROLOGIC: He is awake and oriented, follows commands. LABORATORY DATA: White cell count is down to 6.6, hemoglobin 9.1, platelets 132 , and 85% neutrophils. INR 1.1. Sodium 133, creatinine 1.22, and calcium 8.1. Microbiology with negative blood cultures at 48 hours. Urine culture, no growth at 36 hours. ASSESSMENT: 1. Multiple myeloma, on Revlimid and Decadron. 2. Fall, accidental with numerous areas of bruising in the face and chest. 3. New onset of neck pain and chest pain, which prompted admission. After admission, a few other abnormalities were noted including low-grade temperature elevation, which lasted briefly. The abnormalities on the imaging studies, particularly the concern with the CT of abdomen abnormality. 4. He had [id number] neutrophilia as well. DISCUSSION: Patients with multiple myeloma are immunosuppressed, having a defect mostly in production of antibodies due to the abnormal plasma cell clone and then superimposed cellular dysfunction associated with the treatment. He did have fever on arrival, so there is naturally a concern with a bacterial infection. The blood cultures have not yielded any pathogen, though we have all those findings in the imaging studies that beg an explanation. The Roman's pouch is the virtual space between the liver and the right kidney, typically not seen. In this case there is an area there has density that could be consistent with blood, so conceivably there might be some accumulation of hematoma there. In addition to that, the patient probably had some small volume ascites, which can also be seen as fluid in Roman's pouch. He did have volume overload, which became evident per development of respiratory symptoms, which was treated successfully. The neck symptoms are improving and that probably is related to the fall as well. So, everything seems to be related to this episode that brought him into the emergency room on 12/21. At this point, I would discontinue antimicrobial therapy. I do not think he needs any further imaging of the neck unless the pain remains, and in that case, he would require an MRI of the neck/C-spine. If the fever returns after discharge planning, then would have to reassess the abnormalities detected; for example he may have been transiently bacteremic and then colonized the area in the Roman's pouch and then may develop recurrence of the inflammatory process down the road. Otherwise, I would not pursue any further testing. I think he is ready to be discharged at this point in time off antimicrobial therapy. Job ID: [id number] [id number]
--- NOTE | 2020-01-08 04:52 | DIS ---
DATE OF ADMISSION: 01/02/2020 DATE OF DISCHARGE: 01/07/2020 PRIMARY CARE PROVIDER: Dr. Richardson Stephens. DISCHARGE DIAGNOSES: 1. Atrial fibrillation with rapid ventricular response. 2. Hyponatremia. 3. Hypokalemia. 4. Fall, accidental. 5. Morison's pouch hematoma. 6. Vitamin B12 deficiency. CONDITION: Stable. I assessed Mr. Vora on the day of discharge. He denies any chest pain or shortness of breath. Vital signs are stable. S1 and S2 are heard, regular. Lungs are clear to auscultation bilaterally. CONSULTATIONS DURING THIS HOSPITALIZATION: Cardiology, Dr. Rodriguez. General Surgery, Dr. Caballero. Infectious Diseases, Dr. Downey. DISCHARGE MEDICATIONS: 1. Vitamin D3 is 50,000 units every week. 2. Aspirin 81 mg daily. 3. Lipitor 40 mg in the evening. 4. Celexa 10 mg daily. 5. Coreg 12.5 mg 2 times a day, dose was decreased during this hospitalization. 6. Vitamin B12 of 1000 mcg daily. 7. Cardizem SR 90 mg 2 times a day, started during this hospitalization. 8. Lasix dose decreased to 20 mg daily. 9. Lisinopril started at 20 mg daily during this hospitalization. 10. Nexium 40 mg daily as needed. 11. Zofran 8 mg 3 times a day as needed. Patient has been advised to follow up with Cardiology Service to discuss resumption of Eliquis given fall risk. He was also advised to follow up with Oncology Service regarding resumption of Revlimid and dexamethasone. DISCHARGE DESTINATION: Home with outpatient Physical Therapy and Occupational Therapy. ACTIVITY: As tolerated. DIET: Heart-healthy and low-sodium. HOSPITAL COURSE: Mr. Vora is a pleasant 69-year-old gentleman, who was admitted to [facility] on January 02, 2020, following a fall. He was also in atrial fibrillation with rapid ventricular response. CT angiogram of the chest did not show any evidence of pulmonary embolism. He had indeterminate hyperdensity adjacent to Layla's pouch. CT scan of the abdomen and pelvis was also done and was suspicious for perihepatic hematoma. He also had fever and was therefore started on antibiotics. He was started on diltiazem drip. He was seen by Cardiology Service. He was eventually transitioned to oral Cardizem. Anticoagulation was not started because of the perihepatic hematoma. He was also seen by General Surgery Service for perihepatic hematoma. They recommended expectant management and no surgical intervention. There was also the consideration that biopsy and/or aspiration of the hematoma may provide for bacterial inoculation and further complications. He continued to improve clinically. He was dehydrated towards the end of the hospitalization. His diuretic dose was decreased and he improved. He was seen by Infectious Diseases service on the day of discharge. Antibiotics have been discontinued. He has been advised to follow up with Infectious Disease Service in 2 weeks. Final urine culture is negative. Preliminary blood cultures did not show any growth at 48 hours. He is advised to follow up with primary care provider for final blood culture report. He has also been advised to check his blood pressure and heart rate 3 times a day and show the readings to his primary care provider and to have his chem-7 checked in 5 to 7 days through primary care provider's office. Many thanks for allowing me to participate in your patient's care. Please feel free to contact me with any questions or concerns. TIME SPENT: Total amount of time spent coordinating this discharge: Thirty-five minutes. Job ID: [id number]
[2020-01-08] MEDS ORDERED: Potassium Chloride 10 MEQ TAB PO SCH (08:00)
[2020-01-08] MEDS ORDERED: Furosemide 20 MG TAB PO SCH (09:00)
--- NOTE | 2020-01-09 04:56 | PQF ---
CLINICAL DOCUMENTATION CLARIFICATION FORM: Dear : Efrain Rios Date / Time: 01/09/2020 2980 Please exercise your independent, professional judgment in responding to the clarification form. Clinical indicators are provided on the bottom of this form for your review Please check appropriate box(es) to clarify if the following diagnosis has been ruled in our ruled out: Sepsis [ ] Ruled in diagnosis [ ] Continue to treat [ ] Resolved [ x ] Ruled out diagnosis [ ] Improving [ ] Cannot rule out diagnosis [ ] Other diagnosis [ ] Unable to determine Physician Signature: Date/Time: For continuity of documentation, please document condition throughout progress notes and discharge summary. Thank You. To be completed by CDI/Coding staff for physician review: Present Clinical Indicators - Signs / Symptoms / Labs Results and Location in Medical Record [X] WBC 13.6, Plt counbt 199, Neutrophils 57.7 Band 2 Laboratory 01/01 [X] Blood culture: no growth at 36 hrs Microbiology 01/01 [X] BP 234/133, Pulse 200, Resp 24, Temp 101.5 Vital signs 01/01 [X] Developed temperature of 101.5 H&P p1 01/01 Dr Mehta [X] Sepsis, source unclear H&P p2 01/01 Dr Mehta [X] patient confused PN 01/04 [X] Acute metabolic encephalopathy PN 01/05 Present Risk Factors Results and Location in Medical Record [X] 69 year-old Male H&P p1 01/01 Dr Mehta [X] Multiple myeloma H&P p1 01/01 Dr Mehta [X] HTN H&P p1 01/01 Dr Mehta [X] CHF H&P p1 01/01 Dr Mehta [X] Old MD H&P p1 01/01 Dr Mehta Present Treatments Results and Location in Medical Record [X] IV Vancomycin 2 gm JUL 09 [X] IVF NS 1L JUL 09 [X] IV Cefepime 1gm JUL 09 [X] Blood culture Microbiology 01/01 [X] ID consult Consult Dr Downey 01/06 [X] Septic work up H&P p1 01/01 Dr eMhta CDS/Facility Security Officer Signature: Mercedez Gonzalesdemario Phone #: [phone] Date/Time: 01/09/2020 0456 This is a permanent part of the Medical Record [facility]
== END 2020-01-07 17:57 | disposition home or self-care (01) | DRG 441 ==
LOC: ERS 18:52 → IMCU/EMU 23:59 → 2SE 01-04 20:57
PROVIDERS: ADMIT Internal Medicine; ATTEND Internal Medicine
DX: K76.89 Other specified diseases of liver (principal); I50.33 Acute on chronic diastolic (congestive) heart failure; G93.41 Metabolic encephalopathy; C90.00 Multiple myeloma not having achieved remission; I42.9 Cardiomyopathy, unspecified; E87.1 Hypo-osmolality and hyponatremia; Z20.828 Contact with and (suspected) exposure to other viral communicable diseases; I48.0 Paroxysmal atrial fibrillation; K59.00 Constipation, unspecified; R29.6 Repeated falls; I49.5 Sick sinus syndrome; I25.10 Atherosclerotic heart disease of native coronary artery without angina pectoris; E87.6 Hypokalemia; E53.8 Deficiency of other specified B group vitamins; E86.0 Dehydration; I11.0 Hypertensive heart disease with heart failure; Z86.711 Personal history of pulmonary embolism; Z87.891 Personal history of nicotine dependence; Z91.81 History of falling; Z90.49 Acquired absence of other specified parts of digestive tract; Z79.899 Other long term (current) drug therapy; Z79.82 Long term (current) use of aspirin; Z79.01 Long term (current) use of anticoagulants; Z79.52 Long term (current) use of systemic steroids; Z95.5 Presence of coronary angioplasty implant and graft
CPT/HCPCS: 36415; 70450; 71045; 71275; 72125; 74176; 76705; 80048; 80053; 80202; 81001; 81003; 81015; 82550; 82553; 83605; 83735; 84145; 84484; 85025; 85610; 85730; 87040; 87086; 93005; 93306; 93970; 94640; 96361; 96365; 96366; 96368; 96375; 96376; 99292; J0360; J0692; J1160; J1650; J1940; J2270; J3370; J3475; J3490; J7030; J7620; Q9967; U0002

== ENCOUNTER 2020-02-20 05:32 | Inpatient (IN) | payer MEDICARE, BC, OTHER ==
[2020-02-20 06:09] LABS: #Eosinphils 0.2 thou/uL (0.0-0.7); #Lymphocytes 2.2 thou/uL (1.20-3.40); #Monocytes 1.4 thou/uL (0.11-0.59); %Eosinophils 2.4 % (0.0-10.0); %Lymphocytes 22.3 % (21.0-51.0); %Monocytes 14.6 % (0.0-10.0); %Neutrophils 60.7 % (42.0-75.0); Hemoglobin 11.9 g/dL (14.0-18.0); Mean Corpuscular HGB CONC 32.1 g/dL (32.0-36.0); Mean Corpuscular Hemoglobin 34.4 pg (27.0-31.0); Mean Platelet Volume 10.1 fL (7.4-10.4); Platelet Count 220 thou/uL (130-400); RBC Distribution Width 15.5 % (11.5-14.5); Red Blood Cell (RBC) Count 3.45 mill/uL (4.70-6.10); White Blood Cell (WBC) Count 9.8 thou/uL (4.8-10.8)
[2020-02-20 06:28] LABS: ALT (SGPT) 35 U/L (8-55); AST (SGOT) 28 U/L (5-34); Albumin 3.4 g/dL (3.4-4.8); Alkaline Phosphatase 69 U/L (40-110); Anion Gap 14 mmol/L (10-20); BUN (Urea Nitrogen) 24 mg/dL (8.4-25.7); Bilirubin, Total 0.8 mg/dL (0.2-1.2); Calc. Creatinine Clearance 0 mL/min (70-130); Calcium 8.1 mg/dL (7.8-10.44); Carbon Dioxide 25 mmol/L (23-31); Chloride 101 mmol/L (98-107); Estimated GFR-MDRD 55; Globulin 2.7 g/dL (2.4-3.5); Glucose 141 mg/dL (83-110); Potassium 3.6 mmol/L (3.5-5.1); Protein, Total 6.1 g/dL (5.8-8.1); Sodium 136 mmol/L (136-145)
[2020-02-20] MEDS ORDERED: Acetaminophen 500 MG TAB ONE (06:30)
[2020-02-20 06:57] LABS: CKMB 1.4 ng/mL (0-6.6)
[2020-02-20] MEDS ORDERED: Aspirin Chewable 81 MG TAB ONE ×2 (07:16→07:31)
[2020-02-20] MEDS ORDERED: Digoxin 0.5 MG/2 ML AMP ONE ×2 (07:16→07:23)
--- NOTE | 2020-02-20 07:33 | CT ---
PRELIMINARY REPORT/[facility]/EMERGENCY AFTER HOURS PROCEDURE EXAM: CT Head Without Intravenous Contrast. CLINICAL HISTORY: PREVIOUS IMAGES HAVE BEEN SENT...Additional history obtained from EMS, Patient presents from home fol lowing a syncopal episode. He reports that he got up to urinate, and after urinating he passed out. His reported that he was unresponsive for several minutes. When EMS arrived, he was awake and al ert. Patient reports that he has passed out more than once over the last 48 hours. He complains of pain only in his neck diffusely that has been present off and on for about a month. Patient denies na usea, vomiting, diarrhea, fever, and upper respiratory symptoms. Patient is currently being treated for multiple myeloma with oral chemotherapy TECHNIQUE: Axial computed tomography images of the head/brain without intravenous contrast. COMPARISON: January 02, 2020 FINDINGS: BRAIN: No acute intraparenchymal hemorrhage. No mass lesion. No CT evidence for acute territorial infarct. N o midline shift or extra-axial collection. VENTRICLES: No hydrocephalus. ORBITS: The orbits are unremarkable. SINUSES AND MASTOIDS: The paranasal sinuses and mastoid air cells are clear. SOFT TISSUES: No significant facial or scalp soft tissue swelling evident. No radiopaque foreign body is seen. BONES: No acute skull fracture. IMPRESSION: No acute intracranial abnormality. ELECTRONICALLY SIGNED BY: Efrain Goncalves MD Feb 20, 2020 6:31:56 AM CDT This report is intended for review by the ordering physician only, in accordance of law. If you recei ve this report in error, please call [facility] at [phone]. FINAL REPORT Exam: Head CT without contrast HISTORY: Syncope COMPARISON: none FINDINGS: Hemorrhage: No intraparenchymal hemorrhage or extra-axial hematoma. Brain parenchyma: Cortical vickers-white matter differentiation is preserved. No mass effect or midline shift. Basilar cisterns are patent.Scattered hypodensities due to chronic small vessel ischemic changes Ventricular system: Ventricles and sulci are patent and symmetric. Calvarium: Intact. Sinuses and mastoid air cells: Adequate aeration. IMPRESSION: 1. This report is in agreement with initial report by [facility]. 2. No acute intracranial process. Transcribed Date/Time: 02/20/2020 8:08 AM
--- NOTE | 2020-02-20 07:36 | CT ---
PRELIMINARY REPORT/[facility]/EMERGENCY AFTER HOURS PROCEDURE EXAM: CT Cervical Spine Without Intravenous Contrast. CLINICAL HISTORY: PREVIOUS IMAGES SENT...Additional history obtained from EMS, Patient presents from home following a s yncopal episode. He reports that he got up to urinate, and after urinating he passed out. His reported that he was unresponsive for several minutes. When EMS arrived, he was awake and alert. Smita ent reports that he has passed out more than once over the last 48 hours. He complains of pain only in his neck diffusely that has been present off and on for about a month. Patient denies nausea, vomi ting, diarrhea, fever, and upper respiratory symptoms. Patient is currently being treated for multiple myeloma with oral chemotherapy TECHNIQUE: Axial computed tomography images of the cervical spine without intravenous contrast. Sagittal and cor onal reformations performed. COMPARISON: January 02, 2020 FINDINGS: BONES: No acute fracture. Focal areas of lytic change throughout the cervical spine unchanged in the short interval. Consistent with the patient's history of multiple myeloma. Bony alignment is anatomic. DISCS / DEGENERATIVE CHANGES: Significant degenerative changes at the intervertebral disc and facet level again noted. Some distor tion in the normal cervical lordosis on a chronic basis. No significant central canal or neural foraminal stenosis. SOFT TISSUES: No prevertebral soft tissue swelling. No apical pneumothorax. IMPRESSION: No posttraumatic abnormalities noted acutely. Spinal changes reflect the patient's history of multip le myeloma. ELECTRONICALLY SIGNED BY: Efrain Goncalves MD Feb 20, 2020 6:30:38 AM CDT This report is intended for review by the ordering physician only, in accordance of law. If you recei ve this report in error, please call [facility] at [phone]. FINAL REPORT Exam: CT cervical spine without contrast HISTORY: Trauma. Pain. COMPARISON: None FINDINGS: No craniocervical dissociation. Appropriate alignment of the lateral masses of C1 and C2. Intact odon toid process Appropriate alignment of the facets. Stable anterolisthesis of C4 upon C5. Soft tissue neck structures: No mass, lymphadenopathy or hematoma. No prevertebral soft tissue swelli ng. Upper mediastinum and lung apices: Unremarkable Central spinal canal: Neural foramina and central spinal canal are patent. Evaluation is limited by t echnique Vertebral bodies: Cervical spine vertebral body height is maintained. No fracture. Stable lucencies, compatible with history of multiple myeloma. IMPRESSION: 1. This report is in agreement with initial report by [facility]. 2. No evidence of fracture. Additional findings as above. Transcribed Date/Time: 02/20/2020 8:10 AM
[2020-02-20 09:16] LABS: Troponin I 0.028 ng/mL (< 0.028)
--- NOTE | 2020-02-20 11:37 | PDOC.HHP ---
Hospitalist HPI - History of Present Illness syncope History of Present Illness: PCP: Kat The patient is a 69-year-old male with past medical history significant for multiple myeloma currently taking chemo, hypertension, CHF, and MS who presents to the ER today after multiple syncopal episodes at home. He has a history of falls but they sound as if they had were mechanical falls in the past. The past few days he states he has actually been passing out and it occurs mainly after standing or changing positions. The patient describes it as a lightheaded feeling followed by passing out. His states that he would sit there with a dazed look on his face and not hear her talk to him. He states that the most recent event happened after he got up to urinate this morning and after urinating he passed out. His states that she has possibly not been giving him his medication correctly and would like assistance with medication education. She states that last night she gave him his dose of Coreg at 7 PM and then at 2 AM he had a high blood pressure so she gave him another dose of Coreg. She has not been giving him his diltiazem as his blood pressure has been low at times. Patient also has not been receiving his lisinopril or Lasix. They state that the Lasix is prescribed as needed and they have not been taking it because they do not want his potassium to drop and he has had no edema. Patient was recently admitted to [facility] on January 30 because his blood pressure was systolically in the 200s. The patient was admitted to this hospital at the beginning of January for falls but at that time it sounded more mechanical than these passing out episodes he is currently experiencing. They did complete an echo at that time that showed his EF at 60 to 65% with mild LVH. Patient has been wearing compression stockings at home. ED Course: Today in the ER they completed lab work, EKG, and the head and neck CT. He was given aspirin 325 mg oral, digoxin 0.5 mg IV, 1.5 L of normal saline, and Tylenol 1 g oral. Hospitalist ROS - Review of Systems Constitutional: reports: other (syncopal episodes with standing) All other systems reviewed; all pertinent +/- noted in HPI/Subj - Medication Medications: Patient reports no known drug allergies however states he does not like to take morphine as it makes him "goofy". Current medications: Eliquis 5 mg 2 times a day Citalopram 10 mg a day Aspirin 81 mg daily Carvedilol 12.5 mg twice a day Atorvastatin 40 mg once a day Valacyclovir 500 mg once a day Cyclobenzaprine 10 mg once a day Diltiazem 90 mg twice a day Furosemide 20 mg as needed Esomeprazole magnesium 20 mg once a day D3 50,000 units once a week Hospitalist History - Past Medical History Source: patient, family Cardiac: reports: HTN, MS Gastrointestinal: reports: Other (Pancreatitis) Heme/Onc: reports: Other (Multiple myeloma with chemotherapy) - Past Surgical History Other Surgical History: Cardiac stents, Mediport placement - Family History Family History: reports: no pertinent history - Social History Smoking Status: Former smoker Alcohol: reports: None Drugs: reports: none Living Situation: With Family Activity level: uses cane/walker - Exam General Appearance: NAD, awake alert General - other findings: Pale Heart: no murmur, no gallops, no rubs, normal peripheral pulses, irregular (Tachycardic) Respiratory: CTAB, no wheezes, no rales, no ronchi, normal chest expansion Gastrointestinal: soft, non-tender, non-distended, normal bowel sounds Extremities: no cyanosis, no edema Neurological: no focal deficits Musculoskeletal: normal tone Psychiatric: normal affect, normal behavior, A&O x 3 Hospitalist Results - Labs Result Diagrams: 02/21/20 04:22 02/21/20 04:22 Lab results: WBC 9.8 thou/uL (4.8-10.8) 02/20/20 05:51 Hgb 11.9 g/dL (14.0-18.0) L 02/20/20 05:51 Hct 36.9 % (42.0-52.0) L 02/20/20 05:51 MCV 107.0 fL (78.0-98.0) H 02/20/20 05:51 Plt Count 220 thou/uL (130-400) 02/20/20 05:51 Neutrophils % 60.7 % (42.0-75.0) 02/20/20 05:51 Sodium 136 mmol/L (136-145) 02/20/20 05:51 Potassium 3.6 mmol/L (3.5-5.1) 02/20/20 05:51 Chloride 101 mmol/L (98-107) 02/20/20 05:51 Carbon Dioxide 25 mmol/L (23-31) 02/20/20 05:51 BUN 24 mg/dL (8.4-25.7) 02/20/20 05:51 Creatinine 1.28 mg/dL (0.7-1.3) 02/20/20 05:51 Glucose 141 mg/dL (83-110) H 02/20/20 05:51 Calcium 8.1 mg/dL (7.8-10.44) 02/20/20 05:51 Total Bilirubin 0.8 mg/dL (0.2-1.2) 02/20/20 05:51 AST 28 U/L (5-34) 02/20/20 05:51 ALT 35 U/L (8-55) 02/20/20 05:51 Alkaline Phosphatase 69 U/L (40-110) 02/20/20 05:51 CK-MB (CK-2) 1.4 ng/mL (0-6.6) 02/20/20 05:51 Troponin I 0.028 ng/mL (< 0.028) 02/20/20 08:29 Serum Total Protein 6.1 g/dL (5.8-8.1) 02/20/20 05:51 Albumin 3.4 g/dL (3.4-4.8) 02/20/20 05:51 - EKG Interpretation EKG: A. fib with RVR 116 bpm - Radiology Interpretation CT scan - head Status: report reviewed by me Additional Comment: Cervical spine CT impression: no posttraumatic abnormalities noted acutely. Spinal changes reflect the patient's history of multiple myeloma. Brain CT impression: No acute intraparenchymal hemorrhage. No mass lesion. No CT evidence for acute territorial infarct no midline shift or extra-axial collection. No acute intracranial process. Hospitalist H&P A/P - Plan Plan: #Syncope Monitor on telemetry Orthostatic vital signs Continue compression stockings #Atrial fibrillation with RVR Continue patient's home medication of diltiazem Patient currently atrial fibrillation but at a controlled rate Continue monitor on telemetry Previous admission required diltiazem drip, we will continue to monitor to see if this will be necessary again #Hypomagnesemia Replace magnesium Repeat labs in a.m. #Hypertension Continue monitor vital signs every 4 hours Restart home medications #Multiple myeloma receiving chemotherapy Consult oncology, patient to receive chemotherapy on along with ster oids VTE prophylaxis: Patient currently on Eliquis and SCDs ordered CODE STATUS: Full Surrogate decision-maker is his , Julianna
[2020-02-20 11:53] VITALS: BMI 25.2
[2020-02-20] MEDS ORDERED: Magnesium Sulfate 4 GM in Sodium Chloride 0.9% 250 ML 250 ML IVPB SCH (12:30)
[2020-02-20 12:31] LABS: Troponin I 0.048 ng/mL (< 0.028)
[2020-02-20] MEDS ORDERED: Dextrose 5 % And 0.9 % NaCl 1,000 ML IV SCH (12:45)
[2020-02-20 17:30] LABS: SARS-CoV-2 MS2 Positive; SARS-CoV-2 N Gene Negative; SARS-CoV-2 S Gene Negative; SARS-CoV-2 by NAA Not Detected (NotDetected); SARS-CoV-2 orf1ab Negative
[2020-02-20] MEDS: Acetaminophen 325 MG TAB PO PRN (20:28)
[2020-02-21] MEDS ORDERED: Carvedilol 3.125 MG TAB PO SCH ×2 (00:15→08:00)
[2020-02-21] MEDS ORDERED: Labetalol HCl 100 MG/20 ML VIAL SLOW IVP SCH (02:00)
[2020-02-21 04:39] LABS: #Basophils 0.1 thou/uL (0.0-0.2); #Eosinphils 0.2 thou/uL (0.0-0.7); #Lymphocytes 2.7 thou/uL (1.20-3.40); #Monocytes 1.3 thou/uL (0.11-0.59); #Neutrophils 4.5 thou/uL (1.40-6.50); %Basophils 0.8 % (0.0-1.0); %Eosinophils 2.5 % (0.0-10.0); %Lymphocytes 31.2 % (21.0-51.0); %Monocytes 14.7 % (0.0-10.0); %Neutrophils 50.9 % (42.0-75.0); Hemoglobin 10.8 g/dL (14.0-18.0); Mean Corpuscular HGB CONC 32.1 g/dL (32.0-36.0); Mean Platelet Volume 9.7 fL (7.4-10.4); Platelet Count 202 thou/uL (130-400); RBC Distribution Width 15.5 % (11.5-14.5); White Blood Cell (WBC) Count 8.8 thou/uL (4.8-10.8)
[2020-02-21 05:04] LABS: Anion Gap 11 mmol/L (10-20); BUN (Urea Nitrogen) 15 mg/dL (8.4-25.7); Calc. Creatinine Clearance 80 mL/min (70-130); Calcium 7.8 mg/dL (7.8-10.44); Carbon Dioxide 23 mmol/L (23-31); Chloride 104 mmol/L (98-107); Estimated GFR-MDRD 70; Glucose 106 mg/dL (83-110); Sodium 135 mmol/L (136-145)
[2020-02-21] MEDS ORDERED: Potassium Chloride 20 MEQ TAB PO SCH (07:30)
[2020-02-21] MEDS: Acetaminophen 325 MG TAB PO PRN ×2 (08:22→15:53)
[2020-02-21] MEDS ORDERED: Lisinopril 20 MG TAB PO SCH (09:00)
[2020-02-21] MEDS ORDERED: Carvedilol 6.25 MG TAB PO SCH (09:30)
[2020-02-21] MEDS ORDERED: Apixaban 5 MG TAB PO SCH (09:30)
[2020-02-21] MEDS ORDERED: Diltiazem HCl SR 90 mg Capsule PO SCH (09:30)
--- NOTE | 2020-02-21 11:48 | PDOC.HOSPP ---
- Subjective Encounter Date: 02/21/20 Encounter Time: 10:00 Subjective: Patient is seen today for follow-up of orthostatic hypotension and multiple syncopal episodes. He had no overnight events. He is currently in sinus rhythm and has been since last night. He states he is feeling well and had no episodes of lightheadedness. Cardiology was in his room prior to me seeing him and offered their recommendations.. - Objective Vital Signs & Weight: Vital Signs (12 hours) Temp Pulse Resp BP BP BP BP 02/21/20 11:20 137/77 124/64 02/21/20 10:03 187/108 H 02/21/20 07:12 99.0 F 60 18 187/108 H 02/21/20 05:10 167/90 H 02/21/20 03:39 192/100 H 02/21/20 02:03 192/100 H 02/21/20 00:00 98.2 F 70 17 BP Pulse Ox 02/21/20 11:20 73/52 L 02/21/20 10:03 02/21/20 07:12 98 02/21/20 05:10 02/21/20 03:39 02/21/20 02:03 02/21/20 00:00 196/95 H 97 Weight Weight 191 lb 6 oz I&O: 02/20/20 02/21/20 02/22/20 06:59 06:59 06:59 Output Total 1250 900 Balance -1250 -900 Result Diagrams: 02/21/20 04:22 02/21/20 04:22 EKG Reviewed by me: Yes Hospitalist ROS - Medication Medications: Active Medications Generic Name Dose Route Start Last Admin Trade Name Freq PRN Reason Stop Dose Admin Acetaminophen 650 mg 02/20/20 11:31 02/21/20 08:22 Acetaminophen 325 Mg Tab PO 650 mg Q4H PRN Administration Headache/Fever/Mild Pain (1-3) Apixaban 5 mg 02/21/20 09:30 02/21/20 10:03 Apixaban 5 Mg Tab PO 02/21/20 12:00 5 mg NOW VIJAY Administration Carvedilol 6.25 mg 02/21/20 09:30 02/21/20 10:03 Carvedilol 6.25 Mg Tab PO 02/21/20 12:00 6.25 mg NOW VIJAY Administration Diltiazem HCl 90 mg 10/21/20 09:30 02/21/20 10:04 Diltiazem Hcl Sr 90 Mg Capsule PO 02/21/20 12:00 90 mg NOW VIJAY Administration - Exam General Appearance: NAD, awake alert Heart: RRR, no murmur, no gallops, no rubs, normal peripheral pulses Respiratory: CTAB, no wheezes, no rales, no ronchi, normal chest expansion Gastrointestinal: soft, non-tender, non-distended, normal bowel sounds Extremities: no edema Hosp A/P - Plan Cardiology recommended patient have higher compression stockings, will attempt to facilitate this while in the hospital We will restart patient on his regular home medications and see how well he tolerates this today without any additional medications We will provide education to him and his over home medication administration Oncology visited with patient yesterday and cleared him to take his chemotherapy and steroids tomorrow Patient hypokalemic this morning, potassium replaced, will recheck level this afternoon Hypomagnesemia has been resolved
--- NOTE | 2020-02-21 15:08 | CON ---
DATE OF CONSULTATION: 02/21/2020 INDICATION FOR CONSULTATION: This is a 69-year-old gentleman with multiple syncopal episodes. HISTORY OF PRESENT ILLNESS: This is a very pleasant 69-year-old gentleman who has had a history of atrial fibrillation in the past with rapid ventricular response. He recently was in the hospital. I saw him back in January of this year; at which time, he had presented with atrial fibrillation with rapid ventricular response. He then converted back to sinus rhythm. He has had a long history of quite some time now of multiple myeloma. He has been doing relatively well. Recently, he was down to [facility] for routine checkup and prior to being discharged there, his blood pressure was significantly elevated. He was kept overnight. He has been on beta-blockers in the past. He continues to be on beta blockers. He also was on lisinopril and also diltiazem. His says she has not given his medicines appropriately. Apparently, he has had significant hypotension with the lisinopril, but recently he has had some episodes of syncope after he was standing up by the bed to go the bathroom, and he just fell backwards. He also was on the toilet and got up and went back to the bed and another time and then also again had a syncopal episode. It does not occur every time after he urinates, but he does appear to have orthostatic hypotension. His blood pressure yesterday measured 145/86 while lying and then 119/76 with sitting and then 97/76 while standing. It was difficult to determine exactly how much is involved which is orthostatic hypotension whether he is somewhat dehydrated or because the change in his medication with the not giving the medications appropriately. She gives Coreg and if the blood pressure remains elevated; sometimes, he gets a repeat dose of Coreg just a few hours later. The tells me he has had some problems with lisinopril that significantly lowers his blood pressure, and he has not been taking this medication at home. PAST MEDICAL HISTORY: Significant for multiple myeloma, coronary artery disease. He has had myocardial infarction, angioplasty, stent placement. He has had a history of diastolic heart failure, pancreatitis, and hypertension. He has had appendectomy, cholecystectomy, and splenectomy. He has had a partial pancreas removal. He had a hernia repair. He had a MediPort placed in the left upper chest due to his multiple myeloma. He has had atrial fibrillation as noted above. SOCIAL HISTORY: No history of alcohol or tobacco abuse. He resides at home. He smoked a pipe in the past. REVIEW OF SYSTEMS: A 12-point review of systems is unremarkable except what is noted in the History of Present Illness. MEDICATIONS: Prior to admission, include: 1. Zofran. 2. Nexium. 3. Coreg. 4. He was taking 25 mg on a p.r.n. basis, but now has been scheduled back on 3.125 mg b.i.d. 5. Lipitor 40 mg a day. 6. Aspirin 81 mg a day. 7. Celexa 10 mg a day. 8. Dexamethasone. 9. Lasix. He was taking 40 mg twice a day. We will decrease this medication. He may be somewhat dehydrated. 10. Vitamin D3. 11. Eliquis 5 mg b.i.d. ALLERGIES: NONE. FAMILY HISTORY: Noncontributory. PHYSICAL EXAMINATION: GENERAL: Reveals a well-developed, well-nourished gentleman, who is in no acute distress at this time. VITAL SIGNS: Blood pressure is 192/100, respiratory rate 17, heart rate is in the 70s. He is afebrile. HEENT: Shows head to be normocephalic and atraumatic. Carotid pulses are present. There were no bruits. CHEST: Clear to auscultation without rales, rhonchi, or wheezing. CARDIOVASCULAR: Revealed a regular rate and rhythm at this time with normal S1, S2. I cannot hear any significant S3 or S4. There were no significant murmurs, heaves, thrills, bruits, or rubs. ABDOMEN: Soft and nontender. Positive bowel sounds are present. EXTREMITIES: Show no clubbing, cyanosis, or edema. Pedal pulses are present. NEUROLOGIC: He appears to be grossly intact. There are no gross focal motor deficits noted. SKIN: Warm and dry. PSYCHOSOCIAL: Appears to be stable. His physical examination otherwise was unremarkable. LABORATORY DATA: Show a WBC of 8.8, hemoglobin is 10.8, platelet count 202,000. Sodium was 135, potassium 3.0, his BUN was 15, creatinine 1.04. Blood sugar was 70. Troponin I is 0.03 on admission, then decreased down to 0.028, is now increased up again to 0.048, not indicative of myocardial infarction. IMPRESSION: Syncopal episodes, most likely which is due to orthostatic hypotension. We will encourage fluids. He has had a normal echocardiogram in the past and normal ejection fraction in the past. We will also continue his beta blockers. If necessary, we will add lisinopril again, but the family says that he has had significant problems with lisinopril in the past, but he may need nitrates while he is lying in the bed and these are in the form of nitroglycerin paste. This may need to be removed when he is sitting or standing. I also suggest that he have compression hose all the way up to the waist. Once he is on stabilized on his medications, again we will see whether or not he needs further intervention. EKG did show in the emergency room, appeared to be would be atrial fibrillation again. At this time, he is back in a sinus rhythm. 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 We will be more than happy to continue to follow the patient with you. Job ID: [id number]
--- NOTE | 2020-02-21 15:32 | PDOC.MOPN ---
Interval History: remains orthostatic - Vital Signs Vital Signs: Vital Signs (12 hours) Temp Pulse Resp BP BP BP BP 02/21/20 11:20 98.2 F 72 17 137/77 137/77 124/64 02/21/20 10:03 187/108 H 02/21/20 07:12 99.0 F 60 18 187/108 H 02/21/20 05:10 167/90 H 02/21/20 03:39 192/100 H BP Pulse Ox 02/21/20 11:20 73/52 L 97 02/21/20 10:03 02/21/20 07:12 98 02/21/20 05:10 02/21/20 03:39 Weight Weight 191 lb 6 oz - Physical Exam General: Alert, Oriented x3, No acute distress HEENT: Atraumatic, PERRLA, EOMI, Mucous membr. moist/pink Lungs: Clear to auscultation, Normal air movement Cardiovascular: Regular rate Abdomen: Normal bowel sounds Skin: No rashes, No breakdown, No significant lesion Neurological: Normal speech - Labs Result Diagrams: 02/21/20 04:22 02/21/20 04:22 Lab results: Laboratory Results - last 24 hr 02/21/20 04:33: Magnesium 2.1 02/21/20 04:22: WBC 8.8, RBC 3.10 L, Hgb 10.8 L, Hct 33.8 L, MCV 109.0 H, MCH 35.0 H, MCHC 32.1, RDW 15.5 H, Plt Count 202, MPV 9.7, Neutrophils % 50.9, Lymphocytes % 31.2, Monocytes % 14.7 H, Eosinophils % 2.5, Basophils % 0.8, Neutrophils # 4.5, Lymphocytes # 2.7, Monocytes # 1.3 H, Eosinophils # 0.2, Basophils # 0.1 02/21/20 04:22: Sodium 135 L, Potassium 3.0 L, Chloride 104, Carbon Dioxide 23, Anion Gap 11, BUN 15, Creatinine 1.04, Estimated GFR (MDRD) 70, Glucose 106, Calcium 7.8 02/20/20 10:55: SARS-CoV-2 (PCR) Not Detected Status: lab reviewed by me A/P - Problem (1) Multiple myeloma Current Visit: No Code(s): C90.00 - MULTIPLE MYELOMA NOT HAVING ACHIEVED REMISSION Status: Acute Qualifiers: - Plan Plan: hold revlimid and steroids until dc follow-up outpatient
--- NOTE | 2020-02-21 15:53 | CON ---
DATE OF CONSULTATION: 02/20/2020 REASON FOR CONSULT: Multiple myeloma. HISTORY OF PRESENT ILLNESS: Mr. Vora is a 69-year-old gentleman with IgA kappa multiple myeloma. He is on treatment with oral Revlimid and dexamethasone weekly. He was admitted to this facility for a syncopal episode. In early January, he was in this facility after a fall, which was attributed to atrial fibrillation. He does have a history of atrial fibrillation and sees Dr. Cardenas. He is on multiple cardiac medicines including carvedilol, diltiazem, Entresto, and lisinopril. He was off the Revlimid and dexamethasone for several weeks and seen by [facility] on January 30. Decision was made to resume Revlimid with dexamethasone, however, have a shorter taper as his feels that his blood pressure is lower with off the steroids. Over the past several weeks, the admits that she has been taking his blood pressure multiple times a day and was holding his antihypertensives as well as his diltiazem or giving when she felt that he needed it, but however, inconsistent as were prescribed. On arrival to the emergency room, the patient was in atrial fibrillation with RVR. He was hypertensive. He was admitted for further workup. He had a brain and cervical CT, which were both negative. He was seen at bedside with his present. He denies any complaints at this time. PAST MEDICAL HISTORY: 1. IgG kappa multiple myeloma. 2. Pulmonary embolism. 3. Myocardial infarction. 4. Hypertension. 5. Hyperlipidemia. 6. Congestive heart failure. 7. History of atrial fibrillation. 8. History of multiple falls. PAST SURGICAL HISTORY: 1. Appendectomy. 2. Cholecystectomy. 3. Splenectomy. 4. Partial pancreatectomy. 5. Hernia repair. 6. Cardiac stent. 7. Cataract surgery. 8. MediPort placement. ALLERGIES: NO KNOWN DRUG ALLERGIES. HOME MEDICATIONS: 1. Revlimid. 2. Aspirin. 3. Citalopram. 4. Vitamin D. 5. Eliquis. 6. Lipitor. 7. Nexium. 8. Valacyclovir. 9. Zofran. 10. Cardizem SR. 11. Coreg. 12. Lasix. 13. B12. 14. Zestril. 15. Entresto. FAMILY HISTORY: Noncontributory. SOCIAL HISTORY: , has 2 children. Lives with his spouse. No alcohol, tobacco, or illicit drug use. REVIEW OF SYSTEMS: A 10-point review of systems is negative. PHYSICAL EXAMINATION: VITAL SIGNS: Temperature is 98.4, pulse is 74, respiratory rate 14, blood pressure is 155/92, he is 96% on room air. GENERAL: A well-developed, well-nourished male, in no acute distress. HEENT: Normocephalic and atraumatic. Pupils are equal and reactive to light. CV: Regular rate and rhythm. LUNGS: Clear. ABDOMEN: Soft and nontender. Bowel sounds are positive. EXTREMITIES: No clubbing or cyanosis. SKIN: No rash. HEMATOLOGIC: No petechiae or purpura. He does have scattered bruising on his upper extremities. NEUROLOGICAL: Nonfocal. PERTINENT LABORATORY DATA AND X-RAYS: WBCs are 9.8, hemoglobin 11.9, hematocrit 36.9, platelet count 220,000. He has 61% neutrophils, 22% lymphocytes. Sodium 136, potassium 3.6, chloride 101, CO2 is 25, BUN is 24, creatinine 1.28, calcium 8.1, bilirubin 0.8, AST is 28, ALT is 35, alkaline phosphatase is 69, serum total protein is 6.1, albumin 3.5, globulin 2.7. COVID-19 not detected. Radiology, per HPI. ASSESSMENT: 1. Syncopal episode. 2. Multiple myeloma. 3. Atrial fibrillation. DISCUSSION: states that the patient has been having syncopal episodes due to reduction in steroids. He was getting 20 mg once weekly, but now is tapered over 4 days. However, she has not been giving his prescribed cardiac medications as directed. She has been withholding and giving at inconsistent times and this includes his diltiazem and carvedilol. Question if his syncopal episode was from atrial fibrillation with RVR. He was instructed to take the medications as prescribed by his signal timer. He has an appointment with Dr. Cardenas later this week. We would hold Revlimid until discharge. Otherwise, we will provide supportive care. Thank you for the consult. Job ID: [id number] [facility]ITAL[facility]ela
[2020-02-21] MEDS: Apixaban 5 MG TAB PO SCH (20:38)
[2020-02-21] MEDS: Carvedilol 25 MG TAB PO SCH (20:38)
[2020-02-21] MEDS: Atorvastatin Calcium 40 MG TAB PO SCH (20:38)
[2020-02-21] MEDS: Diltiazem HCl SR 90 mg Capsule PO SCH (20:39)
[2020-02-22 05:36] LABS: Anion Gap 12 mmol/L (10-20); BUN (Urea Nitrogen) 14 mg/dL (8.4-25.7); Calc. Creatinine Clearance 88 mL/min (70-130); Calcium 8.2 mg/dL (7.8-10.44); Carbon Dioxide 22 mmol/L (23-31); Chloride 102 mmol/L (98-107); Estimated GFR-MDRD 79; Glucose 101 mg/dL (83-110); Magnesium 1.9 mg/dL (1.6-2.6); Potassium 3.3 mmol/L (3.5-5.1); Sodium 133 mmol/L (136-145)
[2020-02-22 05:46] LABS: Eosinophils 3 % (0-10); Hemoglobin 10.2 g/dL (14.0-18.0); Lymphocytes 24 % (21-51); MDiff Complete? YES; Mean Corpuscular HGB CONC 33.4 g/dL (32.0-36.0); Mean Corpuscular Hemoglobin 35.5 pg (27.0-31.0); Mean Platelet Volume 9.7 fL (7.4-10.4); Monocytes 13 % (0-10); Neutrophil 60 % (42-75); Platelet Count 192 thou/uL (130-400); Platelet Morphology Comment Appears Adequate; RBC Distribution Width 15.4 % (11.5-14.5); Red Blood Cell (RBC) Count 2.87 mill/uL (4.70-6.10); White Blood Cell (WBC) Count 8.5 thou/uL (4.8-10.8)
--- NOTE | 2020-02-22 07:31 | PDOC.HOSPP ---
- Subjective Encounter Date: 02/22/20 Encounter Time: 07:29 Subjective: no dizziness reported. has not attempted to stand overnite - Objective Vital Signs & Weight: Vital Signs (12 hours) Temp Pulse Resp BP BP Pulse Ox 02/22/20 03:53 98.3 F 65 18 143/75 H 97 02/22/20 00:04 99.3 F 62 16 141/79 H 97 Weight Weight 191 lb 6 oz I&O: 02/21/20 02/22/20 02/23/20 06:59 06:59 06:59 Intake Total 550 Output Total 1250 1550 Balance -1250 -1000 Result Diagrams: 02/22/20 05:03 02/22/20 05:03 Hospitalist ROS - Medication Medications: Active Medications Generic Name Dose Route Start Last Admin Trade Name Freq PRN Reason Stop Dose Admin Acetaminophen 650 mg 02/20/20 11:31 02/21/20 15:53 Acetaminophen 325 Mg Tab PO 650 mg Q4H PRN Administration Headache/Fever/Mild Pain (1-3) Apixaban 5 mg 02/21/20 21:00 02/21/20 20:38 Apixaban 5 Mg Tab PO 5 mg BID VIJAY Administration Atorvastatin Calcium 40 mg 02/21/20 21:00 02/21/20 20:38 Atorvastatin Calcium 40 Mg Tab PO 40 mg HS VIJAY Administration Carvedilol 12.5 mg 02/21/20 21:00 02/21/20 20:38 Carvedilol 25 Mg Tab PO 12.5 mg BID VIJAY Administration Diltiazem HCl 90 mg 02/21/20 21:00 02/21/20 20:39 Diltiazem Hcl Sr 90 Mg Capsule PO 90 mg BID VIJAY Administration - Exam General Appearance: awake alert Neck: no JVD Heart: RRR, no murmur Respiratory: CTAB Gastrointestinal: soft, normal bowel sounds Extremities: no edema Hosp A/P (1) Syncope Code(s): R55 - SYNCOPE AND COLLAPSE Status: Acute Qualifiers: Syncope type: unspecified Qualified Code(s): R55 - Syncope and collapse (2) Orthostatic hypotension Code(s): I95.1 - ORTHOSTATIC HYPOTENSION Status: Acute (3) Hypertension Code(s): I10 - ESSENTIAL (PRIMARY) HYPERTENSION Status: Acute Qualifiers: Hypertension type: essential hypertension (4) Multiple myeloma Code(s): C90.00 - MULTIPLE MYELOMA NOT HAVING ACHIEVED REMISSION Status: Acute Qualifiers: Multiple myeloma remission status: not in remission (5) CAD (coronary artery disease) Code(s): I25.10 - ATHSCL HEART DISEASE OF [place] CORONARY ARTERY W/O ANG PCTRS Status: Chronic Qualifiers: Coronary Disease-Associated Artery/Lesion type: [place] artery [place] vs. transplanted heart: [place] heart Associated angina: without angina Qualified Code(s): I25.10 - Atherosclerotic heart disease of [place] coronary artery without angina pectoris - Plan monitor supine/erect BP discuss with cardiology
[2020-02-22] MEDS: Amlodipine 5 MG TAB PO SCH (08:53)
[2020-02-22] MEDS: Apixaban 5 MG TAB PO SCH ×2 (08:54→20:59)
[2020-02-22] MEDS: valACYclovir 500 MG TAB PO SCH (08:54)
[2020-02-22] MEDS: Citalopram 10 MG TAB PO SCH (08:55)
[2020-02-22] MEDS: Lisinopril 20 MG TAB PO SCH (08:56)
[2020-02-22] MEDS: Aspirin Chewable 81 MG TAB PO SCH (08:57)
[2020-02-22] MEDS: Diltiazem HCl SR 90 mg Capsule PO SCH ×2 (08:57→20:59)
[2020-02-22] MEDS: Carvedilol 25 MG TAB PO SCH ×2 (08:58→20:59)
[2020-02-22] MEDS: Midodrine HCl 5 MG TAB PO SCH ×3 (10:08→20:59)
[2020-02-22] MEDS: Nitroglycerin 2% Ointment 1 INCH/1 GM Packet TOP SCH ×2 (14:07→21:00)
[2020-02-22] MEDS: Atorvastatin Calcium 40 MG TAB PO SCH (20:59)
[2020-02-23 05:50] LABS: Anion Gap 9 mmol/L (10-20); BUN (Urea Nitrogen) 17 mg/dL (8.4-25.7); Calc. Creatinine Clearance 90 mL/min (70-130); Calcium 7.9 mg/dL (7.8-10.44); Carbon Dioxide 25 mmol/L (23-31); Chloride 103 mmol/L (98-107); Estimated GFR-MDRD 81; Glucose 94 mg/dL (83-110); Magnesium 1.8 mg/dL (1.6-2.6); Sodium 134 mmol/L (136-145)
[2020-02-23] MEDS: Nitroglycerin 2% Ointment 1 INCH/1 GM Packet TOP SCH ×3 (06:01→21:37)
[2020-02-23 06:16] LABS: Band 3 % (5-11); Eosinophils 2 % (0-10); Hemoglobin 9.6 g/dL (14.0-18.0); Lymphocytes 34 % (21-51); MDiff Complete? YES; Mean Corpuscular HGB CONC 31.6 g/dL (32.0-36.0); Mean Corpuscular Hemoglobin 33.7 pg (27.0-31.0); Mean Platelet Volume 9.8 fL (7.4-10.4); Monocytes 9 % (0-10); Neutrophil 52 % (42-75); Platelet Count 177 thou/uL (130-400); RBC Distribution Width 15.4 % (11.5-14.5); Red Blood Cell (RBC) Count 2.86 mill/uL (4.70-6.10)
[2020-02-23] MEDS: Diltiazem HCl SR 90 mg Capsule PO SCH ×2 (09:29→21:37)
[2020-02-23] MEDS: Carvedilol 25 MG TAB PO SCH ×2 (09:29→21:37)
[2020-02-23] MEDS: Lisinopril 20 MG TAB PO SCH (09:29)
[2020-02-23] MEDS: Apixaban 5 MG TAB PO SCH ×2 (09:29→21:37)
[2020-02-23] MEDS: Amlodipine 5 MG TAB PO SCH (09:30)
[2020-02-23] MEDS: valACYclovir 500 MG TAB PO SCH (09:30)
[2020-02-23] MEDS: Aspirin Chewable 81 MG TAB PO SCH (09:31)
[2020-02-23] MEDS: Citalopram 10 MG TAB PO SCH (09:31)
[2020-02-23] MEDS: Midodrine HCl 5 MG TAB PO SCH ×3 (09:31→21:37)
[2020-02-23] MEDS ORDERED: Midodrine HCl 5 MG TAB PO SCH (15:45)
[2020-02-23] MEDS: Acetaminophen 325 MG TAB PO PRN (17:57)
--- NOTE | 2020-02-23 18:27 | PDOC.HOSPP ---
- Subjective Encounter Date: 02/23/20 Encounter Time: 18:05 Subjective: f/u for syncopal episode likely due to orthostatic hypotension. Currently receiving Midodrine titrated to 10mg TID. - Objective Vital Signs & Weight: Vital Signs (12 hours) Temp Pulse Resp BP BP BP BP 02/23/20 15:38 98.2 F 51 L 16 145/83 H 02/23/20 14:34 02/23/20 14:05 02/23/20 11:32 98.3 F 54 L 18 91/56 L 02/23/20 10:05 116/73 96/61 02/23/20 09:42 62 02/23/20 07:59 98.6 F 55 L 16 151/85 H BP BP Pulse Ox 02/23/20 15:38 96 02/23/20 14:34 151/79 H 02/23/20 14:05 134/69 02/23/20 11:32 97 02/23/20 10:05 146/73 H 02/23/20 09:42 02/23/20 07:59 95 Weight Weight 191 lb 6 oz I&O: 02/22/20 02/23/20 02/24/20 06:59 06:59 06:59 Intake Total 550 1090 Output Total 1550 1200 Balance -1000 -110 Result Diagrams: 02/23/20 04:41 02/23/20 04:41 Additional Labs: Laboratory Tests 02/20/20 02/20/20 02/20/20 05:51 05:51 08:29 D-Dimer 1.13 H Sodium Potassium Magnesium Troponin I 0.034 H 0.028 SARS-CoV-2 (PCR) 02/20/20 02/20/20 02/20/20 08:29 10:55 11:57 D-Dimer Sodium Potassium Magnesium 1.5 L Troponin I 0.048 H SARS-CoV-2 (PCR) Not Detected 02/21/20 02/21/20 02/22/20 04:22 04:33 05:03 D-Dimer Sodium 135 L 133 L Potassium 3.0 L 3.3 L Magnesium 2.1 1.9 Troponin I SARS-CoV-2 (PCR) Radiology Reviewed by me: Yes (CT brain - negative) EKG Reviewed by me: Yes (Tele - SR) Hospitalist ROS - Medication Medications: Active Medications Generic Name Dose Route Start Last Admin Trade Name Freq PRN Reason Stop Dose Admin Acetaminophen 650 mg 02/20/20 11:31 02/23/20 17:57 Acetaminophen 325 Mg Tab PO 650 mg Q4H PRN Administration Headache/Fever/Mild Pain (1-3) Amlodipine Besylate 5 mg 02/22/20 09:00 02/23/20 09:30 Amlodipine 5 Mg Tab PO 5 mg DAILY VIJAY Administration Apixaban 5 mg 02/21/20 21:00 02/23/20 09:29 Apixaban 5 Mg Tab PO 5 mg BID VIJAY Administration Aspirin 81 mg 02/22/20 09:00 02/23/20 09:31 Aspirin Chewable 81 Mg Tab PO 81 mg DAILY VIJAY Administration Atorvastatin Calcium 40 mg 02/21/20 21:00 02/22/20 20:59 Atorvastatin Calcium 40 Mg Tab PO 40 mg HS VIJAY Administration Carvedilol 12.5 mg 02/21/20 21:00 02/23/20 09:29 Carvedilol 25 Mg Tab PO 12.5 mg BID VIJAY Administration Citalopram Hydrobromide 20 mg 02/22/20 09:00 02/23/20 09:31 Citalopram 10 Mg Tab PO 20 mg DAILY VIJAY Administration Diltiazem HCl 90 mg 02/21/20 21:00 02/23/20 09:29 Diltiazem Hcl Sr 90 Mg Capsule PO 90 mg BID VIJAY Administration Lisinopril 10 mg 02/22/20 09:00 02/23/20 09:29 Lisinopril 20 Mg Tab PO 10 mg DAILY VIJAY Administration Nitroglycerin 0.5 inch 02/22/20 14:00 02/23/20 14:10 Nitroglycerin 2% Ointment 1 Inch/1 Gm Packet TOP 0.5 inch Q8HR VIJAY Administration Valacyclovir HCl 500 mg 02/22/20 09:00 02/23/20 09:30 Valacyclovir 500 Mg Tab PO 500 mg DAILY VIJAY Administration - Exam General Appearance: NAD, awake alert Eye: PERRL, anicteric sclera ENT: normocephalic atraumatic, no oropharyngeal lesions Neck: supple, symmetric, no JVD, no thyromegaly Heart: RRR, no gallops, no rubs, normal peripheral pulses Heart - other findings: S1, S2 Respiratory: CTAB, no wheezes, no rales, no ronchi, normal chest expansion Gastrointestinal: soft, non-tender, non-distended, normal bowel sounds, no palpable masses Extremities: no cyanosis Extremities - other findings: multiple areas of bruising Skin: normal turgor Neurological: cranial nerve grossly intact, no new deficit Musculoskeletal: normal tone, generalized weakness Psychiatric: normal affect, A&O x 3 Hosp A/P (1) Orthostatic hypotension Code(s): I95.1 - ORTHOSTATIC HYPOTENSION Status: Acute Plan: Continue Midodrine, compression stockings, check Cortisol/TSH, may need to titrate BP meds (2) Syncope Code(s): R55 - SYNCOPE AND COLLAPSE Status: Acute Qualifiers: Syncope type: unspecified Qualified Code(s): R55 - Syncope and collapse Plan: Secondary to #1, see above (3) Hypokalemia Code(s): E87.6 - HYPOKALEMIA Status: Acute Plan: KCL supplementation, serial K+ monitoring (4) Multiple myeloma Code(s): C90.00 - MULTIPLE MYELOMA NOT HAVING ACHIEVED REMISSION Status: Chronic Qualifiers: Multiple myeloma remission status: not in remission Plan: Continue outpt Chemo at [facility] (5) CAD (coronary artery disease) Code(s): I25.10 - ATHSCL HEART DISEASE OF [place] CORONARY ARTERY W/O ANG PCTRS Status: Chronic Qualifiers: Coronary Disease-Associated Artery/Lesion type: [place] artery [place] vs. transplanted heart: [place] heart Associated angina: without angina Qualified Code(s): I25.10 - Atherosclerotic heart disease of [place] coronary artery without angina pectoris - Plan plan discussed w/ family, out of bed/ambulate, DVT proph w/SCDs Stable currently Continue Midodrine Limit BP meds Continue ASA/Lipitor Continue Eliquis AM lab: BMP, TSH, Cortisol
[2020-02-23] MEDS ORDERED: Potassium Chloride 20 MEQ TAB PO SCH (18:45)
[2020-02-23] MEDS: Atorvastatin Calcium 40 MG TAB PO SCH (21:37)
[2020-02-24] MEDS: Nitroglycerin 2% Ointment 1 INCH/1 GM Packet TOP SCH (05:29)
[2020-02-24 05:35] LABS: Anion Gap 11 mmol/L (10-20); BUN (Urea Nitrogen) 22 mg/dL (8.4-25.7); Calc. Creatinine Clearance 89 mL/min (70-130); Calcium 8.7 mg/dL (7.8-10.44); Carbon Dioxide 24 mmol/L (23-31); Chloride 102 mmol/L (98-107); Estimated GFR-MDRD 80; Glucose 101 mg/dL (83-110); Magnesium 1.8 mg/dL (1.6-2.6); Potassium 3.4 mmol/L (3.5-5.1); Sodium 134 mmol/L (136-145)
[2020-02-24] MEDS: Aspirin Chewable 81 MG TAB PO SCH (09:25)
[2020-02-24] MEDS: Carvedilol 25 MG TAB PO SCH ×2 (09:25→20:56)
[2020-02-24] MEDS: Amlodipine 5 MG TAB PO SCH (09:25)
[2020-02-24] MEDS: Potassium Chloride 20 MEQ TAB PO SCH ×2 (09:25→16:14)
[2020-02-24] MEDS: Apixaban 5 MG TAB PO SCH ×2 (09:25→20:56)
[2020-02-24] MEDS: valACYclovir 500 MG TAB PO SCH (09:26)
[2020-02-24] MEDS: Diltiazem HCl SR 90 mg Capsule PO SCH (09:26)
[2020-02-24] MEDS: Citalopram 10 MG TAB PO SCH (09:26)
[2020-02-24] MEDS: Midodrine HCl 5 MG TAB PO SCH ×3 (09:26→20:56)
[2020-02-24] MEDS: Lisinopril 20 MG TAB PO SCH (09:26)
[2020-02-24] MEDS: Acetaminophen 325 MG TAB PO PRN ×2 (10:34→20:57)
--- NOTE | 2020-02-24 12:11 | PDOC.HOSPP ---
- Subjective Encounter Date: 02/24/20 Encounter Time: 10:15 Subjective: no chest pain or dizziness has not ambulated so far at bedside - Objective Vital Signs & Weight: Vital Signs (12 hours) Temp Pulse Resp BP BP Pulse Ox 02/24/20 11:36 98.2 F 58 L 16 106/69 97 02/24/20 09:25 65 02/24/20 08:01 98.3 F 65 20 134/76 97 02/24/20 07:20 97 02/24/20 04:00 98.1 F 57 L 14 128/71 98 Weight Weight 191 lb 6 oz I&O: 02/23/20 02/24/20 02/25/20 06:59 06:59 06:59 Intake Total 1090 995 300 Output Total 1200 725 Balance -110 270 300 Result Diagrams: 02/23/20 04:41 02/24/20 04:53 Hospitalist ROS - Medication Medications: Active Medications Generic Name Dose Route Start Last Admin Trade Name Freq PRN Reason Stop Dose Admin Acetaminophen 650 mg 02/20/20 11:31 02/24/20 10:34 Acetaminophen 325 Mg Tab PO 650 mg Q4H PRN Administration Headache/Fever/Mild Pain (1-3) Amlodipine Besylate 5 mg 02/22/20 09:00 02/24/20 09:25 Amlodipine 5 Mg Tab PO 5 mg DAILY VIJAY Administration Apixaban 5 mg 02/21/20 21:00 02/24/20 09:25 Apixaban 5 Mg Tab PO 5 mg BID VIJAY Administration Aspirin 81 mg 02/22/20 09:00 02/24/20 09:25 Aspirin Chewable 81 Mg Tab PO 81 mg DAILY VIJAY Administration Atorvastatin Calcium 40 mg 02/21/20 21:00 02/23/20 21:37 Atorvastatin Calcium 40 Mg Tab PO 40 mg HS VIJAY Administration Carvedilol 12.5 mg 02/21/20 21:00 02/24/20 09:25 Carvedilol 25 Mg Tab PO 12.5 mg BID VIJAY Administration Citalopram Hydrobromide 20 mg 02/22/20 09:00 02/24/20 09:26 Citalopram 10 Mg Tab PO 20 mg DAILY VIJAY Administration Diltiazem HCl 90 mg 02/21/20 21:00 02/24/20 09:26 Diltiazem Hcl Sr 90 Mg Capsule PO 90 mg BID VIJAY Administration Lisinopril 10 mg 02/22/20 09:00 02/24/20 09:26 Lisinopril 20 Mg Tab PO 10 mg DAILY VIJAY Administration Midodrine 10 mg 02/23/20 21:00 02/24/20 09:26 Midodrine Hcl 5 Mg Tab PO 10 mg TID VIJAY Administration Potassium Chloride 40 meq 02/24/20 08:00 02/24/20 09:25 Potassium Chloride 20 Meq Tab PO 40 meq BID-WM VIJAY Administration Valacyclovir HCl 500 mg 02/22/20 09:00 02/24/20 09:26 Valacyclovir 500 Mg Tab PO 500 mg DAILY VIJAY Administration - Exam General Appearance: awake alert Eye: PERRL, anicteric sclera ENT: no oropharyngeal lesions, moist mucosa Neck: supple, no JVD Heart: RRR, no murmur Respiratory: no wheezes, no rales Gastrointestinal: soft, non-tender, non-distended, normal bowel sounds Extremities: no cyanosis, no edema Neurological: cranial nerve grossly intact, no focal deficits Psychiatric: normal affect, A&O x 3 Hosp A/P (1) Syncope Code(s): R55 - SYNCOPE AND COLLAPSE Status: Acute Qualifiers: Syncope type: unspecified Qualified Code(s): R55 - Syncope and collapse (2) Orthostatic hypotension Code(s): I95.1 - ORTHOSTATIC HYPOTENSION Status: Acute (3) Afib Code(s): I48.91 - UNSPECIFIED ATRIAL FIBRILLATION Status: Chronic Qualifiers: Atrial fibrillation type: paroxysmal Qualified Code(s): I48.0 - Paroxysmal atrial fibrillation (4) Chronic anemia Code(s): D64.9 - ANEMIA, UNSPECIFIED Status: Chronic (5) Hypertension Code(s): I10 - ESSENTIAL (PRIMARY) HYPERTENSION Status: Chronic Qualifiers: Hypertension type: essential hypertension (6) CAD (coronary artery disease) Code(s): I25.10 - ATHSCL HEART DISEASE OF [place] CORONARY ARTERY W/O ANG PCTRS Status: Chronic Qualifiers: Coronary Disease-Associated Artery/Lesion type: [place] artery [place] vs. transplanted heart: [place] heart Associated angina: without angina Qualified Code(s): I25.10 - Atherosclerotic heart disease of [place] coronary artery wit hout angina pectoris (7) Multiple myeloma Code(s): C90.00 - MULTIPLE MYELOMA NOT HAVING ACHIEVED REMISSION Status: Chronic Qualifiers: Multiple myeloma remission status: not in remission - Plan is on midodrine 10mg tid, coreg, cardizem cd 90mg bid, lisinopril, norvasc, asp, eliquis and lipitor hemostable PT to mobilize from today to see if he can ambulate well vitamin B12 and folic acid h/o multiple myeloma, gets treated at [facility] d/w and patient at bedside dc plan in am if he ambulates well, referall for dizzy and balance clinic on dc
--- NOTE | 2020-02-24 12:47 | PDOC.CPN ---
- Subjective Date: 02/24/20 Time: 12:45 Interval history: No new issue.dalia glover gotten out of bed much in last few days for fear of syncope. - Review of Systems General: denies: fever/chills, weight/appetite/sleep changes, night sweats, fatigue Respiratory: denies: cough, congestion, shortness of breath, exercise intolerance Cardiovascular: denies: chest pain, palpitation, edema, paroxysmal nocturnal d yspnea, orthopnea Gastrointestinal: denies: nausea, vomiting, diarrhea, constipation, abd pain, GI bleeding Musculoskeletal: denies: pain, tenderness, stiffness, swelling, arthritis/arthralgias Neurological: denies: numbness, syncope, seizure, weakness - Objective Allergies/Adverse Reactions: Allergies Allergy/AdvReac Type Severity Reaction Status Date / Time No Known Allergies Allergy Verified 01/03/20 04:12 Visit Medications: Current Medications Acetaminophen (Acetaminophen 325 Mg Tab) 650 mg PO Q4H PRN PRN Reason: Headache/Fever/Mild Pain (1-3) Last Admin: 02/24/20 10:34 Dose: 650 mg Documented by: Amlodipine Besylate (Amlodipine 5 Mg Tab) 5 mg PO DAILY [facility] Last Admin: 02/24/20 09:25 Dose: 5 mg Documented by: Apixaban (Apixaban 5 Mg Tab) 5 mg PO BID [facility] Last Admin: 02/24/20 09:25 Dose: 5 mg Documented by: Aspirin (Aspirin Chewable 81 Mg Tab) 81 mg PO DAILY [facility] Last Admin: 02/24/20 09:25 Dose: 81 mg Documented by: Atorvastatin Calcium (Atorvastatin Calcium 40 Mg Tab) 40 mg PO HS [facility] Last Admin: 02/23/20 21:37 Dose: 40 mg Documented by: Carvedilol (Carvedilol 25 Mg Tab) 12.5 mg PO BID [facility] Last Admin: 02/24/20 09:25 Dose: 12.5 mg Documented by: Citalopram Hydrobromide (Citalopram 10 Mg Tab) 20 mg PO DAILY [facility] Last Admin: 02/24/20 09:26 Dose: 20 mg Documented by: Diltiazem HCl (Diltiazem Hcl 30 Mg Tablet) 30 mg PO Q4H PRN PRN Reason: Cardiac Arrythmia Diltiazem HCl (Diltiazem Hcl Sr 90 Mg Capsule) 90 mg PO BID [facility] Last Admin: 02/24/20 09:26 Dose: 90 mg Documented by: Lisinopril (Lisinopril 20 Mg Tab) 10 mg PO DAILY [facility] Last Admin: 02/24/20 09:26 Dose: 10 mg Documented by: Midodrine (Midodrine Hcl 5 Mg Tab) 10 mg PO TID [facility] Last Admin: 02/24/20 09:26 Dose: 10 mg Documented by: Potassium Chloride (Potassium Chloride 20 Meq Tab) 40 meq PO BID-WM [facility] Last Admin: 02/24/20 09:25 Dose: 40 meq Documented by: Valacyclovir HCl (Valacyclovir 500 Mg Tab) 500 mg PO DAILY [facility] Last Admin: 02/24/20 09:26 Dose: 500 mg Documented by: Vital Signs & Weight: Vital Signs Temp Pulse Resp BP BP Pulse Ox 02/24/20 11:36 98.2 F 58 L 16 106/69 97 02/24/20 09:25 65 02/24/20 08:01 98.3 F 65 20 134/76 97 02/24/20 07:20 97 02/24/20 04:00 98.1 F 57 L 14 128/71 98 Weight 191 lb 6 oz - Physical Exam General: alert & oriented x3 HEENT: mucus membranes moist Neck: supple neck Cardiac: regular rate and rhythm Lungs: normal breath sounds Neuro: grossly intact Abdomen: active bowel sounds Extremities: no edema Skin: clear Musculoskeletal: no pain - Labs Result Diagrams: 02/23/20 04:41 02/24/20 04:53 Troponin/CKMB CK-MB (CK-2) 1.4 ng/mL (0-6.6) 02/20/20 05:51 Troponin I 0.048 ng/mL (< 0.028) H 02/20/20 11:57 - Telemetry Sinus rhythms and dysrhythmias: sinus rhythm - Assessment/Plan Assessment/Plan: 1. Orthostatic hypotension 2. Syncope, likely from #1. 3. Multiple myeloma 4. Paroxysmal afib PLAN: - Will need to have his BP checked only sanding up. - Currently on midodrin 10 mg TID. - Likely hold ACEI and diltiazem at this time to minimize orthostatic drop. - PT/OT consult. - Currently on Eliquis for stroke prophylaxis however if he continues to fall he may be high risk for injury with a fall. . - Will also stop amlodipine for now.
[2020-02-24] MEDS: Atorvastatin Calcium 40 MG TAB PO SCH (20:56)
[2020-02-25] MEDS: Aspirin Chewable 81 MG TAB PO SCH (08:38)
[2020-02-25] MEDS: Carvedilol 25 MG TAB PO SCH ×2 (08:38→23:12)
[2020-02-25] MEDS: Apixaban 5 MG TAB PO SCH ×2 (08:38→23:12)
[2020-02-25] MEDS: Potassium Chloride 20 MEQ TAB PO SCH ×2 (08:38→16:13)
[2020-02-25] MEDS: Acetaminophen 325 MG TAB PO PRN (08:39)
[2020-02-25] MEDS: Citalopram 10 MG TAB PO SCH (08:39)
[2020-02-25] MEDS: valACYclovir 500 MG TAB PO SCH (08:39)
[2020-02-25] MEDS: Midodrine HCl 5 MG TAB PO SCH ×3 (08:39→23:12)
--- NOTE | 2020-02-25 11:05 | PDOC.HOSPP ---
- Subjective Encounter Date: 02/25/20 Encounter Time: 10:15 Subjective: no dizziness or chest pain last stress test was more than a yr back with at [place] - Objective Vital Signs & Weight: Vital Signs (12 hours) Temp Pulse Resp BP BP BP BP 02/25/20 10:13 121/71 99/57 L 126/65 02/25/20 07:53 98.2 F 52 L 16 149/78 H 02/25/20 04:42 98.6 F 59 L 18 109/67 110/67 124/73 Pulse Ox 02/25/20 10:13 02/25/20 07:53 99 02/25/20 04:42 99 Weight Weight 198 lb 6.4 oz I&O: 02/24/20 02/25/20 02/26/20 06:59 06:59 06:59 Intake Total 995 1140 300 Output Total 725 300 Balance 270 840 300 Result Diagrams: 02/23/20 04:41 02/24/20 04:53 Hospitalist ROS - Medication Medications: Active Medications Generic Name Dose Route Start Last Admin Trade Name Freq PRN Reason Stop Dose Admin Acetaminophen 650 mg 02/20/20 11:31 02/25/20 08:39 Acetaminophen 325 Mg Tab PO 650 mg Q4H PRN Administration Headache/Fever/Mild Pain (1-3) Apixaban 5 mg 02/21/20 21:00 02/25/20 08:38 Apixaban 5 Mg Tab PO 5 mg BID [facility] Administration Aspirin 81 mg 02/22/20 09:00 02/25/20 08:38 Aspirin Chewable 81 Mg Tab PO 81 mg DAILY [facility] Administration Atorvastatin Calcium 40 mg 02/21/20 21:00 02/24/20 20:56 Atorvastatin Calcium 40 Mg Tab PO 40 mg HS [facility] Administration Carvedilol 12.5 mg 02/21/20 21:00 02/25/20 08:38 Carvedilol 25 Mg Tab PO 12.5 mg BID [facility] Administration Citalopram Hydrobromide 20 mg 02/22/20 09:00 02/25/20 08:39 Citalopram 10 Mg Tab PO 20 mg DAILY [facility] Administration Midodrine 10 mg 02/23/20 21:00 02/25/20 08:39 Midodrine Hcl 5 Mg Tab PO 10 mg TID [facility] Administration Potassium Chloride 40 meq 02/24/20 08:00 02/25/20 08:38 Potassium Chloride 20 Meq Tab PO 40 meq BID-WM [facility] Administration Valacyclovir HCl 500 mg 02/22/20 09:00 02/25/20 08:39 Valacyclovir 500 Mg Tab PO 500 mg DAILY [facility] Administration - Exam General Appearance: awake alert Eye: PERRL, anicteric sclera ENT: no oropharyngeal lesions, moist mucosa Neck: supple, no JVD Heart: RRR, no murmur Respiratory: no wheezes, no rales Gastrointestinal: soft, non-tender, non-distended, normal bowel sounds Extremities: no cyanosis, no edema Neurological: cranial nerve grossly intact, no focal deficits Psychiatric: normal affect, A&O x 3 Hosp A/P (1) Syncope Code(s): R55 - SYNCOPE AND COLLAPSE Status: Acute Qualifiers: Syncope type: unspecified Qualified Code(s): R55 - Syncope and collapse (2) Orthostatic hypotension Code(s): I95.1 - ORTHOSTATIC HYPOTENSION Status: Acute (3) Afib Code(s): I48.91 - UNSPECIFIED ATRIAL FIBRILLATION Status: Chronic Qualifiers: Atrial fibrillation type: paroxysmal Qualified Code(s): I48.0 - Paroxysmal atrial fibrillation (4) Chronic anemia Code(s): D64.9 - ANEMIA, UNSPECIFIED Status: Chronic (5) Hypertension Code(s): I10 - ESSENTIAL (PRIMARY) HYPERTENSION Status: Chronic Qualifiers: Hypertension type: essential hypertension (6) CAD (coronary artery disease) Code(s): I25.10 - ATHSCL HEART DISEASE OF [place] CORONARY ARTERY W/O ANG PCTRS Status: Chronic Qualifiers: Coronary Disease-Associated Artery/Lesion type: [place] artery [place] vs. transplanted heart: [place] heart Associated angina: without angina Qualified Code(s): I25.10 - Atherosclerotic heart disease of [place] coronary artery with out angina pectoris (7) Multiple myeloma Code(s): C90.00 - MULTIPLE MYELOMA NOT HAVING ACHIEVED REMISSION Status: Chronic Qualifiers: Multiple myeloma remission status: not in remission - Plan is on midodrine 10mg tid, coreg, asp, eliquis and lipitor off cardizem and lisinopril from 02/23 got hypotensive with PT yesterday with sbp dropping to 70's with no symptoms, hopefully his BP holds up today with PT. watch for afib (is off cardizem cd now) hemostable vitamin B12 and folic acid h/o multiple myeloma, gets treated at [facility] plan in am if he ambulates well, referelmira for dizzy and balance clinic on dc
--- NOTE | 2020-02-25 16:54 | PDOC.CPN ---
- Subjective Date: 02/25/20 Time: 16:50 Interval history: He is doing much better. He was able to stand up and walk the hallway with PT. his BP remains normal and he drops about 20 points when standing up but is no longer symptomatic. - Review of Systems General: denies: fever/chills, weight/appetite/sleep changes, night sweats, fatigue Respiratory: denies: cough, congestion, shortness of breath, exercise intolerance Cardiovascular: denies: chest pain, palpitation, edema, paroxysmal nocturnal dyspnea, orthopnea Gastrointestinal: denies: nausea, vomiting, diarrhea, constipation, abd pain, GI bleeding Musculoskeletal: denies: pain, tenderness, stiffness, swelling, arthritis/arthralgias Neurological: denies: numbness, syncope, seizure, weakness - Objective Allergies/Adverse Reactions: Allergies Allergy/AdvReac Type Severity Reaction Status Date / Time No Known Allergies Allergy Verified 01/03/20 04:12 Visit Medications: Current Medications Acetaminophen (Acetaminophen 325 Mg Tab) 650 mg PO Q4H PRN PRN Reason: Headache/Fever/Mild Pain (1-3) Last Admin: 02/25/20 08:39 Dose: 650 mg Documented by: Apixaban (Apixaban 5 Mg Tab) 5 mg PO BID [facility] Last Admin: 02/25/20 08:38 Dose: 5 mg Documented by: Aspirin (Aspirin Chewable 81 Mg Tab) 81 mg PO DAILY [facility] Last Admin: 02/25/20 08:38 Dose: 81 mg Documented by: Atorvastatin Calcium (Atorvastatin Calcium 40 Mg Tab) 40 mg PO HS [facility] Last Admin: 02/24/20 20:56 Dose: 40 mg Documented by: Carvedilol (Carvedilol 25 Mg Tab) 12.5 mg PO BID [facility] Last Admin: 02/25/20 08:38 Dose: 12.5 mg Documented by: Citalopram Hydrobromide (Citalopram 10 Mg Tab) 20 mg PO DAILY [facility] Last Admin: 02/25/20 08:39 Dose: 20 mg Documented by: Midodrine (Midodrine Hcl 5 Mg Tab) 10 mg PO TID [facility] Last Admin: 02/25/20 16:12 Dose: 10 mg Documented by: Potassium Chloride (Potassium Chloride 20 Meq Tab) 40 meq PO BID[facility] Last Admin: 02/25/20 16:13 Dose: 40 meq Documented by: Valacyclovir HCl (Valacyclovir 500 Mg Tab) 500 mg PO DAILY [facility] Last Admin: 02/25/20 08:39 Dose: 500 mg Documented by: Vital Signs & Weight: Vital Signs Temp Pulse Pulse Pulse Pulse Pulse Resp 02/25/20 16:00 98.2 F 58 L 16 02/25/20 11:51 97.9 F 59 L 16 02/25/20 10:13 02/25/20 09:47 59 L 62 51 L 66 02/25/20 07:53 98.2 F 52 L 16 BP BP BP BP BP BP BP 02/25/20 16:00 158/93 H 02/25/20 11:51 158/79 H 02/25/20 10:13 121/71 99/57 L 02/25/20 09:47 99/57 L 121/71 126/65 97/65 02/25/20 07:53 149/78 H BP Pulse Ox 02/25/20 16:00 100 02/25/20 11:51 99 02/25/20 10:13 126/65 02/25/20 09:47 02/25/20 07:53 99 Weight 198 lb 6.4 oz - Physical Exam General: alert & oriented x3 HEENT: mucus membranes moist Neck: supple neck Cardiac: regular rate and rhythm Lungs: normal breath sounds Neuro: grossly intact, no lateralizing findings Abdomen: active bowel sounds Extremities: no edema Skin: clear Musculoskeletal: no pain - Labs Result Diagrams: 02/23/20 04:41 02/24/20 04:53 Troponin/CKMB CK-MB (CK-2) 1.4 ng/mL (0-6.6) 02/20/20 05:51 Troponin I 0.048 ng/mL (< 0.028) H 02/20/20 11:57 - Telemetry Sinus rhythms and dysrhythmias: sinus rhythm - Assessment/Plan Assessment/Plan: 1. Orthostatic hypotension 2. Syncope, likely from #1. 3. Multiple myeloma 4. Paroxysmal afib PLAN: - Will need to have his BP checked only sanding up. - Continue midodrin 10 mg TID. - Continue to hold ACEI, diltiazem and amlodipine to minimize orthostatic drop. - Continue PT as tolerated. - Currently on Eliquis for stroke prophylaxis however if he continues to fall he may be high risk for injury with a fall. - Will likely need PRN clonidine or hydralazine at discharge as his BP at home has been labile at times. - Dr. Rodriguez to follow in the morning.
[2020-02-25] MEDS: Atorvastatin Calcium 40 MG TAB PO SCH (23:12)
[2020-02-26 05:06] LABS: Anion Gap 10 mmol/L (10-20); BUN (Urea Nitrogen) 12 mg/dL (8.4-25.7); Calc. Creatinine Clearance 92 mL/min (70-130); Calcium 8.4 mg/dL (7.8-10.44); Carbon Dioxide 25 mmol/L (23-31); Chloride 105 mmol/L (98-107); Estimated GFR-MDRD 79; Glucose 95 mg/dL (83-110); Potassium 4.2 mmol/L (3.5-5.1); Sodium 136 mmol/L (136-145)
[2020-02-26 05:28] LABS: Band 1 % (5-11); Eosinophils 2 % (0-10); Hemoglobin 9.5 g/dL (14.0-18.0); Lymphocytes 25 % (21-51); MDiff Complete? YES; Mean Corpuscular HGB CONC 33.1 g/dL (32.0-36.0); Mean Corpuscular Hemoglobin 36.3 pg (27.0-31.0); Mean Platelet Volume 8.9 fL (7.4-10.4); Monocytes 16 % (0-10); Neutrophil 56 % (42-75); Platelet Count 214 thou/uL (130-400); RBC Distribution Width 15.1 % (11.5-14.5); Red Blood Cell (RBC) Count 2.61 mill/uL (4.70-6.10); Schistocytes SLIGHT = 2-5 cells (100X) (0-1/hpf)
[2020-02-26] MEDS: Citalopram 10 MG TAB PO SCH (08:53)
[2020-02-26] MEDS: Aspirin Chewable 81 MG TAB PO SCH (08:53)
[2020-02-26] MEDS: Carvedilol 25 MG TAB PO SCH (08:53)
[2020-02-26] MEDS: Apixaban 5 MG TAB PO SCH (08:53)
[2020-02-26] MEDS: Potassium Chloride 20 MEQ TAB PO SCH ×2 (08:53→16:25)
[2020-02-26] MEDS: Midodrine HCl 5 MG TAB PO SCH ×2 (08:54→16:25)
[2020-02-26] MEDS: valACYclovir 500 MG TAB PO SCH (08:54)
--- NOTE | 2020-02-26 13:20 | PDOC.CPN ---
- Subjective Date: 02/26/20 Time: 13:00 - Review of Systems General: denies: fever/chills, weight/appetite/sleep changes, night sweats, fatigue Respiratory: denies: cough, congestion, shortness of breath, exercise intolerance Cardiovascular: denies: chest pain, palpitation, edema, paroxysmal nocturnal dyspnea, orthopnea Gastrointestinal: denies: nausea, vomiting, diarrhea, constipation, abd pain, GI bleeding Musculoskeletal: denies: pain, tenderness, stiffness, swelling, arthriti s/arthralgias Neurological: reports: weakness - Objective Allergies/Adverse Reactions: Allergies Allergy/AdvReac Type Severity Reaction Status Date / Time No Known Allergies Allergy Verified 01/03/20 04:12 Visit Medications: Current Medications Acetaminophen (Acetaminophen 325 Mg Tab) 650 mg PO Q4H PRN PRN Reason: Headache/Fever/Mild Pain (1-3) Last Admin: 02/25/20 08:39 Dose: 650 mg Documented by: Apixaban (Apixaban 5 Mg Tab) 5 mg PO BID [facility] Last Admin: 02/26/20 08:53 Dose: 5 mg Documented by: Aspirin (Aspirin Chewable 81 Mg Tab) 81 mg PO DAILY [facility] Last Admin: 02/26/20 08:53 Dose: 81 mg Documented by: Atorvastatin Calcium (Atorvastatin Calcium 40 Mg Tab) 40 mg PO HS [facility] Last Admin: 02/25/20 23:12 Dose: 40 mg Documented by: Carvedilol (Carvedilol 25 Mg Tab) 12.5 mg PO BID [facility] Last Admin: 02/26/20 08:53 Dose: 12.5 mg Documented by: Citalopram Hydrobromide (Citalopram 10 Mg Tab) 20 mg PO DAILY [facility] Last Admin: 02/26/20 08:53 Dose: 20 mg Documented by: Midodrine (Midodrine Hcl 5 Mg Tab) 10 mg PO TID [facility] Last Admin: 02/26/20 08:54 Dose: 10 mg Documented by: Potassium Chloride (Potassium Chloride 20 Meq Tab) 40 meq PO BID[facility] Last Admin: 02/26/20 08:53 Dose: 40 meq Documented by: Valacyclovir HCl (Valacyclovir 500 Mg Tab) 500 mg PO DAILY [facility] Last Admin: 02/26/20 08:54 Dose: 500 mg Documented by: Vital Signs & Weight: Vital Signs Temp Pulse Resp BP BP BP BP 02/26/20 11:46 98.2 F 61 16 02/26/20 11:23 02/26/20 10:25 127/80 102/74 104/58 L 95/59 L 02/26/20 07:58 98.3 F 57 L 16 02/26/20 03:16 98.1 F 63 20 BP BP BP BP BP Pulse Ox 02/26/20 11:46 103/67 96 02/26/20 11:23 102/74 104/58 L 127/80 02/26/20 10:25 127/63 02/26/20 07:58 177/83 H 99 02/26/20 03:16 162/92 H 98 Weight 198 lb 6.4 oz - Physical Exam General: alert & oriented x3 HEENT: normocephaly Neck: midline trachea, no JVD/HJR Cardiac: regular rate and rhythm, no murmur, regular rhythm Lungs: clear to auscultation Neuro: grossly intact Abdomen: unremarkable, active bowel sounds, non-tender Extremities: no cyanosis, no edema Skin: clear Musculoskeletal: normal range of motion - Labs Result Diagrams: 02/26/20 04:29 02/26/20 04:29 Troponin/CKMB CK-MB (CK-2) 1.4 ng/mL (0-6.6) 02/20/20 05:51 Troponin I 0.048 ng/mL (< 0.028) H 02/20/20 11:57 - Telemetry Sinus rhythms and dysrhythmias: sinus rhythm - Assessment/Plan Assessment/Plan: 1. Orthostatic hypotension 2. Syncope, likely from #1. 3. Multiple myeloma 4. Paroxysmal afib PLAN: - Will need to have his BP checked only standing up. - Continue midodrin 10 mg TID. If the BP is still too low in the standing position then add Florinef. - Continue to hold ACEI, diltiazem and amlodipine to minimize orthostatic drop. - Continue PT as tolerated. - Currently on Eliquis for stroke prophylaxis however if he continues to fall he may be high risk for injury with a fall. - Will likely need PRN clonidine or hydralazine at discharge as his BP at home has been labile at times or try NTG paste at night and wipe off before getting up. If the BP is stable this afternoon with walking then could d/c later today. -
[2020-02-26 15:34] VITALS: BP 178/82; TEMP 97.8
--- NOTE | 2020-02-27 15:01 | PDOC.DS.DS ---
Provider - Provider Date of Admission: 02/20/20 08:33 Admitting Provider: Jer Capone MD Consultations:: Cardiology Primary Care Physician: Unknown Course - Hospital Course Hospital Course: This patient is a 69 yo male who presented to the ED with multiple falls. He had a history of HTN and multiple myeloma. He had recently been admitted with falls that appeared to be more mechanical. He had also been admitted recently at [facility] with elevated BP. During this admission, the patient appeared to have profound orthostatic hypotension. He was evaluated by Oncology who recommended holding his treatment until he was discharged. Cardiology consult recommended waist high compression hose which would have to be measured and made in the outpatient setting. His antihypertensives were held and he was started on midodrine. With those changes he was able to get with PT and ambulate. He still had mild orthostasis, but it was much improved and he was asymptomatic. With that he was felt to be stable for discharge to home. Resuscitation Status: 02/20/20 11:31 Resuscitation Status Routine Co-Sign Provider: Resuscitation Status: FULL: Full Resuscitation Discussed with: pt - Labs Lab Results: 02/26/20 04:29 02/26/20 04:29 Abnormal Lab Results - Last 48 hrs 02/26/20 04:29: RBC 2.61 L, Hgb 9.5 L, Hct 28.7 L, MCV 110.0 H, MCH 36.3 H, RDW 15.1 H, Band Neuts % (Manual) 1 L, Monocytes % (Manual) 16 H, Acanthocytes (Spur) MODERATE= 6-15 cells H - Physical Exam Vitals: Weight Weight 198 lb 6.4 oz Physical Exam: The patient was seen and examined on the day of discharge. Ambulating in the [place] with PT. Heart reg, no M. Lungs clear. Problem - Problem (1) Syncope Code(s): R55 - SYNCOPE AND COLLAPSE Status: Acute Qualifiers: Syncope type: unspecified Qualified Code(s): R55 - Syncope and collapse (2) CAD (coronary artery disease) Code(s): I25.10 - ATHSCL HEART DISEASE OF [place] CORONARY ARTERY W/O ANG PCTRS Status: Chronic Qualifiers: Coronary Disease-Associated Artery/Lesion type: [place] artery [place] vs. transplanted heart: [place] heart Associated angina: without angina Qualified Code(s): I25.10 - Atherosclerotic heart disease of [place] coronary artery without angina pectoris (3) Multiple myeloma Code(s): C90.00 - MULTIPLE MYELOMA NOT HAVING ACHIEVED REMISSION Status: Chronic Qualifiers: Multiple myeloma remission status: not in remission (4) Hypertension Code(s): I10 - ESSENTIAL (PRIMARY) HYPERTENSION Status: Chronic Qualifiers: Hypertension type: essential hypertension (5) Chronic anemia Code(s): D64.9 - ANEMIA, UNSPECIFIED Status: Chronic (6) Orthostatic hypotension Code(s): I95.1 - ORTHOSTATIC HYPOTENSION Status: Acute Plan - Discharge Medications Prescriptions: Midodrine HCl [ProAmatine] 10 mg PO TID #90 tab Home Medications: Medication Instructions Recorded Confirmed Type Esomeprazole Magnesium [NexIUM] 40 mg PO QAM PRN 07/29/16 02/20/20 History Ondansetron HCl [Zofran] 8 mg PO TID PRN 07/29/16 02/20/20 History Atorvastatin Calcium [Lipitor] 40 mg PO QPM 01/18/17 02/20/20 History Aspirin Chewable [Aspirin Chewable 81 mg PO DAILY 11/21/17 02/20/20 History Tablet] Citalopram [CeleXA] 20 mg PO DAILY 06/06/18 02/20/20 History Cholecalciferol (Vitamin D3) 50,000 unit PO Q7DAYS 06/08/19 02/20/20 History [Decara] Carvedilol [Coreg] 12.5 mg PO BID tab 01/07/20 02/20/20 Rx Cyanocobalamin (Vitamin B-12) 1,000 mcg PO DAILY #30 tab 01/07/20 02/20/20 Rx [Vitamin B-12] Apixaban [Eliquis] 5 mg PO BID 02/20/20 02/20/20 History valACYclovir HCl [Valacyclovir] 500 mg PO DAILY 02/20/20 02/20/20 History Midodrine HCl [ProAmatine] 10 mg PO TID #90 tab 02/26/20 Rx Allergies: No Known Allergies Allergy (Verified 01/03/20 04:12) - Discharge Instructions Activity:: Activity as Tolerated Nourishment:: Heart Healthy Diet - Follow up Plan Referrals: Karsten Cardenas MD [ Not on Staff] - 7 Days Unknown,Unknown [Primary Care Provider] - 7 Days Disposition: HOME Quality - Care Measures CORE MEASURES:: N/A
== END 2020-02-26 17:21 | disposition home or self-care (01) | DRG 312 ==
LOC: ERS 05:32 → ERHOLD 08:33 → 2SE 11:17
PROVIDERS: ADMIT Emergency Medicine; ATTEND Internal Medicine
DX: I95.1 Orthostatic hypotension (principal); C90.00 Multiple myeloma not having achieved remission; I50.32 Chronic diastolic (congestive) heart failure; I25.10 Atherosclerotic heart disease of native coronary artery without angina pectoris; I11.0 Hypertensive heart disease with heart failure; E83.42 Hypomagnesemia; E87.5 Hyperkalemia; E78.5 Hyperlipidemia, unspecified; R29.6 Repeated falls; I48.0 Paroxysmal atrial fibrillation; D64.9 Anemia, unspecified; E87.6 Hypokalemia; I25.2 Old myocardial infarction; Z90.49 Acquired absence of other specified parts of digestive tract; Z87.891 Personal history of nicotine dependence; Z79.82 Long term (current) use of aspirin; Z79.891 Long term (current) use of opiate analgesic; Z79.01 Long term (current) use of anticoagulants
CPT/HCPCS: 36415; 70450; 72125; 80048; 80053; 82533; 82553; 83735; 84443; 84484; 85025; 85379; 87635; 93005; 96374; J1160; J3475; J7050; U0003

== ENCOUNTER 2020-11-05 20:21 | Inpatient (IN) | payer MEDICARE, BC ==
[2020-11-05 21:14] LABS: Actual Bicarbonate (HCO3v) 28 mEq/L (22-28); Analyzer IN Cardio ER; Calcium, Ionized (venous) 1.12 mmol/L (1.16-1.32); Chloride (VBG) 100 mmol/L (98-106); Hemoglobin (Hb) 13.9 g/dL (12.6-17.4); Potassium (VBG) 3.86 mmol/L (3.70-5.30); Sodium 133.4 mmol/L (133-146); pH (venous) 7.42 (7.32-7.43)
[2020-11-05 21:29] LABS: #Eosinphils 0.1 thou/uL (0.0-0.7); #Lymphocytes 2.5 thou/uL (1.20-3.40); #Monocytes 1.3 thou/uL (0.11-0.59); #Neutrophils 7.1 thou/uL (1.40-6.50); %Basophils 0.3 % (0.0-1.0); %Eosinophils 0.9 % (0.0-10.0); %Lymphocytes 22.5 % (21.0-51.0); %Monocytes 11.6 % (0.0-10.0); %Neutrophils 64.6 % (42.0-75.0); Hemoglobin 13.6 g/dL (14.0-18.0); Mean Corpuscular HGB CONC 34.7 g/dL (32.0-36.0); Mean Corpuscular Hemoglobin 35.7 pg (27.0-31.0); Mean Platelet Volume 9.2 fL (7.4-10.4); Platelet Count 213 thou/uL (130-400); RBC Distribution Width 19.6 % (11.5-14.5)
[2020-11-05] MEDS ORDERED: Magnesium 2 GM/50 ML BAG (IN WATER) ONE (21:37)
[2020-11-05] MEDS ORDERED: Boostrix 0.5 ML (Tdap) VIAL ONE (21:37)
[2020-11-05] MEDS ORDERED: Calcium Gluc 4.6 MEQ/10 ML (100 MG/ML) ONE (21:37)
[2020-11-05 21:40] LABS: ALT (SGPT) 16 U/L (8-55); AST (SGOT) 20 U/L (5-34); Albumin 3.5 g/dL (3.4-4.8); Alkaline Phosphatase 65 U/L (40-110); Anion Gap 14 mmol/L (10-20); BUN (Urea Nitrogen) 17 mg/dL (8.4-25.7); Bilirubin, Total 0.9 mg/dL (0.2-1.2); Calc. Creatinine Clearance 0 mL/min (70-130); Calcium 9.1 mg/dL (7.8-10.44); Carbon Dioxide 24 mmol/L (23-31); Chloride 99 mmol/L (98-107); Globulin 3.2 g/dL (2.4-3.5); Glucose 112 mg/dL (83-110); Potassium 3.8 mmol/L (3.5-5.1); Protein, Total 6.7 g/dL (5.8-8.1); Sodium 133 mmol/L (136-145)
[2020-11-05 21:49] LABS: MDiff Complete? YES
[2020-11-05 22:25] LABS: INR-International Normal Ratio 1.2; Prothrombin Time 14.7 sec (12.0-14.7)
[2020-11-05 22:26] LABS: PTT 36.8 sec (22.9-36.1)
[2020-11-05] MEDS ORDERED: niCARdipine 20MG In NaCl 20 MG/200 ML BAG ONE (22:31)
[2020-11-05] MEDS ORDERED: Lidocaine 1% (PF) 30 ML VIAL ONE (23:09)
[2020-11-05] MEDS ORDERED: Acetaminophen 325 MG TAB PO PRN (23:59)
[2020-11-05] MEDS ORDERED: Ondansetron ODT 4 MG TAB PO PRN (23:59)
[2020-11-05] MEDS ORDERED: Ondansetron PF 4 MG/2 ML Vial IVP PRN (23:59)
[2020-11-06 00:10] LABS: Bacteria/HPF None Seen HPF (None Seen); Bilirubin Negative (Negative); Blood, Urine 1+ (Negative); Clarity Clear (Clear); Glucose, Urine (Dipstick) Normal (Negative); Ketone, Urine Negative (Negative); Leukocyte Negative Leu/uL (Negative); Nitrite Negative (Negative); Protein, Urine (Dipstick) 30 mg/dL (Neg-Trace); RBC/HPF 0-3 HPF (0-3); Specific Gravity, Urine 1.022 (1.002-1.036); Squamous Epithelial None Seen HPF (0-3); Urobilinogen Normal mg/dL (Less than 2); WBC/HPF 0-3 HPF (0-3)
[2020-11-06 00:39] LABS: SARS-CoV-2 NAA Rapid Test Not Detected (NotDetected)
[2020-11-06] MEDS ORDERED: niCARdipine 25 MG in Sodium Chloride 0.9% 250 ML 240 ML IVPB PRN (00:54)
[2020-11-06 01:59] LABS: Troponin I 0.015 ng/mL (< 0.028)
[2020-11-06 04:50] LABS: #Eosinphils 0.1 thou/uL (0.0-0.7); #Lymphocytes 2.5 thou/uL (1.20-3.40); #Monocytes 1.3 thou/uL (0.11-0.59); #Neutrophils 5.6 thou/uL (1.40-6.50); %Basophils 0.2 % (0.0-1.0); %Eosinophils 0.8 % (0.0-10.0); %Lymphocytes 26.4 % (21.0-51.0); %Monocytes 13.7 % (0.0-10.0); %Neutrophils 58.8 % (42.0-75.0); Hemoglobin 13.3 g/dL (14.0-18.0); Mean Corpuscular HGB CONC 34.3 g/dL (32.0-36.0); Mean Corpuscular Hemoglobin 35.1 pg (27.0-31.0); Mean Platelet Volume 9.2 fL (7.4-10.4); Platelet Count 206 thou/uL (130-400); RBC Distribution Width 19.6 % (11.5-14.5); Red Blood Cell (RBC) Count 3.79 mill/uL (4.70-6.10); White Blood Cell (WBC) Count 9.6 thou/uL (4.8-10.8)
[2020-11-06 05:02] LABS: Anion Gap 15 mmol/L (10-20); BUN (Urea Nitrogen) 16 mg/dL (8.4-25.7); Calc. Creatinine Clearance 80 mL/min (70-130); Calcium 8.5 mg/dL (7.8-10.44); Carbon Dioxide 21 mmol/L (23-31); Chloride 103 mmol/L (98-107); Glucose 117 mg/dL (83-110); Potassium 3.5 mmol/L (3.5-5.1); Sodium 135 mmol/L (136-145)
[2020-11-06 05:07] LABS: Troponin I 0.017 ng/mL (< 0.028)
[2020-11-06] MEDS: Labetalol HCl 100 MG/20 ML VIAL SLOW IVP PRN ×5 (06:21→22:29)
[2020-11-06] MEDS: hydrALAZINE 20 MG/ML VIAL SLOW IVP PRN (12:09)
[2020-11-06] MEDS: Ferrous Sulfate 325 MG TAB PO SCH (16:39)
[2020-11-06] MEDS: Atorvastatin Calcium 20 MG TAB PO SCH (20:07)
[2020-11-07] MEDS: Labetalol HCl 100 MG/20 ML VIAL SLOW IVP PRN ×2 (03:20→12:59)
[2020-11-07 05:44] VITALS: BMI 24.7
[2020-11-07] MEDS: Ferrous Sulfate 325 MG TAB PO SCH (07:46)
[2020-11-07] MEDS: Citalopram 10 MG TAB PO SCH (07:55)
[2020-11-07] MEDS ORDERED: Cyanocobalamin (Vitamin B-12) 1,000 MCG TAB PO SCH (09:00)
[2020-11-07] MEDS ORDERED: Ergocalciferol 1.25 MG(50,000 UNITS) CAP PO SCH (09:00)
[2020-11-07] MEDS: hydrALAZINE 20 MG/ML VIAL SLOW IVP PRN (15:26)
[2020-11-07] MEDS: Atorvastatin Calcium 20 MG TAB PO SCH (21:22)
[2020-11-08] MEDS: hydrALAZINE 20 MG/ML VIAL SLOW IVP PRN (04:09)
[2020-11-08 05:32] LABS: Eosinophils 1 % (0-10); Lymphocytes 35 % (21-51); MDiff Complete? YES; Macrocytosis SLIGHT = 6-15 cells (100X) (0-5/hpf); Mean Corpuscular HGB CONC 32.6 g/dL (32.0-36.0); Mean Corpuscular Hemoglobin 34.3 pg (27.0-31.0); Mean Platelet Volume 9.2 fL (7.4-10.4); Monocytes 9 % (0-10); Neutrophil 55 % (42-75); Platelet Count 198 thou/uL (130-400); Platelet Morphology Comment Appears Adequate; RBC Distribution Width 19.3 % (11.5-14.5); Red Blood Cell (RBC) Count 4.08 mill/uL (4.70-6.10); White Blood Cell (WBC) Count 10.4 thou/uL (4.8-10.8)
[2020-11-08 05:46] LABS: Anion Gap 16 mmol/L (10-20); BUN (Urea Nitrogen) 15 mg/dL (8.4-25.7); Calc. Creatinine Clearance 72 mL/min (70-130); Carbon Dioxide 16 mmol/L (23-31); Chloride 103 mmol/L (98-107); Glucose 101 mg/dL (83-110); Potassium 4.3 mmol/L (3.5-5.1); Sodium 131 mmol/L (136-145)
[2020-11-08] MEDS: Labetalol HCl 100 MG/20 ML VIAL SLOW IVP PRN ×3 (08:34→18:00)
[2020-11-08] MEDS: Citalopram 10 MG TAB PO SCH (08:34)
[2020-11-08] MEDS ORDERED: Amlodipine 5 MG TAB PO SCH ×2 (09:00→15:00)
[2020-11-08] MEDS ORDERED: ALPRAZolam 0.25 MG TAB PO PRN (17:43)
[2020-11-08] MEDS: Atorvastatin Calcium 20 MG TAB PO SCH (21:55)
[2020-11-09] MEDS: hydrALAZINE 20 MG/ML VIAL SLOW IVP PRN ×3 (05:21→15:54)
[2020-11-09 05:38] LABS: Anion Gap 9 mmol/L (10-20); BUN (Urea Nitrogen) 15 mg/dL (8.4-25.7); Calc. Creatinine Clearance 75 mL/min (70-130); Calcium 8.7 mg/dL (7.8-10.44); Carbon Dioxide 29 mmol/L (23-31); Chloride 99 mmol/L (98-107); Glucose 102 mg/dL (83-110); Potassium 3.4 mmol/L (3.5-5.1); Sodium 134 mmol/L (136-145)
[2020-11-09 05:40] LABS: Band 3 % (5-11); Eosinophils 1 % (0-10); Hemoglobin 12.9 g/dL (14.0-18.0); Lymphocytes 24 % (21-51); MDiff Complete? YES; Mean Corpuscular HGB CONC 35.1 g/dL (32.0-36.0); Mean Corpuscular Hemoglobin 36.3 pg (27.0-31.0); Mean Platelet Volume 9.2 fL (7.4-10.4); Monocytes 17 % (0-10); Neutrophil 55 % (42-75); Platelet Count 207 thou/uL (130-400); Platelet Morphology Comment Appears Adequate; Red Blood Cell (RBC) Count 3.56 mill/uL (4.70-6.10); White Blood Cell (WBC) Count 10.3 thou/uL (4.8-10.8)
[2020-11-09] MEDS: Labetalol HCl 100 MG/20 ML VIAL SLOW IVP PRN ×2 (05:49→06:12)
[2020-11-09] MEDS: Citalopram 10 MG TAB PO SCH (08:35)
[2020-11-09] MEDS ORDERED: Amlodipine 5 MG TAB PO SCH ×2 (09:00→11:45)
[2020-11-09] MEDS ORDERED: Potassium Chloride 20 MEQ TAB PO SCH (09:45)
[2020-11-09] MEDS ORDERED: Loperamide HCl 2 MG CAP PO SCH (11:45)
[2020-11-09] MEDS ORDERED: Loperamide HCl 2 MG CAP PO PRN (16:47)
[2020-11-09] MEDS ORDERED: NIFEdipine XL 30 MG TAB PO SCH (17:00)
[2020-11-09] MEDS: Atorvastatin Calcium 20 MG TAB PO SCH (20:47)
[2020-11-10] MEDS: Citalopram 10 MG TAB PO SCH (08:05)
[2020-11-10] MEDS ORDERED: Loperamide HCl 2 MG CAP PO SCH (09:00)
[2020-11-10 15:33] VITALS: BP 151/72; TEMP 98.2
== END 2020-11-10 16:24 | DRG 65 ==
LOC: ERS 20:21 → CCU 22:44 → 2SE 11-07 21:07
PROVIDERS: ADMIT Student in an Organized Health Care Education/Training Program; ATTEND Internal Medicine
DX: I61.9 Nontraumatic intracerebral hemorrhage, unspecified (principal); I16.1 Hypertensive emergency; E87.1 Hypo-osmolality and hyponatremia; N17.9 Acute kidney failure, unspecified; I24.8 Other forms of acute ischemic heart disease; C90.00 Multiple myeloma not having achieved remission; I13.0 Hypertensive heart and chronic kidney disease with heart failure and stage 1 through stage 4 chronic kidney disease, or unspecified chronic kidney disease; R29.6 Repeated falls; N18.30 Chronic kidney disease, stage 3 unspecified; K52.9 Noninfective gastroenteritis and colitis, unspecified; I95.1 Orthostatic hypotension; Z20.822 Contact with and (suspected) exposure to COVID-19; I25.10 Atherosclerotic heart disease of native coronary artery without angina pectoris; I50.9 Heart failure, unspecified; Z95.5 Presence of coronary angioplasty implant and graft; Z79.899 Other long term (current) drug therapy; Z79.82 Long term (current) use of aspirin; I25.2 Old myocardial infarction; Z90.49 Acquired absence of other specified parts of digestive tract; Z90.81 Acquired absence of spleen; Z86.711 Personal history of pulmonary embolism
CPT/HCPCS: 36415; 36416; 70450; 71045; 72125; 80048; 80053; 81003; 81015; 82553; 82805; 84484; 85025; 85610; 85730; 90715; 93005; 95712; 95819; 95957; J0360; J1642; J2001; J3475; J7050; U0002; U0005

== ENCOUNTER 2021-02-17 08:12 | Emergency (ER) | payer MEDICARE, BC ==
[2021-02-17] MEDS ORDERED: Metoclopramide HCl 10 MG/2 ML VIAL ONE (08:40)
[2021-02-17] MEDS ORDERED: diphenhydrAMINE 50 MG/ML VIAL ONE (08:40)
[2021-02-17 09:57] LABS: ALT (SGPT) 25 U/L (8-55); AST (SGOT) 21 U/L (5-34); Albumin 4.1 g/dL (3.4-4.8); Alkaline Phosphatase 74 U/L (40-110); Anion Gap 11 mmol/L (10-20); BUN (Urea Nitrogen) 13 mg/dL (8.4-25.7); Calc. Creatinine Clearance 0 mL/min (70-130); Calcium 9.6 mg/dL (7.8-10.44); Carbon Dioxide 29 mmol/L (23-31); Chloride 100 mmol/L (98-107); Globulin 3.6 g/dL (2.4-3.5); Glucose 154 mg/dL (83-110); Protein, Total 7.7 g/dL (5.8-8.1); Sodium 136 mmol/L (136-145)
[2021-02-17] MEDS ORDERED: Fluorescein Opthalmic Strip ONE (10:13)
[2021-02-17 10:44] LABS: #Lymphocytes 2.5 thou/uL (1.20-3.40); #Monocytes 0.8 thou/uL (0.11-0.59); #Neutrophils 3.8 thou/uL (1.40-6.50); %Basophils 0.2 % (0.0-1.0); %Eosinophils 0.3 % (0.0-10.0); %Monocytes 11.4 % (0.0-10.0); %Neutrophils 53.2 % (42.0-75.0); Band 1 % (5-11); Hemoglobin 16.1 g/dL (14.0-18.0); Lymphocytes 27 % (21-51); MDiff Complete? YES; Mean Corpuscular HGB CONC 33.6 g/dL (32.0-36.0); Mean Platelet Volume 8.8 fL (7.4-10.4); Monocytes 6 % (0-10); Neutrophil 53 % (42-75); Platelet Count 189 thou/uL (130-400); Platelet Morphology Comment Appears Adequate; RBC Morphology Normal; Reactive Lymphocytes 13 % (0-10); Red Blood Cell (RBC) Count 4.48 mill/uL (4.70-6.10); White Blood Cell (WBC) Count 7.1 thou/uL (4.8-10.8)
[2021-02-17] MEDS ORDERED: Metoclopramide HCl 10 MG/2 ML VIAL IVP SCH (10:45)
[2021-02-17] MEDS ORDERED: diphenhydrAMINE 50 MG/ML VIAL IVP SCH (10:45)
[2021-02-17] MEDS ORDERED: Fluorescein Opthalmic Strip EA EYE SCH (10:45)
[2021-02-17] MEDS ORDERED: valACYclovir 500 MG TAB PO SCH ×2 (10:45→11:30)
[2021-02-17] MEDS ORDERED: Gabapentin 300 MG CAP PO SCH (11:45)
== END 2021-02-17 14:34 | disposition home or self-care (01) ==
LOC: ERS 08:12
DX: B02.9 Zoster without complications (principal); I11.0 Hypertensive heart disease with heart failure; I50.9 Heart failure, unspecified; R51.9 Headache, unspecified; I25.2 Old myocardial infarction; Z87.891 Personal history of nicotine dependence; Z79.899 Other long term (current) drug therapy
CPT/HCPCS: 36415; 70450; 80053; 84484; 85025; 93005; 96365; 96375; J1200; J2765

== ENCOUNTER 2021-09-16 14:57 | Inpatient (IN) | payer OTHER, MEDICARE, BC ==
[2021-09-16] MEDS ORDERED: Fentanyl 100 MCG/2 ML VIAL ONE (15:35)
[2021-09-16] MEDS ORDERED: Ondansetron PF 4 MG/2 ML Vial ONE (15:36)
[2021-09-16 16:24] LABS: #Lymphocytes 1.9 thou/uL (1.20-3.40); #Monocytes 1.1 thou/uL (0.11-0.59); #Neutrophils 10.9 thou/uL (1.40-6.50); %Basophils 0.1 % (0.0-1.0); %Eosinophils 0.2 % (0.0-10.0); %Lymphocytes 13.4 % (21.0-51.0); %Monocytes 8.1 % (0.0-10.0); %Neutrophils 78.2 % (42.0-75.0); Hemoglobin 15.4 g/dL (14.0-18.0); Mean Corpuscular HGB CONC 33.5 g/dL (32.0-36.0); Mean Corpuscular Hemoglobin 36.5 pg (27.0-31.0); Mean Platelet Volume 7.7 fL (7.4-10.4); Platelet Count 177 thou/uL (130-400); RBC Distribution Width 12.8 % (11.5-14.5); Red Blood Cell (RBC) Count 4.23 mill/uL (4.70-6.10); White Blood Cell (WBC) Count 13.9 thou/uL (4.8-10.8)
[2021-09-16 16:43] LABS: ALT (SGPT) 33 U/L (8-55); AST (SGOT) 31 U/L (5-34); Alkaline Phosphatase 75 U/L (40-110); Anion Gap 15 mmol/L (10-20); BUN (Urea Nitrogen) 23 mg/dL (8.4-25.7); Calc. Creatinine Clearance 0 mL/min (70-130); Calcium 9.6 mg/dL (7.8-10.44); Carbon Dioxide 24 mmol/L (23-31); Chloride 100 mmol/L (98-107); Globulin 3.4 g/dL (2.4-3.5); Glucose 119 mg/dL (83-110); Potassium 4.2 mmol/L (3.5-5.1); Protein, Total 7.4 g/dL (5.8-8.1); Sodium 135 mmol/L (136-145)
[2021-09-16 16:56] LABS: MDiff Complete? YES; Macrocytosis SLIGHT = 6-15 cells (100X) (0-5/hpf); Platelet Morphology Comment Appears Adequate
[2021-09-16] MEDS ORDERED: Dextrose 50% Abboject 50 ML SYRINGE SLOW IVP PRN (18:20)
[2021-09-16] MEDS ORDERED: Ondansetron PF 4 MG/2 ML Vial IVP PRN (18:20)
[2021-09-16] MEDS ORDERED: Ondansetron ODT 4 MG TAB PO PRN (18:20)
[2021-09-16] MEDS ORDERED: Dextrose 5% in Water 1,000 ML IV PRN (18:20)
[2021-09-16] MEDS ORDERED: traMADol HCl 50 MG TAB PO PRN (18:23)
[2021-09-16] MEDS ORDERED: Cepastat Lozenges 1 LOZ PO PRN (18:23)
[2021-09-16] MEDS: Cyclobenzaprine 10 MG TAB PO PRN (18:44)
[2021-09-16] MEDS ORDERED: Acetaminophen 500 MG TAB PO SCH (18:45)
[2021-09-16] MEDS ORDERED: traMADol HCl 50 MG TAB PO SCH (18:45)
[2021-09-16] MEDS ORDERED: Gabapentin 100 MG CAP PO SCH (18:45)
[2021-09-16] MEDS ORDERED: Famotidine 20 MG TAB PO SCH (21:00)
[2021-09-16] MEDS: Famotidine 20 MG TAB PO SCH (21:48)
[2021-09-16] MEDS: Senokot S 8.6-50 MG TAB PO SCH (21:48)
[2021-09-16] MEDS: hydrALAZINE 20 MG/ML VIAL SLOW IVP PRN (21:56)
[2021-09-16 22:21] VITALS: BMI 26.4
[2021-09-16] MEDS ORDERED: Sodium Chloride 0.9% 1,000 ML IV SCH (23:55)
[2021-09-17] MEDS: traMADol HCl 50 MG TAB PO SCH ×5 (00:11→22:37)
[2021-09-17] MEDS: Acetaminophen 500 MG TAB PO SCH ×5 (00:14→22:38)
[2021-09-17 02:05] LABS: SARS-CoV-2 NAA Rapid Test Not Detected (NotDetected)
[2021-09-17] MEDS: Gabapentin 100 MG CAP PO SCH ×3 (05:19→22:38)
[2021-09-17 06:14] LABS: #Eosinphils 0.2 thou/uL (0.0-0.7); #Lymphocytes 1.9 thou/uL (1.20-3.40); #Monocytes 0.9 thou/uL (0.11-0.59); #Neutrophils 4.8 thou/uL (1.40-6.50); %Basophils 0.3 % (0.0-1.0); %Eosinophils 2.2 % (0.0-10.0); %Lymphocytes 24.5 % (21.0-51.0); %Monocytes 11.8 % (0.0-10.0); %Neutrophils 61.3 % (42.0-75.0); Mean Corpuscular HGB CONC 33.5 g/dL (32.0-36.0); Mean Corpuscular Hemoglobin 36.9 pg (27.0-31.0); Mean Platelet Volume 8.5 fL (7.4-10.4); Platelet Count 137 thou/uL (130-400); RBC Distribution Width 12.3 % (11.5-14.5); Red Blood Cell (RBC) Count 4.05 mill/uL (4.70-6.10); White Blood Cell (WBC) Count 7.8 thou/uL (4.8-10.8)
[2021-09-17 06:36] LABS: Anion Gap 14 mmol/L (10-20); BUN (Urea Nitrogen) 24 mg/dL (8.4-25.7); Calc. Creatinine Clearance 63 mL/min (70-130); Calcium 9.2 mg/dL (7.8-10.44); Carbon Dioxide 26 mmol/L (23-31); Chloride 99 mmol/L (98-107); Glucose 96 mg/dL (83-110); Magnesium 1.8 mg/dL (1.6-2.6); Potassium 3.7 mmol/L (3.5-5.1); Sodium 135 mmol/L (136-145)
[2021-09-17 06:39] LABS: Phosphorus 3.8 mg/dL (2.3-4.7)
[2021-09-17] MEDS: Senokot S 8.6-50 MG TAB PO SCH ×2 (08:53→20:05)
[2021-09-17] MEDS: Polyethylene Glycol 3350 17 GM Packet PO SCH (08:53)
[2021-09-17] MEDS: Famotidine 20 MG TAB PO SCH ×2 (08:53→20:04)
[2021-09-17] MEDS ORDERED: Magnesium 2 GM/50 ML(in water) 2 GM in Premix Bag 1 BAG IVPB SCH (09:00)
[2021-09-17] MEDS ORDERED: Potassium Chloride 40 MEQ in Premix Bag 1 BAG IVPB SCH (09:00)
[2021-09-17] MEDS ORDERED: fentaNYL Citrate/PF 100 MCG/2 ML SYRINGE ONE (11:02)
[2021-09-17] MEDS ORDERED: Dexmedetomidine 200 MCG/2 ML VIAL ONE (11:03)
[2021-09-17] MEDS ORDERED: CEFAZOLIN 2 GM VIAL ONE (11:56)
[2021-09-17] MEDS ORDERED: Sodium Chloride 0.9% 100 ML ONE (11:56)
[2021-09-17] MEDS ORDERED: ceFAZolin 2 GM/Dextrose 50 ML 2 GM in Premix Bag 1 BAG IVPB SCH (12:00)
[2021-09-17] MEDS ORDERED: PROPOFOL 200 MG/20 ML VIAL ONE (12:14)
[2021-09-17] MEDS ORDERED: ePHEDrine 50 MG/ML VIAL ONE (12:14)
[2021-09-17] MEDS ORDERED: Dexamethasone 20 MG/5 ML VIAL ONE (12:14)
[2021-09-17] MEDS ORDERED: Glycopyrrolate 0.2 MG/ML 5 ML SYRINGE ONE (12:14)
[2021-09-17] MEDS ORDERED: Rocuronium Bromide 10 MG/ML (10ML VIAL) ONE (12:14)
[2021-09-17] MEDS ORDERED: Ondansetron PF 4 MG/2 ML Vial ONE (12:14)
[2021-09-17] MEDS ORDERED: PHENYLEPHRINE-NS 100 MCG/ML 10 ML SYRINGE ONE (12:14)
[2021-09-17] MEDS ORDERED: Lidocaine 1% PF 5 ML VIAL ONE (12:14)
[2021-09-17] MEDS ORDERED: Promethazine HCl 25 MG/ML VIAL IVPB PRN (14:09)
[2021-09-17] MEDS ORDERED: Ondansetron HCl/PF 4 MG/2 ML Vial IVP PRN (14:09)
[2021-09-17] MEDS ORDERED: Promethazine HCl 25 MG/ML VIAL IM PRN (14:09)
[2021-09-17] MEDS: CEFAZOLIN 2 GM in Sodium Chloride 0.9% 100 ML IVPB SCH (20:03)
[2021-09-17] MEDS: Aspirin 81 mg Enteric Coated Tablet PO SCH (20:47)
[2021-09-17] MEDS: Atorvastatin Calcium 40 MG TAB PO SCH (20:47)
[2021-09-18] MEDS: CEFAZOLIN 2 GM in Sodium Chloride 0.9% 100 ML IVPB SCH ×2 (03:31→11:13)
[2021-09-18] MEDS: Acetaminophen 500 MG TAB PO SCH ×4 (05:40→23:45)
[2021-09-18] MEDS: traMADol HCl 50 MG TAB PO SCH ×4 (05:41→23:43)
[2021-09-18] MEDS: Gabapentin 100 MG CAP PO SCH ×3 (05:41→20:38)
[2021-09-18 06:00] LABS: Anion Gap 13 mmol/L (10-20); BUN (Urea Nitrogen) 26 mg/dL (8.4-25.7); Calc. Creatinine Clearance 61 mL/min (70-130); Calcium 8.5 mg/dL (7.8-10.44); Carbon Dioxide 22 mmol/L (23-31); Chloride 100 mmol/L (98-107); Glucose 140 mg/dL (83-110); Phosphorus 2.7 mg/dL (2.3-4.7); Potassium 4.7 mmol/L (3.5-5.1); Sodium 130 mmol/L (136-145)
[2021-09-18 06:22] LABS: #Lymphocytes 1.6 thou/uL (1.20-3.40); #Monocytes 1.2 thou/uL (0.11-0.59); #Neutrophils 7.7 thou/uL (1.40-6.50); %Eosinophils 0.1 % (0.0-10.0); %Monocytes 11.6 % (0.0-10.0); %Neutrophils 73.2 % (42.0-75.0); Hemoglobin 12.4 g/dL (14.0-18.0); Mean Corpuscular HGB CONC 32.9 g/dL (32.0-36.0); Mean Corpuscular Hemoglobin 36.7 pg (27.0-31.0); Mean Platelet Volume 8.9 fL (7.4-10.4); Platelet Count 121 thou/uL (130-400); RBC Distribution Width 12.4 % (11.5-14.5); Red Blood Cell (RBC) Count 3.39 mill/uL (4.70-6.10); White Blood Cell (WBC) Count 10.6 thou/uL (4.8-10.8)
[2021-09-18] MEDS: Ferrous Sulfate 325 MG TAB PO SCH (08:27)
[2021-09-18] MEDS: Citalopram 20 MG TAB PO SCH (08:27)
[2021-09-18] MEDS: Famotidine 20 MG TAB PO SCH ×2 (08:27→20:38)
[2021-09-18] MEDS: Aspirin 81 mg Enteric Coated Tablet PO SCH ×2 (08:28→20:38)
[2021-09-18] MEDS: Polyethylene Glycol 3350 17 GM Packet PO SCH (08:28)
[2021-09-18] MEDS: Senokot S 8.6-50 MG TAB PO SCH ×2 (08:28→20:39)
[2021-09-18] MEDS: Atorvastatin Calcium 40 MG TAB PO SCH (20:38)
[2021-09-19] MEDS: Gabapentin 100 MG CAP PO SCH ×3 (05:46→21:28)
[2021-09-19] MEDS: Acetaminophen 500 MG TAB PO SCH ×3 (05:46→18:13)
[2021-09-19] MEDS: traMADol HCl 50 MG TAB PO SCH ×3 (05:46→18:14)
[2021-09-19 05:48] LABS: Anion Gap 12 mmol/L (10-20); BUN (Urea Nitrogen) 28 mg/dL (8.4-25.7); Calc. Creatinine Clearance 76 mL/min (70-130); Calcium 8.6 mg/dL (7.8-10.44); Carbon Dioxide 25 mmol/L (23-31); Chloride 103 mmol/L (98-107); Glucose 104 mg/dL (83-110); Phosphorus 2.8 mg/dL (2.3-4.7); Potassium 4.1 mmol/L (3.5-5.1); Sodium 136 mmol/L (136-145)
[2021-09-19 05:55] LABS: #Eosinphils 0.2 thou/uL (0.0-0.7); #Lymphocytes 1.6 thou/uL (1.20-3.40); #Monocytes 1.3 thou/uL (0.11-0.59); #Neutrophils 6.5 thou/uL (1.40-6.50); %Basophils 0.2 % (0.0-1.0); %Eosinophils 2.5 % (0.0-10.0); %Lymphocytes 16.1 % (21.0-51.0); %Monocytes 13.8 % (0.0-10.0); %Neutrophils 67.4 % (42.0-75.0); Hemoglobin 12.5 g/dL (14.0-18.0); Mean Corpuscular HGB CONC 32.9 g/dL (32.0-36.0); Mean Platelet Volume 9.2 fL (7.4-10.4); Platelet Count 127 thou/uL (130-400); RBC Distribution Width 12.5 % (11.5-14.5); Red Blood Cell (RBC) Count 3.38 mill/uL (4.70-6.10); White Blood Cell (WBC) Count 9.7 thou/uL (4.8-10.8)
[2021-09-19] MEDS: Lisinopril 2.5 MG TAB PO SCH (08:56)
[2021-09-19] MEDS: Aspirin 81 mg Enteric Coated Tablet PO SCH ×2 (08:57→21:28)
[2021-09-19] MEDS: Famotidine 20 MG TAB PO SCH ×2 (08:57→21:28)
[2021-09-19] MEDS: Citalopram 20 MG TAB PO SCH (08:57)
[2021-09-19] MEDS: Ferrous Sulfate 325 MG TAB PO SCH (08:57)
[2021-09-19] MEDS: Polyethylene Glycol 3350 17 GM Packet PO SCH (08:58)
[2021-09-19] MEDS: Senokot S 8.6-50 MG TAB PO SCH ×2 (08:58→21:32)
[2021-09-19] MEDS ORDERED: Lisinopril 2.5 MG TAB PO SCH (09:00)
[2021-09-19] MEDS ORDERED: Sodium Chloride 0.9% 500 ML IV SCH (09:45)
[2021-09-19] MEDS: Atorvastatin Calcium 40 MG TAB PO SCH (21:28)
[2021-09-20] MEDS: traMADol HCl 50 MG TAB PO SCH ×4 (01:03→18:14)
[2021-09-20] MEDS: Acetaminophen 500 MG TAB PO SCH ×4 (01:03→18:15)
[2021-09-20] MEDS: hydrALAZINE 20 MG/ML VIAL SLOW IVP PRN ×3 (04:21→21:49)
[2021-09-20 06:07] LABS: #Basophils 0.1 thou/uL (0.0-0.2); #Eosinphils 0.4 thou/uL (0.0-0.7); #Lymphocytes 2.5 thou/uL (1.20-3.40); #Monocytes 1.3 thou/uL (0.11-0.59); #Neutrophils 5.6 thou/uL (1.40-6.50); %Basophils 0.5 % (0.0-1.0); %Lymphocytes 24.9 % (21.0-51.0); %Monocytes 13.7 % (0.0-10.0); %Neutrophils 56.9 % (42.0-75.0); Hemoglobin 12.3 g/dL (14.0-18.0); Mean Corpuscular HGB CONC 33.1 g/dL (32.0-36.0); Mean Corpuscular Hemoglobin 36.7 pg (27.0-31.0); Mean Platelet Volume 8.8 fL (7.4-10.4); Platelet Count 140 thou/uL (130-400); RBC Distribution Width 12.5 % (11.5-14.5); Red Blood Cell (RBC) Count 3.34 mill/uL (4.70-6.10); White Blood Cell (WBC) Count 9.8 thou/uL (4.8-10.8)
[2021-09-20] MEDS: Gabapentin 100 MG CAP PO SCH ×3 (06:12→20:34)
[2021-09-20 06:29] LABS: Anion Gap 11 mmol/L (10-20); BUN (Urea Nitrogen) 20 mg/dL (8.4-25.7); Calc. Creatinine Clearance 86 mL/min (70-130); Calcium 8.5 mg/dL (7.8-10.44); Carbon Dioxide 26 mmol/L (23-31); Chloride 103 mmol/L (98-107); Glucose 92 mg/dL (83-110); Magnesium 1.7 mg/dL (1.6-2.6); Phosphorus 2.3 mg/dL (2.3-4.7); Potassium 3.8 mmol/L (3.5-5.1); Sodium 136 mmol/L (136-145)
[2021-09-20] MEDS: Citalopram 20 MG TAB PO SCH (09:15)
[2021-09-20] MEDS: Aspirin 81 mg Enteric Coated Tablet PO SCH ×2 (09:15→20:33)
[2021-09-20] MEDS: Lisinopril 2.5 MG TAB PO SCH (09:15)
[2021-09-20] MEDS: Ferrous Sulfate 325 MG TAB PO SCH (09:15)
[2021-09-20] MEDS: Polyethylene Glycol 3350 17 GM Packet PO SCH (09:16)
[2021-09-20] MEDS: Senokot S 8.6-50 MG TAB PO SCH ×2 (09:16→20:34)
[2021-09-20] MEDS: Famotidine 20 MG TAB PO SCH ×2 (09:16→20:33)
[2021-09-20] MEDS: Atorvastatin Calcium 40 MG TAB PO SCH (20:33)
[2021-09-20] MEDS ORDERED: Labetalol HCl 100 MG/20 ML VIAL SLOW IVP PRN (22:58)
[2021-09-20] MEDS ORDERED: cloNIDine 0.1 MG TAB PO SCH (23:00)
[2021-09-21] MEDS: traMADol HCl 50 MG TAB PO SCH ×2 (00:07→05:03)
[2021-09-21] MEDS: Acetaminophen 500 MG TAB PO SCH ×4 (00:07→21:24)
[2021-09-21] MEDS: Gabapentin 100 MG CAP PO SCH ×2 (05:03→15:07)
[2021-09-21] MEDS ORDERED: CEFAZOLIN 2 GM in Sodium Chloride 0.9% 100 ML IVPB SCH (08:45)
[2021-09-21 08:49] LABS: #Eosinphils 0.1 thou/uL (0.0-0.7); #Lymphocytes 2.2 thou/uL (1.20-3.40); #Monocytes 1.1 thou/uL (0.11-0.59); #Neutrophils 7.8 thou/uL (1.40-6.50); %Basophils 0.3 % (0.0-1.0); %Eosinophils 0.9 % (0.0-10.0); %Lymphocytes 19.4 % (21.0-51.0); %Monocytes 10.1 % (0.0-10.0); %Neutrophils 69.3 % (42.0-75.0); Hemoglobin 12.9 g/dL (14.0-18.0); Mean Corpuscular HGB CONC 32.8 g/dL (32.0-36.0); Mean Corpuscular Hemoglobin 36.3 pg (27.0-31.0); Mean Platelet Volume 8.4 fL (7.4-10.4); Platelet Count 169 thou/uL (130-400); RBC Distribution Width 12.3 % (11.5-14.5); Red Blood Cell (RBC) Count 3.54 mill/uL (4.70-6.10); White Blood Cell (WBC) Count 11.3 thou/uL (4.8-10.8)
[2021-09-21 09:24] LABS: Anion Gap 14 mmol/L (10-20); BUN (Urea Nitrogen) 19 mg/dL (8.4-25.7); Calc. Creatinine Clearance 84 mL/min (70-130); Calcium 8.8 mg/dL (7.8-10.44); Carbon Dioxide 24 mmol/L (23-31); Chloride 100 mmol/L (98-107); Glucose 136 mg/dL (83-110); Magnesium 1.6 mg/dL (1.6-2.6); Phosphorus 3.1 mg/dL (2.3-4.7); Potassium 3.8 mmol/L (3.5-5.1); Sodium 134 mmol/L (136-145)
[2021-09-21] MEDS ORDERED: Acetaminophen/Codeine 30-300mg Tablet PO PRN (10:00)
[2021-09-21] MEDS ORDERED: Acetaminophen 500 MG TAB PO SCH ×3 (10:00→16:00)
[2021-09-21] MEDS ORDERED: Acetaminophen/Codeine 30-300mg Tablet PO SCH (10:00)
[2021-09-21] MEDS: Citalopram 20 MG TAB PO SCH (10:07)
[2021-09-21] MEDS: Aspirin 81 mg Enteric Coated Tablet PO SCH ×2 (10:07→21:21)
[2021-09-21] MEDS: Cyclobenzaprine 10 MG TAB PO PRN ×2 (10:07→21:24)
[2021-09-21] MEDS: Lisinopril 5 MG TAB PO SCH (10:08)
[2021-09-21] MEDS: Famotidine 20 MG TAB PO SCH ×2 (10:09→21:21)
[2021-09-21] MEDS: Ferrous Sulfate 325 MG TAB PO SCH (10:10)
[2021-09-21] MEDS: Polyethylene Glycol 3350 17 GM Packet PO SCH (10:11)
[2021-09-21] MEDS: Senokot S 8.6-50 MG TAB PO SCH ×2 (10:11→21:21)
[2021-09-21] MEDS: Ketorolac Tromethamine 30 MG/ML VIAL IVP PRN ×2 (10:20→17:55)
[2021-09-21] MEDS ORDERED: Magnesium 2 GM/50 ML(in water) 4 GM in Premix Bag 1 BAG IVPB SCH (15:30)
[2021-09-21] MEDS: Atorvastatin Calcium 40 MG TAB PO SCH (21:21)
[2021-09-21] MEDS ORDERED: Sodium Chloride 0.9% 1,000 ML IV SCH (23:55)
[2021-09-22] MEDS: Acetaminophen 500 MG TAB PO SCH ×4 (04:50→22:45)
[2021-09-22] MEDS: Citalopram 20 MG TAB PO SCH (10:56)
[2021-09-22] MEDS: Aspirin 81 mg Enteric Coated Tablet PO SCH ×2 (10:56→21:03)
[2021-09-22] MEDS: Famotidine 20 MG TAB PO SCH ×2 (10:57→21:03)
[2021-09-22] MEDS: Ferrous Sulfate 325 MG TAB PO SCH (10:57)
[2021-09-22] MEDS: Lisinopril 5 MG TAB PO SCH (10:57)
[2021-09-22] MEDS: Senokot S 8.6-50 MG TAB PO SCH ×2 (10:57→21:03)
[2021-09-22] MEDS: Polyethylene Glycol 3350 17 GM Packet PO SCH (10:57)
[2021-09-22] MEDS ORDERED: CEFAZOLIN 2 GM VIAL ONE (13:59)
[2021-09-22] MEDS ORDERED: Sodium Chloride 0.9% 0 ML ONE (13:59)
[2021-09-22] MEDS ORDERED: SUGAMMADEX SODIUM 200 MG/2 ML VIAL ONE (14:04)
[2021-09-22] MEDS ORDERED: Famotidine/PF 20 mg/2ml Vial ONE (14:04)
[2021-09-22] MEDS ORDERED: fentaNYL Citrate/PF 100 MCG/2 ML SYRINGE ONE (14:24)
[2021-09-22] MEDS ORDERED: Metoclopramide HCl 10 MG/2 ML VIAL ONE (14:34)
[2021-09-22] MEDS ORDERED: PROPOFOL 200 MG/20 ML VIAL ONE (14:34)
[2021-09-22] MEDS ORDERED: ePHEDrine 50 MG/ML VIAL ONE (14:34)
[2021-09-22] MEDS ORDERED: Ondansetron PF 4 MG/2 ML Vial ONE (14:34)
[2021-09-22] MEDS ORDERED: Lidocaine 1% PF 5 ML VIAL ONE (14:34)
[2021-09-22] MEDS ORDERED: PHENYLEPHRINE-NS 100 MCG/ML 10 ML SYRINGE ONE (14:34)
[2021-09-22] MEDS ORDERED: Ketorolac Tromethamine 30 MG/ML VIAL ONE (14:34)
[2021-09-22] MEDS ORDERED: Promethazine HCl 25 MG/ML VIAL IVPB PRN (15:13)
[2021-09-22] MEDS ORDERED: Ondansetron HCl/PF 4 MG/2 ML Vial IVP PRN (15:13)
[2021-09-22] MEDS ORDERED: Promethazine HCl 25 MG/ML VIAL IM PRN (15:13)
[2021-09-22] MEDS: Atorvastatin Calcium 40 MG TAB PO SCH (21:03)
[2021-09-22] MEDS: CEFAZOLIN 2 GM in Sodium Chloride 0.9% 100 ML IVPB SCH (22:44)
[2021-09-22] MEDS: Cyclobenzaprine 10 MG TAB PO PRN (22:45)
[2021-09-23] MEDS: Acetaminophen 500 MG TAB PO SCH ×3 (05:25→17:04)
[2021-09-23] MEDS: CEFAZOLIN 2 GM in Sodium Chloride 0.9% 100 ML IVPB SCH (05:25)
[2021-09-23 05:47] LABS: Hemoglobin 9.3 g/dL (14.0-18.0); Mean Corpuscular HGB CONC 33.7 g/dL (32.0-36.0); Mean Corpuscular Hemoglobin 37.7 pg (27.0-31.0); Mean Platelet Volume 8.6 fL (7.4-10.4); Platelet Count 140 thou/uL (130-400); RBC Distribution Width 12.8 % (11.5-14.5); Red Blood Cell (RBC) Count 2.45 mill/uL (4.70-6.10)
[2021-09-23 06:08] LABS: Band 4 % (5-11); Eosinophils 3 % (0-10); Lymphocytes 15 % (21-51); MDiff Complete? YES; Macrocytosis SLIGHT = 6-15 cells (100X) (0-5/hpf); Monocytes 6 % (0-10); Neutrophil 72 % (42-75); Nucleated RBC 1 % (0)
[2021-09-23 06:50] LABS: Anion Gap 14 mmol/L (10-20); BUN (Urea Nitrogen) 54 mg/dL (8.4-25.7); Calc. Creatinine Clearance 43 mL/min (70-130); Calcium 8.2 mg/dL (7.8-10.44); Carbon Dioxide 23 mmol/L (23-31); Chloride 102 mmol/L (98-107); Glucose 121 mg/dL (83-110); Magnesium 2.2 mg/dL (1.6-2.6); Phosphorus 4.9 mg/dL (2.3-4.7); Sodium 135 mmol/L (136-145)
[2021-09-23] MEDS ORDERED: Sodium Chloride 0.9% 1,000 ML IV SCH (07:45)
[2021-09-23] MEDS ORDERED: Sodium Chloride 0.9% 500 ML IV SCH (08:15)
[2021-09-23] MEDS: Citalopram 20 MG TAB PO SCH (08:25)
[2021-09-23] MEDS: Lisinopril 5 MG TAB PO SCH (08:25)
[2021-09-23] MEDS: Polyethylene Glycol 3350 17 GM Packet PO SCH (08:25)
[2021-09-23] MEDS: Aspirin 81 mg Enteric Coated Tablet PO SCH ×2 (08:25→21:19)
[2021-09-23] MEDS: Senokot S 8.6-50 MG TAB PO SCH ×2 (08:25→21:16)
[2021-09-23] MEDS: Ferrous Sulfate 325 MG TAB PO SCH (08:25)
[2021-09-23] MEDS: Sodium Chloride 0.9% 1,000 ML IV SCH (15:26)
[2021-09-23] MEDS: Cyclobenzaprine 10 MG TAB PO PRN (21:15)
[2021-09-23] MEDS: Atorvastatin Calcium 40 MG TAB PO SCH (21:16)
[2021-09-24] MEDS: Acetaminophen 500 MG TAB PO SCH ×4 (01:30→15:38)
[2021-09-24] MEDS: Sodium Chloride 0.9% 1,000 ML IV SCH ×4 (05:51→17:19)
[2021-09-24 06:40] LABS: Hemoglobin 7.9 g/dL (14.0-18.0); Mean Corpuscular HGB CONC 32.2 g/dL (32.0-36.0); Mean Corpuscular Hemoglobin 36.4 pg (27.0-31.0); Mean Platelet Volume 8.4 fL (7.4-10.4); Platelet Count 167 thou/uL (130-400); RBC Distribution Width 12.8 % (11.5-14.5); Red Blood Cell (RBC) Count 2.16 mill/uL (4.70-6.10); White Blood Cell (WBC) Count 8.4 thou/uL (4.8-10.8)
[2021-09-24 07:16] LABS: Anion Gap 11 mmol/L (10-20); BUN (Urea Nitrogen) 39 mg/dL (8.4-25.7); Calc. Creatinine Clearance 64 mL/min (70-130); Carbon Dioxide 22 mmol/L (23-31); Chloride 106 mmol/L (98-107); Glucose 96 mg/dL (83-110); Magnesium 2.1 mg/dL (1.6-2.6); Phosphorus 2.7 mg/dL (2.3-4.7); Potassium 4.1 mmol/L (3.5-5.1); Sodium 135 mmol/L (136-145)
[2021-09-24 08:08] LABS: Band 4 % (5-11); Burr Cells SLIGHT = 2-5 cells (100X) (0-1/hpf); Eosinophils 2 % (0-10); Lymphocytes 25 % (21-51); MDiff Complete? YES; Macrocytosis SLIGHT = 6-15 cells (100X) (0-5/hpf); Monocytes 15 % (0-10); Neutrophil 54 % (42-75); Platelet Morphology Comment Appears Adequate; Polychromasia SLIGHT = 2-3 cells (100X) (0-2/hpf)
[2021-09-24] MEDS: Lisinopril 5 MG TAB PO SCH (08:44)
[2021-09-24] MEDS: Citalopram 20 MG TAB PO SCH (08:44)
[2021-09-24] MEDS: Aspirin 81 mg Enteric Coated Tablet PO SCH ×2 (08:44→19:49)
[2021-09-24] MEDS: Ferrous Sulfate 325 MG TAB PO SCH ×2 (08:44→15:38)
[2021-09-24] MEDS: Ascorbic Acid 500 mg Chewable Tablet PO SCH ×2 (08:44→19:49)
[2021-09-24] MEDS: Polyethylene Glycol 3350 17 GM Packet PO SCH ×2 (08:44→08:51)
[2021-09-24] MEDS: Senokot S 8.6-50 MG TAB PO SCH ×2 (08:45→19:49)
[2021-09-24] MEDS ORDERED: Melatonin 3 MG TAB PO PRN (16:40)
[2021-09-24] MEDS ORDERED: Lisinopril 5 MG TAB PO SCH (17:00)
[2021-09-24] MEDS: Atorvastatin Calcium 40 MG TAB PO SCH (19:49)
[2021-09-25] MEDS: Pentazocine HCl/Naloxone HCl 50/0.5 MG TAB PO SCH ×3 (00:58→22:52)
[2021-09-25] MEDS: Acetaminophen 500 MG TAB PO SCH ×4 (00:59→17:59)
[2021-09-25] MEDS: hydrALAZINE 20 MG/ML VIAL SLOW IVP PRN ×2 (01:00→15:48)
[2021-09-25] MEDS: Sodium Chloride 0.9% 1,000 ML IV SCH (02:50)
[2021-09-25 07:19] LABS: Anion Gap 11 mmol/L (10-20); BUN (Urea Nitrogen) 26 mg/dL (8.4-25.7); Calc. Creatinine Clearance 92 mL/min (70-130); Calcium 8.1 mg/dL (7.8-10.44); Carbon Dioxide 21 mmol/L (23-31); Chloride 107 mmol/L (98-107); Glucose 92 mg/dL (83-110); Magnesium 1.9 mg/dL (1.6-2.6); Phosphorus 2.6 mg/dL (2.3-4.7); Potassium 3.9 mmol/L (3.5-5.1); Sodium 135 mmol/L (136-145)
[2021-09-25 07:20] LABS: Hemoglobin 7.9 g/dL (14.0-18.0); Mean Corpuscular HGB CONC 33.8 g/dL (32.0-36.0); Mean Corpuscular Hemoglobin 37.8 pg (27.0-31.0); Mean Platelet Volume 7.5 fL (7.4-10.4); Platelet Count 225 thou/uL (130-400); RBC Distribution Width 13.1 % (11.5-14.5); Red Blood Cell (RBC) Count 2.09 mill/uL (4.70-6.10); White Blood Cell (WBC) Count 9.5 thou/uL (4.8-10.8)
[2021-09-25] MEDS ORDERED: Lisinopril 5 MG TAB PO SCH (09:00)
[2021-09-25] MEDS: Ferrous Sulfate 325 MG TAB PO SCH ×3 (09:55→20:10)
[2021-09-25] MEDS: Famotidine 20 MG TAB PO SCH ×2 (09:55→20:12)
[2021-09-25] MEDS: Aspirin 81 mg Enteric Coated Tablet PO SCH ×2 (09:55→20:12)
[2021-09-25] MEDS: Ascorbic Acid 500 mg Chewable Tablet PO SCH ×2 (09:55→20:10)
[2021-09-25] MEDS: Ibuprofen 200 MG TAB PO SCH ×2 (09:56→15:48)
[2021-09-25 10:17] LABS: Band 6 % (5-11); Burr Cells SLIGHT = 2-5 cells (100X) (0-1/hpf); Eosinophils 7 % (0-10); Lymphocytes 25 % (21-51); MDiff Complete? YES; Macrocytosis SLIGHT = 6-15 cells (100X) (0-5/hpf); Monocytes 15 % (0-10); Myelocyte 1 % (0-0); Neutrophil 46 % (42-75); Platelet Morphology Comment Appears Adequate
[2021-09-25] MEDS: Senokot S 8.6-50 MG TAB PO SCH ×2 (11:14→20:13)
[2021-09-25] MEDS: Polyethylene Glycol 3350 17 GM Packet PO SCH (11:14)
[2021-09-25 11:37] LABS: SARS-CoV-2 PCR by NAA Not Detected (NotDetected)
[2021-09-25] MEDS ORDERED: hydrALAZINE 20 MG/ML VIAL SLOW IVP PRN (16:09)
[2021-09-25] MEDS: Atorvastatin Calcium 40 MG TAB PO SCH (20:12)
[2021-09-25] MEDS: Lisinopril 10 MG TAB PO SCH (20:12)
[2021-09-26] MEDS: Ibuprofen 200 MG TAB PO SCH ×2 (00:33→09:01)
[2021-09-26] MEDS: Acetaminophen 500 MG TAB PO SCH ×3 (00:34→12:41)
[2021-09-26] MEDS ORDERED: Lisinopril 5 MG TAB PO SCH (09:00)
[2021-09-26] MEDS: Aspirin 81 mg Enteric Coated Tablet PO SCH (09:00)
[2021-09-26] MEDS: Polyethylene Glycol 3350 17 GM Packet PO SCH (09:00)
[2021-09-26] MEDS: Ferrous Sulfate 325 MG TAB PO SCH (09:00)
[2021-09-26] MEDS: Lisinopril 10 MG TAB PO SCH (09:01)
[2021-09-26] MEDS: Senokot S 8.6-50 MG TAB PO SCH (09:01)
[2021-09-26] MEDS: Famotidine 20 MG TAB PO SCH (09:01)
[2021-09-26] MEDS: Ascorbic Acid 500 mg Chewable Tablet PO SCH (09:02)
[2021-09-26] MEDS: Pentazocine HCl/Naloxone HCl 50/0.5 MG TAB PO SCH (10:33)
[2021-09-26 12:57] VITALS: BP 164/79; TEMP 98.2
[2021-09-26] MEDS ORDERED: Tamsulosin HCl 0.4 MG CAP PO SCH (21:00)
== END 2021-09-26 15:40 | DRG 522 ==
LOC: ERS 14:57 → SURG B 16:58 → SURG A 09-21 17:05
PROVIDERS: ADMIT Surgery; ATTEND Surgery
PROC: 0SRR019 Replacement of Right Hip Joint, Femoral Surface with Metal Synthetic Substitute, Cemented, Open Approach (ICD-10-PCS; principal; 2021-09-17)
PROC: 0QS704Z Reposition Left Upper Femur with Internal Fixation Device, Open Approach (ICD-10-PCS; 2021-09-22)
DX: S72.041A Displaced fracture of base of neck of right femur, initial encounter for closed fracture (principal); S72.142A Displaced intertrochanteric fracture of left femur, initial encounter for closed fracture; C90.00 Multiple myeloma not having achieved remission; N17.9 Acute kidney failure, unspecified; I13.0 Hypertensive heart and chronic kidney disease with heart failure and stage 1 through stage 4 chronic kidney disease, or unspecified chronic kidney disease; E87.1 Hypo-osmolality and hyponatremia; F05 Delirium due to known physiological condition; Z20.822 Contact with and (suspected) exposure to COVID-19; W01.0XXA Fall on same level from slipping, tripping and stumbling without subsequent striking against object, initial encounter; S50.312A Abrasion of left elbow, initial encounter; S20.412A Abrasion of left back wall of thorax, initial encounter; E83.39 Other disorders of phosphorus metabolism; I25.10 Atherosclerotic heart disease of native coronary artery without angina pectoris; N18.9 Chronic kidney disease, unspecified; I95.9 Hypotension, unspecified; I50.9 Heart failure, unspecified; Y93.01 Activity, walking, marching and hiking; Y92.230 Patient room in hospital as the place of occurrence of the external cause; W19.XXXA Unspecified fall, initial encounter; Z95.5 Presence of coronary angioplasty implant and graft; Z90.49 Acquired absence of other specified parts of digestive tract; I25.2 Old myocardial infarction; Y92.009 Unspecified place in unspecified non-institutional (private) residence as the place of occurrence of the external cause; Z90.81 Acquired absence of spleen; Z90.411 Acquired partial absence of pancreas; Z87.891 Personal history of nicotine dependence; Z92.21 Personal history of antineoplastic chemotherapy; Z91.81 History of falling
CPT/HCPCS: 36415; 70450; 71045; 72170; 76000; 80048; 80053; 83735; 84100; 85025; 86850; 86900; 86901; 93005; 96374; 96375; C1713; C1776; G0390; J0360; J1100; J1885; J2405; J2704; J2765; J3010; J3475; J3480; J3490; J7030; J7050; S0028; U0002; U0003; U0005

== ENCOUNTER 2022-06-25 10:02 | Outpatient (CLI) | payer MEDICARE, BC | END 2022-06-25 10:03 | disposition home or self-care (01) | LOC: BICCT 10:02 | PROVIDERS: ATTEND Orthopaedic Surgery | DX: S72.142S Displaced intertrochanteric fracture of left femur, sequela (principal); Z98.890 Other specified postprocedural states ==

== ENCOUNTER 2023-02-26 11:04 | Outpatient (CLI) | payer MEDICARE, BC ==
[2023-02-26 13:52] LABS: Hematocrit 42.8 % (38.8-50.0); Hemoglobin 14.4 g/dL (13.5-17.5); Mean Corpuscular HGB CONC 33.6 g/dL (32.0-36.0); Mean Corpuscular Hemoglobin 35.2 pg (27.0-33.0); Mean Corpuscular Volume 104.6 fl (81.2-95.1); Mean Platelet Volume 11.4 fl (7.4-10.4); Platelet Count 187 10x3/uL (150-450); RBC Distribution Width 13.9 % (11.5-14.5); Red Blood Cell (RBC) Count 4.09 10x6/uL (4.32-5.72); White Blood Cell (WBC) Count 6.2 10x3/uL (3.5-10.5)
[2023-02-26 14:22] LABS: Anion Gap 15 mmol/L (10-20); BUN (Urea Nitrogen) 14 mg/dL (8.4-25.7); Calc. Creatinine Clearance 0 mL/min (70-130); Calcium 9.1 mg/dL (7.8-10.44); Carbon Dioxide 25 mmol/L (23-31); Chloride 100 mmol/L (98-107); Estimated GFR 65; Glucose 63 mg/dL (83-110); Potassium 4.6 mmol/L (3.5-5.1); Sodium 135 mmol/L (136-145)
== END 2023-02-26 11:05 | disposition home or self-care (01) ==
LOC: LABBT 11:04
PROVIDERS: ATTEND Orthopaedic Surgery
DX: Z01.812 Encounter for preprocedural laboratory examination (principal); S72.142A Displaced intertrochanteric fracture of left femur, initial encounter for closed fracture
CPT/HCPCS: 80048; 85027

== ENCOUNTER 2023-03-03 11:51 | Inpatient (IN) | payer MEDICARE, BC ==
[2023-02-26 11:37] VITALS: BMI 26.4
[2023-03-03] MEDS ORDERED: Vancomycin 1 GM/200 ML (FROZEN) BAG ONE (12:55)
[2023-03-03] MEDS ORDERED: fentaNYL PF 100 MCG/2 ML SYRINGE ONE (13:24)
[2023-03-03] MEDS ORDERED: SUGAMMADEX SODIUM 200 MG/2 ML VIAL ONE (13:25)
[2023-03-03] MEDS ORDERED: Sodium Chloride 0.9% 100 ML ONE (13:51)
[2023-03-03] MEDS ORDERED: CEFAZOLIN 2 GM VIAL ONE (13:51)
[2023-03-03] MEDS ORDERED: Lidocaine 1% PF 5 ML VIAL ONE (14:15)
[2023-03-03] MEDS ORDERED: Rocuronium Bromide 10 MG/ML (10ML VIAL) ONE (14:15)
[2023-03-03] MEDS ORDERED: Succinylcholine 200 MG/10 ml SYRINGE FS ONE (14:15)
[2023-03-03] MEDS ORDERED: PROPOFOL 200 MG/20 ML VIAL ONE (14:15)
[2023-03-03] MEDS ORDERED: Communication Order-Pharmacy FS SCH (16:00)
[2023-03-03] MEDS ORDERED: fentaNYL 50 mcg/mL 1 mL Vial ONE ×2 (16:12→16:56)
[2023-03-03] MEDS ORDERED: hydrALAZINE 20 MG/ML VIAL ONE (16:27)
[2023-03-03] MEDS ORDERED: Ondansetron PF 4 MG/2 ML Vial ONE (16:51)
[2023-03-03] MEDS: HYDROcodone/Acetaminophen 10/325 mg Tablet PO PRN ×2 (17:42→21:30)
[2023-03-03] MEDS ORDERED: Sodium Chloride 0.9% 1,000 ML IV SCH (19:15)
[2023-03-03] MEDS ORDERED: Ondansetron PF 4 MG/2 ML Vial IVP PRN (19:51)
[2023-03-03] MEDS ORDERED: Ondansetron ODT 4 MG TAB PO PRN (19:51)
[2023-03-03] MEDS: Atorvastatin Calcium 20 MG TAB PO SCH (21:30)
[2023-03-03] MEDS: CEFAZOLIN 2 GM in Sodium Chloride 0.9% 100 ML IVPB SCH (21:30)
[2023-03-04] MEDS: HYDROcodone/Acetaminophen 10/325 mg Tablet PO PRN ×3 (05:01→13:54)
[2023-03-04] MEDS: CEFAZOLIN 2 GM in Sodium Chloride 0.9% 100 ML IVPB SCH ×2 (05:02→13:30)
[2023-03-04 05:44] LABS: #Monocytes 1.3 thou/uL (0.11-0.59); #Neutrophils 6.3 thou/uL (1.40-6.50); %Basophils 0.2 % (0.0-1.0); %Eosinophils 0.1 % (0.0-10.0); %Lymphocytes 22.9 % (21.0-51.0); %Monocytes 13.1 % (0.0-10.0); %Neutrophils 63.5 % (42.0-75.0); Hematocrit 38.3 % (42.0-52.0); Hemoglobin 12.7 g/dL (14.0-18.0); Mean Corpuscular HGB CONC 33.2 g/dL (32.0-36.0); Mean Corpuscular Hemoglobin 36.5 pg (27.0-31.0); Mean Corpuscular Volume 110.1 fl (78.0-98.0); Platelet Count 137 10x3/uL (130-400); RBC Distribution Width 14.2 % (11.5-14.5); Red Blood Cell (RBC) Count 3.48 mill/uL (4.70-6.10); White Blood Cell (WBC) Count 9.9 10x3/uL (4.8-10.8)
[2023-03-04 06:10] LABS: Anion Gap 11 mmol/L (10-20); BUN (Urea Nitrogen) 20 mg/dL (8.4-25.7); Calc. Creatinine Clearance 69 mL/min (70-130); Carbon Dioxide 24 mmol/L (23-31); Chloride 103 mmol/L (98-107); Estimated GFR 63; Glucose 118 mg/dL (83-110); Potassium 4.3 mmol/L (3.5-5.1); Sodium 134 mmol/L (136-145)
[2023-03-04 06:19] LABS: Anisocytosis SLIGHT = 6-15 cells HPF (0-5); Burr Cells SLIGHT = 2-5 cells HPF (0-1); CellaVision Operator ID lab.sh2; Macrocytosis MARKED = >30 cells HPF (0-5); Ovalocytes SLIGHT = 2-5 cells HPF (0-1); Platelet Adequacy Comment Platelets Normal; Polychromasia SLIGHT = 2-3 cells HPF (0-2)
[2023-03-04] MEDS: Citalopram 10 MG TAB PO SCH (08:03)
[2023-03-04] MEDS: Lisinopril 2.5 MG TAB PO SCH (08:03)
[2023-03-04] MEDS: Cyanocobalamin (Vitamin B-12) 1,000 MCG TAB PO SCH (08:03)
[2023-03-04] MEDS: Polyethylene Glycol 3350 17 GM Packet PO SCH (08:04)
[2023-03-04] MEDS ORDERED: FLU VACC QS2023(65UP)/MF59C/PF 60 MCG/0.5 ML SYRINGE IM ONE (09:00)
[2023-03-04] MEDS: Apixaban 2.5 MG TAB PO SCH ×2 (09:39→20:18)
[2023-03-04] MEDS ORDERED: traMADol HCl 50 MG TAB PO PRN (12:29)
[2023-03-04] MEDS: Ketorolac Tromethamine 30 MG/ML VIAL IVP PRN ×2 (13:54→20:19)
[2023-03-04] MEDS: Atorvastatin Calcium 20 MG TAB PO SCH (20:18)
[2023-03-05] MEDS: HYDROcodone/Acetaminophen 10/325 mg Tablet PO PRN ×2 (04:08→14:39)
[2023-03-05 05:48] LABS: #Eosinphils 0.1 thou/uL (0.0-0.7); #Monocytes 1.4 thou/uL (0.11-0.59); #Neutrophils 6.7 thou/uL (1.40-6.50); %Basophils 0.3 % (0.0-1.0); %Eosinophils 0.6 % (0.0-10.0); %Lymphocytes 17.8 % (21.0-51.0); %Monocytes 14.3 % (0.0-10.0); %Neutrophils 66.7 % (42.0-75.0); Anion Gap 11 mmol/L (10-20); BUN (Urea Nitrogen) 25 mg/dL (8.4-25.7); Calc. Creatinine Clearance 57 mL/min (70-130); Calcium 8.4 mg/dL (7.8-10.44); Carbon Dioxide 25 mmol/L (23-31); Chloride 99 mmol/L (98-107); Estimated GFR 51; Glucose 84 mg/dL (83-110); Hematocrit 35.3 % (42.0-52.0); Hemoglobin 11.9 g/dL (14.0-18.0); Mean Corpuscular HGB CONC 33.7 g/dL (32.0-36.0); Mean Corpuscular Hemoglobin 36.2 pg (27.0-31.0); Mean Corpuscular Volume 107.3 fl (78.0-98.0); Mean Platelet Volume 11.4 fL (7.4-10.4); Platelet Count 125 10x3/uL (130-400); Potassium 3.9 mmol/L (3.5-5.1); RBC Distribution Width 14.2 % (11.5-14.5); Red Blood Cell (RBC) Count 3.29 mill/uL (4.70-6.10); Sodium 131 mmol/L (136-145); White Blood Cell (WBC) Count 10.1 10x3/uL (4.8-10.8)
[2023-03-05] MEDS: Ketorolac Tromethamine 30 MG/ML VIAL IVP PRN (05:55)
[2023-03-05] MEDS ORDERED: Potassium Chloride 20 MEQ TAB PO SCH (09:00)
[2023-03-05] MEDS: Cyanocobalamin (Vitamin B-12) 1,000 MCG TAB PO SCH (09:14)
[2023-03-05] MEDS: Citalopram 10 MG TAB PO SCH (09:14)
[2023-03-05] MEDS: Lisinopril 2.5 MG TAB PO SCH (09:15)
[2023-03-05] MEDS: Apixaban 2.5 MG TAB PO SCH ×2 (09:16→22:19)
[2023-03-05] MEDS: Polyethylene Glycol 3350 17 GM Packet PO SCH (09:16)
[2023-03-05 10:16] LABS: Bacteria/HPF None Seen HPF (None Seen); Bilirubin Negative (Negative); Blood, Urine Negative (Negative); CAUTI Indications for Culture Fever or rigors; Clarity Clear (Clear); Glucose, Urine (Dipstick) Normal (Negative); Ketone, Urine Trace mg/dL (Negative); Leukocyte Negative Leu/uL (Negative); Nitrite Negative (Negative); Protein, Urine (Dipstick) 30 mg/dL (Neg-Trace); RBC/HPF 0-3 HPF (0-3); Specific Gravity, Urine 1.027 (1.002-1.036); Squamous Epithelial 0-3 HPF (0-3); Urobilinogen Normal mg/dL (Less than 2); pH, Urine 5.5 (5.0-9.0)
[2023-03-05 10:28] LABS: Urine Culture Reflex No No
[2023-03-05] MEDS: Atorvastatin Calcium 20 MG TAB PO SCH (22:18)
[2023-03-06 05:38] LABS: #Eosinphils 0.1 thou/uL (0.0-0.7); #Monocytes 1.3 thou/uL (0.11-0.59); #Neutrophils 5.4 thou/uL (1.40-6.50); %Basophils 0.1 % (0.0-1.0); %Lymphocytes 17.3 % (21.0-51.0); %Monocytes 15.5 % (0.0-10.0); %Neutrophils 65.7 % (42.0-75.0); Hematocrit 31.6 % (42.0-52.0); Hemoglobin 10.8 g/dL (14.0-18.0); Mean Corpuscular HGB CONC 34.2 g/dL (32.0-36.0); Mean Corpuscular Hemoglobin 36.4 pg (27.0-31.0); Mean Corpuscular Volume 106.4 fl (78.0-98.0); Mean Platelet Volume 11.2 fL (7.4-10.4); Platelet Count 120 10x3/uL (130-400); RBC Distribution Width 13.8 % (11.5-14.5); Red Blood Cell (RBC) Count 2.97 mill/uL (4.70-6.10); White Blood Cell (WBC) Count 8.1 10x3/uL (4.8-10.8)
[2023-03-06 06:02] LABS: Anion Gap 12 mmol/L (10-20); BUN (Urea Nitrogen) 23 mg/dL (8.4-25.7); Calc. Creatinine Clearance 74 mL/min (70-130); Calcium 8.4 mg/dL (7.8-10.44); Carbon Dioxide 24 mmol/L (23-31); Chloride 99 mmol/L (98-107); Estimated GFR 69; Glucose 101 mg/dL (83-110); Potassium 4.1 mmol/L (3.5-5.1); Sodium 131 mmol/L (136-145)
[2023-03-06] MEDS: Citalopram 10 MG TAB PO SCH (09:36)
[2023-03-06] MEDS: Lisinopril 2.5 MG TAB PO SCH (09:36)
[2023-03-06] MEDS: Cyanocobalamin (Vitamin B-12) 1,000 MCG TAB PO SCH (09:36)
[2023-03-06] MEDS: Polyethylene Glycol 3350 17 GM Packet PO SCH (09:37)
[2023-03-06] MEDS: Apixaban 2.5 MG TAB PO SCH ×2 (09:37→20:32)
[2023-03-06] MEDS: Atorvastatin Calcium 20 MG TAB PO SCH (20:32)
[2023-03-07] MEDS ORDERED: Acetaminophen/Codeine 30-300mg Tablet PO PRN (08:30)
[2023-03-07] MEDS ORDERED: Gabapentin 300 MG CAP PO SCH (09:00)
[2023-03-07] MEDS: Citalopram 10 MG TAB PO SCH (09:12)
[2023-03-07] MEDS: Polyethylene Glycol 3350 17 GM Packet PO SCH (09:13)
[2023-03-07] MEDS: Lisinopril 2.5 MG TAB PO SCH (09:14)
[2023-03-07] MEDS: Apixaban 2.5 MG TAB PO SCH (09:14)
[2023-03-07] MEDS: Cyanocobalamin (Vitamin B-12) 1,000 MCG TAB PO SCH (09:15)
[2023-03-07] MEDS: HYDROcodone/Acetaminophen 10/325 mg Tablet PO PRN ×2 (09:15→15:16)
[2023-03-07 15:28] VITALS: BP 123/78; TEMP 98.2
== END 2023-03-07 16:13 | disposition home or self-care (01) | DRG 522 ==
LOC: SDC 11:51 → SURG A 16:06
PROVIDERS: ADMIT Orthopaedic Surgery; ATTEND Orthopaedic Surgery
PROC: 0SRS0JA Replacement of Left Hip Joint, Femoral Surface with Synthetic Substitute, Uncemented, Open Approach (ICD-10-PCS; principal; 2023-03-03)
PROC: 0SPB04Z Removal of Internal Fixation Device from Left Hip Joint, Open Approach (ICD-10-PCS; 2023-03-03)
DX: S72.142P Displaced intertrochanteric fracture of left femur, subsequent encounter for closed fracture with malunion (principal); I50.32 Chronic diastolic (congestive) heart failure; E87.1 Hypo-osmolality and hyponatremia; I25.10 Atherosclerotic heart disease of native coronary artery without angina pectoris; I25.2 Old myocardial infarction; I11.0 Hypertensive heart disease with heart failure; E78.5 Hyperlipidemia, unspecified; K21.9 Gastro-esophageal reflux disease without esophagitis; F32.A Depression, unspecified; Z90.49 Acquired absence of other specified parts of digestive tract; Z96.641 Presence of right artificial hip joint; Z79.899 Other long term (current) drug therapy; Z86.711 Personal history of pulmonary embolism; R50.82 Postprocedural fever; W18.30XD Fall on same level, unspecified, subsequent encounter; Z98.890 Other specified postprocedural states
CPT/HCPCS: 36415; 71045; 72170; 80048; 81001; 85025; 90471; 90694; C1776; G0008; J0360; J1885; J2405; J2704; J3010; J3370-JW; J3490; J7050